=== PATIENT | male | born 1930 | race Caucasian/White ===

== ENCOUNTER 2017-07-29 13:49 | Inpatient (IN) | payer MEDICARE, BC ==
[~2017-07-29] VITALS: Ht 182.9 cm; Wt 87.1 kg
[~2017-07-29 13:49] MED LIST: ALEVE220 M1 PO; ASPIR-LOW81 MG PO; FLOMAX0.4 MG PO; HYDROCODON-ACE1 EA11 PO; NORCO 5-325 TA1 EACH PO; PROAIR HFA INH8.5 GM PO; PROTONIX IV40 MG PO; SYMBICORT 16010.2 GM INH; TYLENOL; ULTRAM 50MG50 MG PO; ULTRAM50 MG PO; ZOFRAN4 MG PO
--- OUTSIDE RECORDS SUMMARY | 2017-07-29 13:52 | XMS REPORT ---
Author Author [facility] Address Unknown Phone Unavailable Care Team Providers Care Low Vision Therapist Name Role Phone JULIO COE Unavailable Unavailable Problems This patient has no known problems. Allergies, Adverse Reactions, Alerts This patient has no known allergies or adverse reactions. Medications This patient has no known medications. Results Test Description Test Time Test Comments Text Results Atomic Results Result Comments FOOT RIGHT COMPLETE [place] [address] Patient Name: JARAD SHERMAN MR #: [id number] : 1930 Age/Sex: 86/M Req #: [id number] Adm Physician: Ordered by: JULIO COE MD Report #: [id number] Location: ER Room/Bed: Procedure: [id number] DX/FOOT RIGHT COMPLETE Exam Date: 05/22/17 Exam Time: 1445 REPORT STATUS: Signed Exam: Right foot 3 views History: Pain Comparison: None. Findings: No fracture or malalignment. Joint spaces preserved. Plantar calcaneal spurs. Impression: No acute osseous abnormality Plantar calcaneal spurs. Signed by: Dr. Jonathan Remy M.D. on 05/22/2017 3:04 PM Dictated By: JONATHAN REMY MD [id number] COPY TO: JULIO COE MD
[2017-07-29] MEDS ORDERED: DIATRIZOATE MEGL/DIATRIZOA SOD 30 ML BTL PO ONE (14:30)
[2017-07-29] MEDS ORDERED: ONDANSETRON HCL INJ 2 MG/ML VIAL IV STA (14:42)
[2017-07-29 14:53] LABS: BASOPHILS % 0.3 % (0.0-1.0); EOSINOPHILS % 0.2 % (0.0-6.0); HEMATOCRIT 41.2 % (38.2-49.6); HEMOGLOBIN 13.8 g/dL (14.0-18.0); LYMPHOCYTES % 13.1 % (18.0-39.1); MEAN CORPUSCULAR HEMOGLOBIN 31.3 pg (28-32); MEAN CORPUSCULAR HGB CONC 33.5 g/dL (31-35); MEAN CORPUSCULAR VOLUME 93.4 fL (81-99); MONOCYTES # (AUTO) 1.4 (0.2-0.8); MONOCYTES % 9.3 % (4.4-11.3); NEUTROPHILS # (AUTO) 11.6 (2.1-6.9); NEUTROPHILS % 76.4 % (38.7-80.0); PLATELET COUNT 266 x10e3/uL (140-360); RED BLOOD COUNT 4.41 x10e6/uL (4.3-5.7); RED CELL DISTRIBUTION WIDTH 14.5 % (11.7-14.4)
[2017-07-29 15:14] LABS: BILIRUBIN,URINE NEGATIVE (NEGATIVE); CLARITY,URINE SL CLOUDY (CLEAR); COLOR,URINE YELLOW (YELLOW); KETONES,URINE NEGATIVE (NEGATIVE); LEUKOCYTE ESTERASE ,URINE NEGATIVE (NEGATIVE); NITRITE,URINE NEGATIVE (NEGATIVE); PROTEIN,URINE DIPSTICK NEGATIVE (NEGATIVE); URINE UROBILINOGEN 0.2 mg/dL (0.2 - 1)
[2017-07-29 15:16] LABS: ALANINE AMINOTRANSFERASE 16 IU/L (0-55); ALBUMIN 3.6 g/dL (3.5-5.0); ALKALINE PHOSPHATASE 70 IU/L (40-150); AMYLASE 25 U/L (25-125); ANION GAP 12.8 mmol/L (8-16); BLOOD UREA NITROGEN 14 mg/dL (7-26); BUN/CREATININE RATIO 17 (6-25); CALCIUM 8.9 mg/dL (8.4-10.2); CARBON DIOXIDE 26 mmol/L (22-29); CHLORIDE 101 mmol/L (98-107); CREATININE, SERUM 0.81 mg/dL (0.72-1.25); EST GLOMERULAR FILTRATION RATE > 60 ML/MIN (60-); GLUCOSE 102 mg/dL (74-118); LIPASE < 4 U/L (8-78); MAGNESIUM 2.1 MG/DL (1.3-2.1); POTASSIUM 3.8 mmol/L (3.5-5.1); SODIUM 136 mmol/L (136-145)
--- NOTE | 2017-07-29 16:06 | Diagnostic Imaging Report ---
PROCEDURE: CT ABDOMEN AND PELVIS WITH CONTRAST TECHNIQUE: The abdomen and pelvis were scanned utilizing a multidetector helical scanner from the diaphragm to the lesser trochanter after the IV administration of 100 cc of Isovue 370 and the oral administration of dilute Gastrografin. Coronal and sagittal multiplanar reformations were obtained. COMPARISON: [facility], CT, CT ABDOMEN/PELVIS W, 03/22/2014, 18:53. INDICATIONS: llq pain, diverticulitis FINDINGS: LOWER THORAX: Stable bilateral lower lobe and right middle lobe fibrotic changes. No consolidation. HEPATOBILIARY: Decreased attenuation of the liver compared to the spleen, consistent with steatosis. No focal lesions. No biliary ductal dilation. Gallbladder is unremarkable. SPLEEN: No splenomegaly. PANCREAS: No focal masses or ductal dilatation. Marked fatty replacement, unchanged from previous ADRENALS: No adrenal nodules. KIDNEYS/URETERS: No hydronephrosis, stones, or solid mass lesions. PELVIC ORGANS/BLADDER: Mild circumferential bladder wall thickening. Marked enlargement of the prostate, which measures approximately 5.5 x 5.9 x 5.0 cm (estimated volume 84 mL). PERITONEUM / RETROPERITONEUM: No free air or fluid. LYMPH NODES: No lymphadenopathy. VESSELS: Atherosclerotic calcification of the abdominal aorta and iliac vessels. GI TRACT: Descending and sigmoid colon diverticulosis. There is an approximately 7 cm portion of the mid descending colon (coronal image 61 and series 2, image 36-43), which shows moderate wall thickening and surrounding fat stranding/inflammatory changes, with associated thickening of the lateroconal fascia. No foci of extraluminal air or well defined adjacent enhancing fluid collections.. Rest of the bowel shows no wall thickening, dilation, or obstruction. BONES AND SOFT TISSUES: No aggressive lytic lesions. Multilevel degenerative disc changes in the lumbosacral spine, worse at L4-L5, and L5-S1. IMPRESSION: 1. Findings consistent with descending colon diverticulitis, in the appropriate clinical setting. No perforation or adjacent abscess formation. 2. Hepatic steatosis. No focal lesions. 3. Mild circumferential bladder wall thickening, likely reflecting bladder outlet obstruction from a markedly enlarged prostate. Jesus Ryan M.D. Dictated by: Jesus Ryan M.D. on 07/29/2017 at 16:15 Electronically approved by: Jesus Ryan M.D. on 07/29/2017 at 16:15
[2017-07-29] MEDS ORDERED: HYDROMORPHONE 1MG/1ML INJ IV PRN (17:00)
[2017-07-29] MEDS ORDERED: METRONIDAZOLE 500MG/NS 100ML IV SCH (18:00)
[2017-07-29] MEDS: SODIUM CHLORIDE 0.9% 1000ML 1,000 ML IV SCH (18:10)
[2017-07-29] MEDS: ONDANSETRON HCL INJ 2 MG/ML VIAL IV PRN (18:10)
[2017-07-29] MEDS: HYDROMORPHONE 2MG/ML INJ IV PRN ×2 (18:12→22:00)
[2017-07-29] MEDS: PIPER-TAZ 3.375 GM 50 ML IV SCH (18:18)
[2017-07-29] MEDS: METRONIDAZOLE 500MG/NS 100ML 100 ML IV SCH (18:50)
--- NOTE | 2017-07-29 20:18 | History and Physical ---
This 87-year-old male comes in with abdominal pain. HISTORY OF PRESENT ILLNESS: Mr. Ortega has a history of hypertension. He was in his usual state of health until 2 days prior to admission the patient started to have left-sided abdominal pain. He did not make much of it. He continued to take some home medications. He did not get any better. The pain was described as sharp and localized to the left lower quadrant and also with no radiation. The pain was unbearable and he came into the emergency room and was found to have diverticulitis. PAST MEDICAL HISTORY: History of peptic ulcer in the past. HOME MEDICATIONS: Symbicort, Flomax for his BPH and tramadol for pain control for osteoarthritis. PAST SURGICAL HISTORY: History of apparent back surgery and neck surgery with Dr. Angel and also inguinal hernia repair. The patient also had history of peptic ulcer in the past which has been treated medically. ALLERGIES: SEE NURSE'S NOTE. REVIEW OF SYSTEMS: Negative for chest pain. No shortness of breath. Positive for some nausea, no vomiting, no diarrhea, no constipation, no rectal bleeding. Positive for abdominal pain. No hematochezia and no hematemesis. No blurring of the eyes, no diplopia and no headaches. PHYSICAL EXAMINATION GENERAL: The patient is alert and oriented x3. Pain is controlled right now with pain medication. VITAL SIGNS: Temperature 97.8, pulse rate of 18, blood pressure 145/71 and pulse oximetry 98%. HEENT: Normocephalic, atraumatic. There is no icterus present. CVS: S1 and S2 normal. Regular rate and rhythm. LUNGS: Clear to auscultation. ABDOMEN: Tender in the left lower quadrant. EXTREMITIES: No clubbing, no cyanosis and no edema. LABORATORY DATA: Initial white count 15,000, hemoglobin 13.8, hematocrit 41.2, chemistry show sodium 136, potassium 3.8, BUN 14 and creatinine of 0.89. Urine was negative. IMAGING: Abdominal CT shows descending colon diverticulitis, no perforations, hepatic steatosis and mild circumferential bladder wall thickening involving enlarged prostate. ASSESSMENT: Acute diverticulitis. PLAN: The patient has been put on Zosyn and hydromorphone for pain control and also Flagyl. Will continue to monitor the patient. Place on clear liquid diet. The patient will continue pain management and some IV fluids. Further recommendations depending on clinical course and also the patient will be here for probably 1-2 days and can be discharged home once he is tolerating regular diet. Will continue to monitor the patient. Job#: [id number]
[2017-07-29 21:15] VITALS: BP 156/71
[2017-07-29] MEDS ORDERED: PIPER-TAZ 3.375 GM/50 ML BAG IV SCH (22:00)
[2017-07-29] MEDS ORDERED: SODIUM CHLORIDE 0.9% 50ML 50 ML ONE (22:27)
[2017-07-29] MEDS ORDERED: IOPAMIDOL 370 MG/ML 200 ML INFUS..BTL INJ ONE (22:27)
[2017-07-30] VITALS (8 sets, daily range): BP systolic 117–180; BP diastolic 60–93
[2017-07-30] MEDS: PIPER-TAZ 3.375 GM 50 ML IV SCH ×3 (02:00→17:15)
[2017-07-30] MEDS: SODIUM CHLORIDE 0.9% 1000ML 1,000 ML IV SCH ×4 (05:56→23:05)
[2017-07-30] MEDS: METRONIDAZOLE 500MG/NS 100ML 100 ML IV SCH ×4 (05:57→17:15)
[2017-07-30 07:36] LABS: BASOPHILS % 0.2 % (0.0-1.0); EOSINOPHILS % 0.3 % (0.0-6.0); HEMATOCRIT 41.8 % (38.2-49.6); HEMOGLOBIN 13.5 g/dL (14.0-18.0); LYMPHOCYTES # (AUTO) 2.3 (1.0-3.2); LYMPHOCYTES % 16.4 % (18.0-39.1); MEAN CORPUSCULAR HEMOGLOBIN 30.5 pg (28-32); MEAN CORPUSCULAR HGB CONC 32.3 g/dL (31-35); MEAN CORPUSCULAR VOLUME 94.6 fL (81-99); MONOCYTES # (AUTO) 1.4 (0.2-0.8); MONOCYTES % 9.9 % (4.4-11.3); NEUTROPHILS # (AUTO) 10.1 (2.1-6.9); NEUTROPHILS % 72.6 % (38.7-80.0); PLATELET COUNT 273 x10e3/uL (140-360); RED BLOOD COUNT 4.42 x10e6/uL (4.3-5.7); RED CELL DISTRIBUTION WIDTH 14.5 % (11.7-14.4)
[2017-07-30 07:55] LABS: ANION GAP 11.3 mmol/L (8-16); BLOOD UREA NITROGEN 11 mg/dL (7-26); BUN/CREATININE RATIO 13 (6-25); CALCIUM 8.8 mg/dL (8.4-10.2); CARBON DIOXIDE 27 mmol/L (22-29); CHLORIDE 104 mmol/L (98-107); CREATININE, SERUM 0.84 mg/dL (0.72-1.25); EST GLOMERULAR FILTRATION RATE > 60 ML/MIN (60-); GLUCOSE 100 mg/dL (74-118); POTASSIUM 4.3 mmol/L (3.5-5.1); SODIUM 138 mmol/L (136-145)
[2017-07-30] MEDS: ONDANSETRON HCL INJ 2 MG/ML VIAL IV PRN ×2 (08:39→22:29)
[2017-07-30] MEDS: HYDROMORPHONE 2MG/ML INJ IV PRN ×2 (08:39→22:29)
[2017-07-30] MEDS: TAMSULOSIN HCL 0.4 MG CAP PO SCH (08:47)
[2017-07-31] VITALS: BP 116/58
[2017-07-31] MEDS: PIPER-TAZ 3.375 GM 50 ML IV SCH ×3 (02:00→19:08)
[2017-07-31 04:00] VITALS: BP 129/65
[2017-07-31] MEDS: METRONIDAZOLE 500MG/NS 100ML 100 ML IV SCH ×4 (06:00→18:00)
[2017-07-31 06:28] VITALS: BP 129/65
[2017-07-31] MEDS: TAMSULOSIN HCL 0.4 MG CAP PO SCH (07:53)
[2017-07-31 08:00] VITALS: BP 175/85
[2017-07-31 12:00] VITALS: BP 150/77
[2017-07-31 16:00] VITALS: BP 173/99
[2017-07-31] MEDS: HYDROMORPHONE 2MG/ML INJ IV PRN (16:30)
[2017-08-01] MEDS: METRONIDAZOLE 500MG/NS 100ML 100 ML IV SCH ×4 (00:17→17:39)
[2017-08-01] MEDS: PIPER-TAZ 3.375 GM 50 ML IV SCH ×3 (01:20→17:39)
[2017-08-01] MEDS: SODIUM CHLORIDE 0.9% 1000ML 1,000 ML IV SCH (03:05)
[2017-08-01 07:00] LABS: BASOPHILS # (AUTO) 0.1 (0.0-0.1); BASOPHILS % 0.5 % (0.0-1.0); EOSINOPHILS # (AUTO) 0.1 (0.0-0.4); HEMATOCRIT 39.1 % (38.2-49.6); HEMOGLOBIN 12.5 g/dL (14.0-18.0); LYMPHOCYTES # (AUTO) 1.9 (1.0-3.2); LYMPHOCYTES % 18.2 % (18.0-39.1); MONOCYTES # (AUTO) 1.2 (0.2-0.8); NEUTROPHILS # (AUTO) 7.3 (2.1-6.9); NEUTROPHILS % 68.7 % (38.7-80.0); PLATELET COUNT 243 x10e3/uL (140-360); RED BLOOD COUNT 4.16 x10e6/uL (4.3-5.7); RED CELL DISTRIBUTION WIDTH 14.6 % (11.7-14.4)
[2017-08-01 07:32] LABS: ANION GAP 11.9 mmol/L (8-16); BLOOD UREA NITROGEN 10 mg/dL (7-26); BUN/CREATININE RATIO 13 (6-25); CALCIUM 8.6 mg/dL (8.4-10.2); CARBON DIOXIDE 25 mmol/L (22-29); CHLORIDE 103 mmol/L (98-107); EST GLOMERULAR FILTRATION RATE > 60 ML/MIN (60-); GLUCOSE 96 mg/dL (74-118); POTASSIUM 3.9 mmol/L (3.5-5.1); SODIUM 136 mmol/L (136-145)
[2017-08-01 07:55] VITALS: BP 156/78
[2017-08-01 08:13] VITALS: BP 156/78
[2017-08-01] MEDS: TAMSULOSIN HCL 0.4 MG CAP PO SCH (09:28)
[2017-08-01 13:19] VITALS: BP 156/86
[2017-08-01 17:25] VITALS: BP 155/91
[2017-08-01] MEDS ORDERED: CIPRO500 MG PO (18:00)
[2017-08-01] MEDS ORDERED: FLAGYL250 MG PO (18:00)
== END 2017-08-01 18:44 | disposition home or self-care (01) | DRG 392 ==
LOC: ER 13:49 → MED/SURG2 20:15
PROVIDERS: ADMIT Family Medicine; ATTEND Family Medicine
DX: K57.32 Diverticulitis of large intestine without perforation or abscess without bleeding (principal); I10 Essential (primary) hypertension; N40.0 Benign prostatic hyperplasia without lower urinary tract symptoms; M19.90 Unspecified osteoarthritis, unspecified site; Z87.11 Personal history of peptic ulcer disease
CPT/HCPCS: 36415; 74177; 80048; 80053; 81001; 82150; 83690; 83735; 85025; 87040; 87086; 96360; 96365; 96374; 99284; J2405; J2543; J7030; Q9967

== ENCOUNTER 2018-07-09 10:15 | Emergency (ER) | payer MEDICARE, BC ==
[~2018-07-09] VITALS: Ht 182.9 cm; Wt 87.1 kg
[~2018-07-09 10:15] MED LIST changes: +CIPRO500 MG PO; +FLAGYL250 MG PO
--- NOTE | 2018-07-09 11:11 | Diagnostic Imaging Report ---
EXAMINATION: Left Hip Films with AP pelvis CLINICAL HISTORY:Status post fall with left lower back pain COMPARISON: None. DISCUSSION: The bones are well-mineralized. No acute, displaced fractures or dislocations. Hip and sacroiliac joints are relatively well-preserved. Degenerative changes at L4-L5 and L5-S1. No gross soft tissue abnormalities. No osteolytic or osteoblastic lesions. IMPRESSION: 1. No acute abnormalities. Signed by: Dr. Jesus Ryan M.D. on 07/09/2018 11:08 AM
--- NOTE | 2018-07-09 11:14 | Diagnostic Imaging Report ---
EXAMINATION: Lumbar spine series. CLINICAL HISTORY: Status post fall, left lower back pain COMPARISON: None. DISCUSSION: 5 views of the lumbar spine are submitted for interpretation. Five nonrib-bearing lumbar type vertebral bodies are identified. No acute, displaced fractures or subluxation. Minimal grade 1 anterolisthesis of L5 on L4 and L3 on L4. Bilateral oblique views show no spondylolysis. Degenerative disc changes with intervertebral disc space narrowing and osteophytosis predominantly at L3-L4, L4-L5 and L5-S1, with associated minimal leftward curvature. Vertebral body heights are preserved. Facet hypertrophy L3-S1. Vascular calcifications in the distal abdominal aorta. IMPRESSION: 1. No acute abnormalities. 2. 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 The staff physician below has personally reviewed this exam on the date of dictation. Signed by: Dr. Jesus Ryan M.D. on 07/09/2018 11:11 AM
== END 2018-07-09 12:42 | disposition home or self-care (01) ==
LOC: ER 10:15
DX: M25.552 Pain in left hip (principal); S70.02XA Contusion of left hip, initial encounter; S30.0XXA Contusion of lower back and pelvis, initial encounter; W01.0XXA Fall on same level from slipping, tripping and stumbling without subsequent striking against object, initial encounter; Y92.008 Other place in unspecified non-institutional (private) residence as the place of occurrence of the external cause; Z87.11 Personal history of peptic ulcer disease
CPT/HCPCS: 72110; 99283

== ENCOUNTER 2018-08-28 10:22 | Inpatient (IN) | payer MEDICARE, BC ==
[~2018-08-28] VITALS: Ht 182.9 cm; Wt 91.8 kg
[2018-08-28] MEDS ORDERED: ONDANSETRON HCL INJ 2MG/ML 2ML 2 MG/ML VIAL IV STA (11:04)
[2018-08-28] MEDS ORDERED: SODIUM CHLORIDE 0.9% 1000ML 1,000 ML IV STA (11:04)
[2018-08-28 12:06] LABS: BASOPHILS % 0.2 % (0.0-1.0); EOSINOPHILS % 0.2 % (0.0-6.0); HEMATOCRIT 46.1 % (38.2-49.6); HEMOGLOBIN 15.3 g/dL (14.0-18.0); LYMPHOCYTES # (AUTO) 1.6 (1.0-3.2); LYMPHOCYTES % 9.3 % (18.0-39.1); MEAN CORPUSCULAR HEMOGLOBIN 30.8 pg (28-32); MEAN CORPUSCULAR HGB CONC 33.2 g/dL (31-35); MEAN CORPUSCULAR VOLUME 92.9 fL (81-99); MONOCYTES # (AUTO) 1.6 (0.2-0.8); MONOCYTES % 9.2 % (4.4-11.3); NEUTROPHILS % 80.4 % (38.7-80.0); PLATELET COUNT 248 x10e3/uL (140-360); RED BLOOD COUNT 4.96 x10e6/uL (4.3-5.7); RED CELL DISTRIBUTION WIDTH 13.9 % (11.7-14.4)
[2018-08-28 12:30] LABS: ALANINE AMINOTRANSFERASE 17 IU/L (0-55); ALBUMIN 3.6 g/dL (3.5-5.0); ALKALINE PHOSPHATASE 79 IU/L (40-150); AMYLASE 24 U/L (25-125); ANION GAP 12.8 mmol/L (8-16); BLOOD UREA NITROGEN 14 mg/dL (7-26); BUN/CREATININE RATIO 15 (6-25); CALCIUM 9.5 mg/dL (8.4-10.2); CARBON DIOXIDE 27 mmol/L (22-29); CHLORIDE 96 mmol/L (98-107); CREATININE, SERUM 0.94 mg/dL (0.72-1.25); EST GLOMERULAR FILTRATION RATE > 60 ML/MIN (60-); GLUCOSE 107 mg/dL (74-118); POTASSIUM 3.8 mmol/L (3.5-5.1); SODIUM 132 mmol/L (136-145)
[2018-08-28 12:33] LABS: LIPASE < 4 U/L (8-78)
[2018-08-28 12:49] LABS: BACTERIA,URINE FEW /HPF; BILIRUBIN,URINE NEGATIVE (NEGATIVE); CLARITY,URINE HAZY (CLEAR); COLOR,URINE YELLOW (YELLOW); EPITHELIAL CELLS,URINE FEW /LPF; KETONES,URINE 1+ (NEGATIVE); LEUKOCYTE ESTERASE ,URINE NEGATIVE (NEGATIVE); NITRITE,URINE NEGATIVE (NEGATIVE); PROTEIN,URINE DIPSTICK NEGATIVE (NEGATIVE); RBC,URINE 0-5 /HPF (0-5); URINE UROBILINOGEN 0.2 mg/dL (0.2 - 1); WBC,URINE (MAN) 0-5 /HPF (0-5)
[2018-08-28 12:50] LABS: MUCUS,URINE FEW (RARE)
[2018-08-28 13:07] LABS: LYMPHOCYTES % (MANUAL) 3 % (19-48); MONOCYTES % (MANUAL) 11 % (3.4-9.0); NEUTROPHILS % (MANUAL) 86 % (40-74)
[2018-08-28 13:08] LABS: PLATELET ESTIMATE ADEQUATE; PLATELET MORPHOLOGY COMMENT NORMAL; RBC MORPHOLOGY COMMENT NORMAL
--- NOTE | 2018-08-28 14:40 | Diagnostic Imaging Report ---
EXAMINATION: CT of the abdomen and pelvis with contrast. TECHNIQUE: Spiral CT images of the abdomen and pelvis were performed from the lung bases to the lesser trochanters after the intravenous administration of 100 cc of Isovue-370 and the oral administration of water. Coronal and sagittal reformatted images were obtained. COMPARISON: 07/29/2017 CLINICAL HISTORY:Left lower quadrant pain DISCUSSION: ABDOMEN/PELVIS: LOWER THORAX:Calcified granuloma right lower lobe. Probable age-related fibrotic changes in the lung bases. HEPATOBILIARY: No focal hepatic lesions. No intra-or extrahepatic biliary ductal dilation. The gallbladder is normal. SPLEEN: Calcified granulomata. No splenomegaly. PANCREAS: Largely fatty replaced. No mass or ductal dilatation. ADRENALS: No adrenal nodules. KIDNEYS/URETERS: No hydronephrosis, stones, or solid mass lesions. PELVIC ORGANS/BLADDER: Urinary bladder is unremarkable. Prostate is enlarged, measuring 5 cm transversely, with mass effect upon the bladder base. Coarse prostatic calcifications. PERITONEUM/RETROPERITONEUM: No free air or fluid. LYMPH NODES: No pelvic sidewall, retroperitoneal, or mesenteric lymphadenopathy. VESSELS: Atherosclerotic calcification of the abdominal aorta and major branch vessels without aneurysmal dilatation. 2 renal arteries supply each kidney. Portal vein, splenic vein, and central superior mesenteric vein are patent. GI TRACT: Innumerable sigmoid diverticula. Approximately 5 cm segment of wall thickening, enhancement, and mesocolic inflammation along the distal descending and proximal sigmoid colon best seen on series 2 image 64. No extraluminal gas or drainable fluid collection. Scattered diverticula elsewhere along the proximal large bowel, without additional foci of inflammatory change. The appendix is not definitively identified. No right lower quadrant inflammation. No small bowel dilatation to suggest obstruction. BONES AND SOFT TISSUE: No osseous destructive lesions. Multilevel degenerative disc changes and facet arthropathy. No focal soft tissue abnormalities. IMPRESSION: Acute sigmoid diverticulitis without gerardo perforation or drainable fluid collection. Atherosclerotic vascular disease. Prostatomegaly. Signed by: Dr. Roger Blevins M.D. on 08/28/2018 2:36 PM
[2018-08-28] MEDS ORDERED: METRONIDAZOLE 500MG/NS 100ML 100 ML IV SCH (17:30)
[2018-08-28] MEDS ORDERED: PIPER-TAZ 3.375 GM 50 ML IV SCH (17:30)
[2018-08-28] MEDS ORDERED: HYDROMORPHONE 1MG/1ML INJ IV PRN (17:45)
--- NOTE | 2018-08-28 18:45 | NUR ---
received pt via WC, AAOx4. Resp even and unlabored. denies pain. hearing aids to bilateral ears however states hears better from left ear. Right AC 20gauge PIV saline locked. oriented to room and use of call light, call light placed within reach and instructed to call for assistance.
[2018-08-28 19:00] VITALS: BP 153/72
[2018-08-28] MEDS ORDERED: SODIUM CHLORIDE 0.9% 50ML 50 ML ONE (19:30)
[2018-08-28] MEDS ORDERED: IOPAMIDOL 370 MG/ML 200 ML INFUS..BTL INJ ONE (19:30)
[2018-08-28] MEDS ORDERED: TRAMADOL HCL 50 MG TAB PO PRN (20:00)
[2018-08-28] MEDS: SODIUM CHLORIDE 0.9% 1000ML 1,000 ML IV SCH (20:23)
[2018-08-28 21:00] VITALS: BP 153/72
[2018-08-28] MEDS: TAMSULOSIN HCL 0.4 MG CAP PO SCH (21:47)
[2018-08-29] VITALS (7 sets, daily range): BP systolic 121–153; BP diastolic 61–77
[2018-08-29] MEDS: PIPER-TAZ 3.375 GM 50 ML IV SCH ×4 (02:14→20:00)
[2018-08-29] MEDS: METRONIDAZOLE 500MG/NS 100ML 100 ML IV SCH ×4 (04:26→22:00)
[2018-08-29 05:51] LABS: BASOPHILS % 0.3 % (0.0-1.0); EOSINOPHILS # (AUTO) 0.1 (0.0-0.4); HEMATOCRIT 39.1 % (38.2-49.6); HEMOGLOBIN 12.9 g/dL (14.0-18.0); LYMPHOCYTES # (AUTO) 1.5 (1.0-3.2); LYMPHOCYTES % 13.3 % (18.0-39.1); MEAN CORPUSCULAR HEMOGLOBIN 30.5 pg (28-32); MEAN CORPUSCULAR VOLUME 92.4 fL (81-99); MONOCYTES # (AUTO) 0.9 (0.2-0.8); MONOCYTES % 8.3 % (4.4-11.3); NEUTROPHILS # (AUTO) 8.3 (2.1-6.9); NEUTROPHILS % 76.6 % (38.7-80.0); PLATELET COUNT 206 x10e3/uL (140-360); RED BLOOD COUNT 4.23 x10e6/uL (4.3-5.7); RED CELL DISTRIBUTION WIDTH 14.1 % (11.7-14.4)
[2018-08-29] MEDS: BUDESONIDE/FORMOTEROL 160/4.5MCG INHALER INH SCH (06:00)
[2018-08-29 06:11] LABS: ALANINE AMINOTRANSFERASE 14 IU/L (0-55); ALBUMIN 2.8 g/dL (3.5-5.0); ALKALINE PHOSPHATASE 55 IU/L (40-150); ANION GAP 11.7 mmol/L (8-16); BLOOD UREA NITROGEN 10 mg/dL (7-26); BUN/CREATININE RATIO 13 (6-25); CALCIUM 8.3 mg/dL (8.4-10.2); CARBON DIOXIDE 24 mmol/L (22-29); CHLORIDE 104 mmol/L (98-107); CREATININE, SERUM 0.79 mg/dL (0.72-1.25); EST GLOMERULAR FILTRATION RATE > 60 ML/MIN (60-); GLUCOSE 104 mg/dL (74-118); POTASSIUM 3.7 mmol/L (3.5-5.1); SODIUM 136 mmol/L (136-145)
--- NOTE | 2018-08-29 07:14 | NUR ---
pt alert resp even and unlabored at this time , no distress noted, pt able to make needs known, call light in reach.
[2018-08-29] MEDS: HYDROMORPHONE 2MG/ML 2 MG/ML ML IV PRN ×2 (10:42→18:04)
[2018-08-29] MEDS: ONDANSETRON HCL INJ 2MG/ML 2ML 2 MG/ML VIAL IV PRN ×2 (10:42→18:04)
[2018-08-29] MEDS: SODIUM CHLORIDE 0.9% 1000ML 1,000 ML IV SCH ×2 (13:32→14:16)
--- NOTE | 2018-08-29 19:49 | NUR ---
REPORT GIVEN TO ON COMING NURSE. FOR CONTINUED CARE.
[2018-08-29] MEDS: TAMSULOSIN HCL 0.4 MG CAP PO SCH (21:00)
[2018-08-30] VITALS (7 sets, daily range): BP systolic 146–178; BP diastolic 71–84
[2018-08-30] MEDS: PIPER-TAZ 3.375 GM 50 ML IV SCH ×3 (02:17→14:10)
[2018-08-30] MEDS: SODIUM CHLORIDE 0.9% 1000ML 1,000 ML IV SCH (04:40)
[2018-08-30] MEDS: METRONIDAZOLE 500MG/NS 100ML 100 ML IV SCH ×3 (04:40→15:00)
[2018-08-30] MEDS: BUDESONIDE/FORMOTEROL 160/4.5MCG INHALER INH SCH ×2 (05:37→10:21)
--- NOTE | 2018-08-30 12:30 | NUR ---
CM SPOKE TO PATIENT AT BEDSIDE REGARDING IMM LETTER. IMM LETTER GIVEN WITH EXPLANATION. ORIGINAL SIGNED AND PLACED IN CHART; COPY OF ORIGINAL DOCUMENT GIVEN TO PATIENT AT BEDSIDE AND PLACED IN CARE TRANSITION FOLDER. CM CONTACT INFORMATION GIVEN TO PATIENT FOR ANY NEEDS OR CONCERNS. PATIENT WITH NO FURTHER QUESTIONS.
--- NOTE | 2018-08-30 17:50 | NUR ---
Discharge orders received from . Per , rx to be faxed to [facility] located on [address], [place] as requested by patient
--- NOTE | 2018-08-30 18:23 | NUR ---
Left FA IV discontinued. No signs of infiltration noted. 2x2 gauze and paper tape placed. Taken via wheelchair by PCT to personal car. AAOX4 to time, person, place, situation. Respirations even and unlabored. Denies pain. All personal belongings , discharge instructions taken with patient. Patient aware rx to be faxed to requested pharmacy ([facility]). Patient picked up by family member.
--- NOTE | 2018-09-01 07:14 | Discharge Summary ---
DISCHARGE DIAGNOSIS: Acute diverticulitis. DISCHARGE FOLLOWUP: In 1-2 weeks with me. DISCHARGE MEDICATIONS: Flagyl 500 mg one p.o. q.8 hours for 10 more days as well as continuation of his home medications. HISTORY OF PRESENT ILLNESS AND HOSPITAL COURSE: See hospital note for full details. The patient is a gentleman, who presented with acute onset of abdominal pain and was found to have sigmoid diverticulitis. He was brought in and placed on IV antibiotics with Flagyl, made a significant recovery in a very short period of time to where for the past 24 hours prior to discharge, he was pain free. He was ambulating well and eating a solid meal without any issues, so then he was discharged home. MD HALEY Jimenez/ANTOINE /[id number]
== END 2018-08-30 18:32 | disposition home or self-care (01) | DRG 872 ==
LOC: ER 10:22 → ERHOLD 17:39 → MED/SURG2 18:47
PROVIDERS: ADMIT Internal Medicine; ATTEND Internal Medicine
DX: A41.9 Sepsis, unspecified organism (principal); K57.92 Diverticulitis of intestine, part unspecified, without perforation or abscess without bleeding; I10 Essential (primary) hypertension; N40.0 Benign prostatic hyperplasia without lower urinary tract symptoms; D64.9 Anemia, unspecified
CPT/HCPCS: 36415; 74177; 80053; 81001; 82150; 83690; 83735; 85025; 99284; J2405; J2543; J7030; Q9967

== ENCOUNTER 2019-01-27 12:33 | Emergency (ER) | payer MEDICARE, BC ==
[~2019-01-27] VITALS: Ht 182.9 cm; Wt 91.6 kg
--- OUTSIDE RECORDS SUMMARY | 2019-01-27 12:37 | XMS REPORT | Clinical Summary ---
Author Author [facility] Address Unknown Phone Unavailable Care Team Providers Care Lance Crewmember/Mlrs Sergeant Name Role Phone Julian Rios MD PCP Allergies Comments Active Allergy Reactions Severity Noted Date nausea Codeine GI 10/24/2018 Intolerance Medications End Date Status Medication Sig Dispensed Refills Start Date Active SYMBICORT 80-4.5 INL 2 PFS PO 6 mcg/actuation inhaler BID 9 Active tamsulosin (FLOMAX) 0.4 TK 1 C PO QD 3 201 mg capsule AFTER 30 9 MINUTES AFTER SUPPER Active Problems Problem Noted Date Primary osteoarthritis of knees, bilateral 10/24/2018 DDD (degenerative disc disease), lumbar 10/24/2018 Encounters Care Team Description Date Type Specialty Angelo Stewart MD Primary osteoarthritis of knees, bilateral (Primary Dx); DDD (degenerative disc disease), lumbar; Chronic lumbar radiculopathy 10/24/2018 Office Visit Orthopedic Surgery after 01/26/2018 Social History Date Tobacco Use Types Packs/Day Years Used Never Smoker Smokeless Tobacco: Never Used Alcohol Use Drinks/Week oz/Week Comments No Alcohol Habits Answer Date Recorded How often do you have a drink containing alcohol? Never 10/24/2018 How many drinks containing alcohol do you have on Not asked a typical day when you are drinking? How often do you have six or more drinks on one Not asked occasion? Sex Assigned at Date Recorded Not on file Industry Job Start Date Occupation Not on file Not on file Not on file Travel End Travel History Travel Start No recent travel history available. Last Filed Vital Signs Time Taken Vital Sign Reading - Blood Pressure - - Pulse - - Temperature - - Respiratory Rate - - Oxygen Saturation - - Inhaled Oxygen - Concentration 10/24/2018 10:54 AM CDT Weight 88.5 kg (195 lb) 10/24/2018 10:54 AM CDT Height 182.9 cm (6') 10/24/2018 10:54 AM CDT Body Mass Index 26.45 Plan of Treatment Health Maintenance Due Date Last Done Comments SHINGLES VACCINES (#1) 1981 65+ PNEUMOCOCCAL VACCINE 1996 (1 of 2 - PCV13) INFLUENZA VACCINE 01/25/2019 Results Not on fileafter 01/26/2018 Insurance Type Payer Benefit Subscriber ID Effective Phone Address Plan / Dates Group Medicare MEDICARE MEDICARE xxxxxxxxxxx 1996-P [place], PART A AND resent [place] B PPO BCBS BCBS xxxxxxxxxxxx 2011-P CHOICE resent PPO/AN WEAVER PPO Advance Directives Patient has advance care planning documents on file. For more information, steve alva contact: Mauricio Ponce [address] [place] [address]
[2019-01-27] MEDS ORDERED: ASPIRIN 81 MG CHEW TAB PO ONE (13:30)
[2019-01-27 13:40] LABS: BASOPHILS % 0.3 % (0.0-1.0); EOSINOPHILS # (AUTO) 0.1 (0.0-0.4); EOSINOPHILS % 0.4 % (0.0-6.0); HEMATOCRIT 45.1 % (38.2-49.6); HEMOGLOBIN 15.1 g/dL (14.0-18.0); LYMPHOCYTES # (AUTO) 2.5 (1.0-3.2); LYMPHOCYTES % 18.5 % (18.0-39.1); MEAN CORPUSCULAR HEMOGLOBIN 31.2 pg (28-32); MEAN CORPUSCULAR HGB CONC 33.5 g/dL (31-35); MEAN CORPUSCULAR VOLUME 93.2 fL (81-99); MONOCYTES # (AUTO) 1.1 (0.2-0.8); MONOCYTES % 8.3 % (4.4-11.3); NEUTROPHILS # (AUTO) 9.6 (2.1-6.9); NEUTROPHILS % 71.8 % (38.7-80.0); PLATELET COUNT 244 x10e3/uL (140-360); RED BLOOD COUNT 4.84 x10e6/uL (4.3-5.7); RED CELL DISTRIBUTION WIDTH 14.5 % (11.7-14.4)
[2019-01-27 14:04] LABS: ALANINE AMINOTRANSFERASE 21 IU/L (0-55); ALBUMIN 3.6 g/dL (3.5-5.0); ALBUMIN/GLOBULIN RATIO 1.1 (0.8-2.0); ALKALINE PHOSPHATASE 71 IU/L (40-150); ANION GAP 15.8 mmol/L (8-16); BLOOD UREA NITROGEN 11 mg/dL (7-26); BUN/CREATININE RATIO 13 (6-25); CALCIUM 9.3 mg/dL (8.4-10.2); CARBON DIOXIDE 24 mmol/L (22-29); CHLORIDE 101 mmol/L (98-107); CREATINE KINASE 96 IU/L (30-200); CREATININE, SERUM 0.82 mg/dL (0.72-1.25); EST GLOMERULAR FILTRATION RATE > 60 ML/MIN (60-); GLUCOSE 94 mg/dL (74-118); POTASSIUM 3.8 mmol/L (3.5-5.1); SODIUM 137 mmol/L (136-145)
--- NOTE | 2019-01-27 14:45 | Diagnostic Imaging Report ---
EXAMINATION: PA and lateral views of the chest. COMPARISON: None CLINICAL HISTORY: Chest pressure DISCUSSION: Lines/tubes: None. Lungs: Increased interstitial markings predominantly at the periphery and lower lung. Pleura: No pleural effusion or pneumothorax. Heart and mediastinum: The cardiomediastinal silhouette is normal. Bones and soft tissues: No acute bony abnormalities. Degenerative changes in the thoracic spine IMPRESSION: No acute cardiopulmonary abnormalities. Fibrotic change of the lung base. Signed by: Dr. Alexandre Choudhary M.D. on 01/27/2019 2:42 PM
[2019-01-27] MEDS ORDERED: HYDRALAZINE HCL 20 MG/ML VIAL ONE (16:52)
[2019-01-27] MEDS ORDERED: HYDRALAZINE HCL 20 MG/ML VIAL IV ONE (17:15)
[2019-01-27] MEDS ORDERED: METOPROLOL TARTRATE INJ 1 MG/ML VIAL IV ONE (18:30)
[2019-01-27] MEDS ORDERED: HYDROCHLOROTHIA25 MG PO (19:30)
[2019-01-27 20:01] VITALS: BP 163/81
== END 2019-01-27 20:29 | disposition home or self-care (01) ==
LOC: ER 12:33
DX: R07.89 Other chest pain (principal); J98.4 Other disorders of lung
CPT/HCPCS: 36415; 71046; 80053; 82550; 82553; 84484; 85025; 93005; 99283; J0360

== ENCOUNTER → 2019-02-09 | Outpatient (CLI) | payer MEDICARE, BC ==
[~2019-02-09] MED LIST changes: +HYDROCHLOROTHIA25 MG PO
== END ==
LOC: CARD 14:57
PROVIDERS: ATTEND Internal Medicine
DX: M79.662 Pain in left lower leg (principal); M79.661 Pain in right lower leg
CPT/HCPCS: 93925

== ENCOUNTER 2019-10-19 23:15 | Emergency (ER) | payer MEDICARE, BC ==
[~2019-10-19] VITALS: Ht 182.9 cm; Wt 91.6 kg
[~2019-10-19 23:15] MED LIST changes: +SYMBICORT 80-10.2 GM; +TAMSULOSIN
[2019-10-20] MEDS ORDERED: LIDOCAINE JELLY 2% 10ML URO-JET ONE (00:02)
[2019-10-20] MEDS ORDERED: LIDOCAINE JELLY 2% 10ML URO-JET TOP ONE (00:15)
--- NOTE | 2019-10-20 01:02 | NUR ---
19F COUDE PLACED AT THIS TIME, PT TOLERATED WELL. ABOUT 200CC CLOUDY YELLOW URINE OUTPUT.
[2019-10-20 01:39] LABS: CLARITY,URINE TURBID (CLEAR); COLOR,URINE AMBER (YELLOW); KETONES,URINE NEGATIVE (NEGATIVE); LEUKOCYTE ESTERASE ,URINE SMALL (NEGATIVE); NITRITE,URINE POSITIVE (NEGATIVE); PROTEIN,URINE DIPSTICK 1+ (NEGATIVE); URINE UROBILINOGEN 0.2 mg/dL (0.2 - 1)
[2019-10-20 01:40] LABS: BACTERIA,URINE MANY /HPF; BILIRUBIN,URINE NEGATIVE (NEGATIVE); EPITHELIAL CELLS,URINE FEW /LPF; WBC,URINE (MAN) 21-50 /HPF (0-5)
[2019-10-20 01:41] LABS: TRIPLE PHOSPHATE CRYSTAL,UR MODERATE (FEW)
[2019-10-20] MEDS ORDERED: CEFTRIAXONE SOD 1 GM/NS 50 ML 50 ML IV ONE (01:45)
[2019-10-20] MEDS ORDERED: CEFTRIAXONE SOD 1 GM VIAL IM ONE (02:00)
[2019-10-20 02:05] VITALS: BP 164/84
[2019-11-07] MEDS ORDERED: [UNRECOGNIZED DRUG - OTHER] PO (16:40)
[2019-11-07] MEDS ORDERED: MUCINEX600 MG PO (16:41)
[2019-11-07] MEDS ORDERED: ALLERGY PILL PO (16:42)
== END 2019-10-20 03:20 | disposition home or self-care (01) ==
LOC: ER 23:15
DX: Z46.6 Encounter for fitting and adjustment of urinary device (principal); N30.91 Cystitis, unspecified with hematuria; I10 Essential (primary) hypertension; M54.9 Dorsalgia, unspecified; G89.29 Other chronic pain
CPT/HCPCS: 51702; 81001; 87086; 87186; 99283; J0696; 51700

== ENCOUNTER 2019-11-14 05:09 | Inpatient (IN) | payer MEDICARE, BC, OTHER ==
[2019-11-09 15:53] LABS: BASOPHILS # (AUTO) 0.1 (0.0-0.1); BASOPHILS % 0.4 % (0.0-1.0); EOSINOPHILS % 0.3 % (0.0-6.0); HEMATOCRIT 45.9 % (38.2-49.6); LYMPHOCYTES # (AUTO) 2.7 (1.0-3.2); LYMPHOCYTES % 22.6 % (18.0-39.1); MEAN CORPUSCULAR HEMOGLOBIN 31.1 pg (28-32); MEAN CORPUSCULAR HGB CONC 32.7 g/dL (31-35); MONOCYTES # (AUTO) 1.1 (0.2-0.8); MONOCYTES % 8.8 % (4.4-11.3); NEUTROPHILS % 67.3 % (38.7-80.0); PLATELET COUNT 234 x10e3/uL (140-360); RED BLOOD COUNT 4.83 x10e6/uL (4.3-5.7); RED CELL DISTRIBUTION WIDTH 14.6 % (11.7-14.4)
--- NOTE | 2019-11-09 16:25 | Diagnostic Imaging Report ---
EXAMINATION: CHEST 2 VIEWS INDICATION: Pre-operative COMPARISON: Chest radiograph 07/24/2019 FINDINGS: LINES/TUBES:None LUNGS:The lungs are mildly hyperinflated. Biapical pleural parenchymal thickening/scarring. Increased prominently peripheral interstitial opacities. No focal consolidation. PLEURA:No pleural effusion or pneumothorax. MEDIASTINUM:The cardiomediastinal silhouette appears normal in size and shape. BONES/SOFT TISSUES:No acute osseous injury. Cervical spine fusion hardware. ABDOMEN:No free air under the diaphragm. IMPRESSION: No focal pneumonia or pulmonary edema. Prominently peripheral interstitial opacities likely representing component of chronic interstitial lung disease. Signed by: Eben Lamar MD on 11/09/2019 4:22 PM
[2019-11-14] VITALS (7 sets, daily range): BP systolic 110–152; BP diastolic 55–83
[~2019-11-14] VITALS: Ht 182.9 cm; Wt 83.6 kg
[~2019-11-14 05:09] MED LIST changes: +ALLERGY PILL PO; +MUCINEX600 MG PO; +[UNRECOGNIZED DRUG - OTHER] PO
--- OUTSIDE RECORDS SUMMARY | 2019-11-14 05:17 | XMS REPORT | Clinical Summary ---
Author Author [facility] Address Unknown Phone Unavailable Care Team Providers Care Fisher Lobster Name Role Phone Julian iRos MD PCP Allergies Comments Active Allergy Reactions Severity Noted Date nausea Codeine GI 10/24/2018 Intolerance Medications End Date Status Medication Sig Dispensed Refills Start Date Active SYMBICORT 80-4.5 INL 2 PFS PO 6 mcg/actuation inhaler BID 9 Active tamsulosin (FLOMAX) 0.4 TK 1 C PO QD 3 mg capsule AFTER 30 9 MINUTES AFTER SUPPER Active Problems Problem Noted Date Primary osteoarthritis of knees, bilateral 9 DDD (degenerative disc disease), lumbar 10/24/2018 Social History Date Tobacco Use Types Packs/Day Years Used Never Smoker Smokeless Tobacco: Never Used Drinks/Week oz/Week Comments Alcohol Use No Alcohol Habits Answer Date Recorded How often do you have a drink containing alcohol? Never 10/24/2018 How many drinks containing alcohol do you have on No t asked a typical day when you are drinking? How often do you have six or more drinks on one Not asked occasion? Sex Assigned at Date Recorded Not on file Industry Job Start Date Occupation Not on file Not on file Not on file Travel End Travel History Travel Start No recent travel history available. Last Filed Vital Signs Not on file Plan of Treatment Health Maintenance Due Date Last Done Comments SHINGLES VACCINES (#1) 1981 65+ PNEUMOCOCCAL VACCINE 1996 (1 of 2 - PCV13) INFLUENZA VACCINE 01/26/2020 Results Not on fileafter 11/13/2018 Insurance Type Payer Benefit Subscriber ID Effective Phone Address Plan / Dates Group Medicare MEDICARE MEDICARE xxxxxxxxxxx 1996-P [place], PART A AND resent [place] B PPO BCBS BCBS xxxxxxxxxxxx 2011-P CHOICE resent PPO/AN WEAVER PPO Advance Directives For more information, please contact: [phone] Patient Paper Winder Explanation Type Date Recorded Advance Directives, Living Will and Medical Power of Medical Records Field Technician
--- OUTSIDE RECORDS SUMMARY | 2019-11-14 05:17 | XMS REPORT ---
Author Author [facility] t Organization [facility] Address [address] [place] [address] Phone Unavailable Care Team Providers Care Heat And Frost Insulator Name Role Phone KULWINDER AMBROSE MD PCP HAMPEL, ASHOK Attphys Unavailable KULWINDER AMBROSE Attphys Unavailable Barbra MITCHELL Attphys Unavailable Keshia BRENNER Attphys Unavailable Tina VARGAS Attphys Unavailable Marcelo COE Attphys Unavailable KULWINDER AMBROSE Admphys Unavailable Payers Payer Name Policy Type Policy Number Effective Date Expiration Date Barbra montano [facility] [id number] 2018 00:00:00 [facility] Medicare A & B [id number] 1996 00:00:00 [facility] [id number] 2011 00:00:00 [facility] Medicare A & B [id number] 1996 00:00:00 [facility] [id number] 2011 00:00:00 [facility] Medicare A & B [id number] 1996 00:00:00 [facility] [id number] 2011 00:00:00 [facility] Medicare A & B [id number] 1996 00:00:00 [facility] [id number] 2011 00:00:00 [facility] Medicare A & B [id number] 1996 00:00:00 [facility] Problems Condition Name Condition Details Condition Category Status Onset Date Resolution Date Last Treatment Date Treating Clinician Comments Source Primary osteoarthritis of knees, bilateral Primary ost eoarthritis of knees, bilateral Disease Active 2018-10-24 00:00:00 Kyle Ponce DDD (degenerative disc disease), lumbar DDD (degenerative di sc disease), lumbar Disease Active 2018-10-24 00:00:00 Mauricio Ponce Diverticulitis of intestine Diverticulitis Problem Active [facility] Allergies, Adverse Reactions, Alerts Allergy Name Allergy Type Status Severity Reaction(s) Onset Date Inacti ve Date Treating Clinician Comments Source Codeine Propensity to adverse reactions to drug Active GI Intolerance 2018-10-24 00:00:00 nausea Mauricio Meth odist Codeine Allergy to Substance Active Mild Nausea 2018-08-28 00:00:00 [facility] codeine DA Active U 2014-03-01 00:00:00 [facility] azithromycin DA Active U 2014-03-01 00:00:00 [facility] Social History Social Habit Start Date Stop Date Quantity Comments Source History SDOH Alcohol Std Drinks Mauricio Ponce History SDOH Alcohol Binge Mauricio Ponce Sex Assigned At Valentin Ponce Alcohol intake 2018-10-24 00:00:00 2018-10-24 00:00:00 Current non-drinker of alcohol (finding) Mauricio Ponce History SDOH Alcohol Frequency 2018-10-24 00:00:00 2018-10-24 00:00:0 0 1 Mauricio Ponce Smoking Status Start Date Stop Date Source Never smoker Mauricio yoder Medications Ordered Medication Name Filled Medication Name Start Date Stop Da te Current Medication? Ordering Clinician Indication Dosage Frequency Signature (SIG) Comments Components Source Hydrochlorothiazide 25 Mg Tablet Hydrochlorothiazide 25 Mg T ablet 2019-01-27 00:00:00 Yes Allyson Whitehead Do 12.5 Daily [facility] tamsulosin (FLOMAX) 0.4 mg capsule 2018-10-21 00:00:00 Yes TK 1 C PO QD AFTER 30 MINUTES AFTER SUPPER Mauricio Ponce SYMBICORT 80-4.5 mcg/actuation inhaler 2018-10-10 00:00:00 Yes INL 2 PFS PO BID Mauricio Ponce Budesonide/Formoterol Fumarate (Symbicor t 80-4.5 Mcg Inhaler) 10.2 Gm Hfa.aer.ad Budesonide/Formoterol Fumarate (Symbicor t 80-4.5 Mcg Inhaler) 10.2 Gm Hfa.aer.ad Yes [facility] Tamsulosin Hcl (Flomax*) 0.4 Mg Cap Tamsulosin Hcl (Flomax*) 0.4 Mg C ap Yes .4 Daily [facility] Budesonide/Formoterol Fumarate (Symbicor t 160-4.5 Mcg Inhaler) 10.2 Gm Hfa.aer.ad, Inhalation Budesonide/Formoterol Fumarate (Symbicor t 160-4.5 Mcg Inhaler) 10.2 Gm Hfa.aer.ad, Inhalation 2019-07-23 00:00:00 No Daily [facility] Metronidazole (Flagyl) 250 Mg Tablet, 500 Mg Oral Metr onidazole (Flagyl) 250 Mg Tablet, 500 Mg Oral 2019-07-23 00:00:00 No 500 Thre e Times A Day [facility] Ciprofloxacin Hcl (Cipro) 500 Mg Tablet, 500 Mg Oral C iprofloxacin Hcl (Cipro) 500 Mg Tablet, 500 Mg Oral 2018-08-30 00:00:00 No 500 Twice A Day [facility] Tylenol , 1000 Mg Tylenol , 1000 Mg 2017-05-22 00:00:00 No 1000 [facility] Albuterol Sulfate (Proair Hfa Inhaler*) 8.5 Gm Inh, 2 Inh Oral Albuterol Sulfate (Proair Hfa Inhaler*) 8.5 Gm Inh, 2 Inh Oral 2015-04-08 00:00:00 No 2 Every 4 Hours as needed for Wheezing [facility] Hydrocodone Bit/Acetaminophen (Courtenay 5-325 Tablet) 1 E ach Tablet, 1 Each Oral Hydrocodone Bit/Acetaminophen (Courtenay 5-325 Tablet) 1 Each Tablet, 1 Each Oral 2015-04-08 00:00:00 No 1 Every 6 Hours [facility] Naproxen Sodium (Aleve) 220 Mg Capsule, 2 Cap Oral Nap roxen Sodium (Aleve) 220 Mg Capsule, 2 Cap Oral 2015-04-08 00:00:00 No 2 Every 6 Hours for Pain [facility] Ondansetron Hcl (Zofran*) 4 Mg Tablet, 4 Mg Oral Ondan setron Hcl (Zofran*) 4 Mg Tablet, 4 Mg Oral 2015-04-08 00:00:00 No 4 Every 6 Hours as needed for Nausea [facility] Pantoprazole Sodium (Protonix Iv) 40 Mg Vial, 40 Mg Or al Pantoprazole Sodium (Protonix Iv) 40 Mg Vial, 40 Mg Oral 2015-04-08 00:00:00 No 40 Twice A Day [facility] Tramadol Hcl (Ultram) 50 Mg Tablet, 50 Mg Oral Tramado l Hcl (Ultram) 50 Mg Tablet, 50 Mg Oral 2015-04-08 00:00:00 No 50 Every 6 Hours as needed for Pain [facility] Hydrocodone Bit/Acetaminophen (Hydrocodo n-Acetaminophen 5-325) 1 Each Tablet, 1 Tab Oral Hydrocodone Bit/Acetaminophen (Hydrocodo n-Acetaminophen 5-325) 1 Each Tablet, 1 Tab Oral 2014-01-21 00:00:00 No 1 Four Times Daily [facility] Aspirin (Aspir-Low) 81 Mg Tablet., 81 Mg Oral Aspiri n (Aspir-Low) 81 Mg Tablet., 81 Mg Oral 2013-01-31 00:00:00 No 81 Da giorgio [facility] Procedures Procedure Date / Time Performed Performing Clinician [facility] e X-ray of chest, two views 2019-01-27 00:00:00 ALLYSON WHITEHEAD CH I [facility] Plan of Care Planned Activity Planned Date Details Comments Source Future Scheduled Test 2020-01-26 00:00:00 INFLUENZA VACCINE [code = INFLUENZA VACCINE] [facility] Future Scheduled Test 1996 00:00:00 65+ PNEUMOCOCCAL V ACCINE (1 of 2 - PCV13) [code = 65+ PNEUMOCOCCAL VACCINE (1 of 2 - PCV13)] [facility] Future Scheduled Test 1981 00:00:00 SHINGLES VACCINES (#1) [code = SHINGLES VACCINES (#1)] [facility] Encounters Start Date/Time End Date/Time Encounter Type Admission Type Attendi [facility] Care Department Encounter ID Source 2019-07-23 12:24:00 2019-07-25 18:28:00 Discharged Inpatient (obs) 1 ARNOL KULWINDER [facility] [id number] [facility] 2019-02-09 14:57:00 2019-02-09 14:57:00 Registered Clinic [facility] [id number] [facility] 2019-01-27 12:33:00 2019-01-27 20:29:00 Departed Emergency Room 1 ALLYSON MITCHELL [facility] [id number] [facility] 2018-08-28 17:39:00 2018-08-30 18:32:00 Discharged Inpatient 1 MONICA BRENNER [facility] [id number] [facility] 2018-07-09 10:15:00 2018-07-09 12:42:00 Departed Emergency Room 1 MONICA BRENNER [facility] [id number] [facility] 2017-07-29 20:15:00 2017-08-01 18:44:[address] ER [address] VARGAS [facility] [id number] [facility] 2017-05-22 13:39:00 2017-05-22 17:15:00 Departed Emergency Room ER JULIO COE [facility] [id number] [facility] 2017-03-29 10:52:00 2017-04-26 23:59:00 Discharged Recurring [facility] [id number] [facility] 2017-03-01 13:05:00 2017-03-26 23:59:00 Discharged Recurring [facility] [id number] [facility] 2017-02-17 10:46:00 2017-02-24 23:59:00 Discharged Recurring [facility] [id number] [facility] 2017-02-03 16:58:00 2017-02-04 10:36:00 Discharged Inpatient (obs) [facility] [id number] [facility] 2017-01-19 05:59:00 2017-01-19 05:59:00 Registered Surgical Day Care [facility] [id number] [facility] Results Test Description Test Time Test Comments Results Result Comments Source CHEST 2 VIEWS 2019-11-09 16:21:00 [place] [address] Patient Name: JARAD SHERMAN MR #: [id number] : 1930 Age/Sex: 89/M Req #: [id number] Adm Physician: Ordered by: ASHOK PURI MD Report #: [id number] Location: OR Room/Bed: Procedure: [id number] DX/CHEST 2 VIEWS Exam Date: 11/09/19 Exam Time: 1540 REPORT STATUS: Signed EXAMINATION: CHEST 2 VIEWS INDICATION: Pre-operative COMPARISON: Chest radiograph 07/24/2019 FINDINGS: LINES/TUBES:None LUNGS:The lungs are mildly hyperinflated. Biapical pleural parenchymal thickening/scarring. Increased prominently perip heral interstitial opacities. No focal consolidation. PLEURA:No pleural effusion or pneumothorax. MEDIASTINUM:The cardiomediastinal silhouette appears normal in size and shape. BONES/SOFT TISSUES:No acute osseous injury. Cervical spine fusion hardware. ABDOMEN:No free air under the diaphragm. IMPRESSION: No focal pneumonia or pulmonary edema. Prominently peripheral interstitial opacities likely representing component of chronic interstitial lung disease. Signed by: Brendan Marcano MD on 11/09/2019 4:22 PM Dictated By: BRENDAN MARCANO MD 21 Transcribed By: SIXTO on 11/09/191621 COPY TO: ASHOK PURI MD Creatine Kinase MB 2019-07-24 06:12:00 Test Item Creatine Kinase MB (test code = 55201-6) 1.20 0-5.0 [facility]roponin [id number] 06:12:00* Test Item Value Reference Range Interpretation Comments Troponin I (test code = DRN1661) 0.019 0-0.300 [facility]Creatine Bwboih2831-61-10 06:09:00* Test Item Value Reference Range Interpretation Comments Creatine Kinase (test code = 2157-6) 219 30-200 [facility] Wpjwf5409-64-97 05:44:00* Test Item Value Reference Range Interpretation Comments Sodium Level (test code = 2951-2) 130 136-145 [facility]Potassium Gyxlg2275-27-11 05:44:00* Test Item Value Reference Range Interpretation Comments Potassium Level (test code = 2823-3) 3.8 3.5-5.1 [facility]wayChloride Tnilf5860-09-27 05:44:00* Test Item Value Reference Range Interpretation Comments Chloride Level (test code = 2075-0) 98 98-107 [facility]wayCarbon Dioxide Igolt5900-13-11 05:44:00* Test Item Value Reference Range Interpretation Comments Carbon Dioxide Level (test code = 2028-9) 21 22-29 [facility] ParkwayAnion Icd0677-26-92 05:44:00* Test Item Value Reference Range Interpretation Comments Anion Gap (test code = 54632-9) 14.8 8-16 [facility]wayBlood Urea Jjvjfgzt9875-95-92 05:44:00* Test Item Value Reference Range Interpretation Comments Blood Urea Nitrogen (test code = 3094-0) 10 7-26 [facility]wayCreatinine2020-01-28 05:44:00* Test Item Value Reference Range Interpretation Comments Creatinine (test code = 2160-0) 0.69 0.72-1.25 [facility]wayBUN/Creatinine Obbgz0645-34-31 05:44:00* Test Item Value Reference Range Interpretation Comments BUN/Creatinine Ratio (test code = 3097-3) 14 6-25 [facility]wayEstimat Glomerular Filtration Rate 2019-07-24 05:44:00* Test Item Value Reference Range Interpretation Comments Estimat Glomerular Filtration Rate (test code = 115404077) > 60 >60 Ranges were taken from the National Kidney Disease Education Program and the [facility] Foundation literature.Reference ranges:60 or greater: Esneck66-29 ( for 3 consecutive months): Chronic kidney disease 15 or less: Kidney failureWise Health Surgical Hospital at ParkwayGlucose Mtplv5172-48-49 05:44:00* Test Item Value Reference Range Interpretation Comments Glucose Level (test code = UBF1637) 76 74-118 [facility]wayCalcium Nhkeq7906-22-08 05:44:00* Test Item Value Reference Range Interpretation Comments Calcium Level (test code = 11160-4) 8.1 8.4-10.2 [facility]wayCHEST SINGLE (PORTABLE)2019-07-24 05:38:00 [place] [address] Patient Name: JARAD SHERMAN MR #: [id number] : 1930 Age/Sex: 89/M Req #: [id number] Adm Physician: KULWINDER AMBROSE MD Ordered by: NATHANIEL PINZON NP Report #: [id number] Location: MED/SURG2 Room/Bed: [facility] Procedure: [id number] DX/CHEST SINGLE (PORTABLE) Exam Date: 07/24/19 Exam Time: 0505 REPORT STATUS: Signed EXAMINATION: CHEST SINGLE (PORTABLE) COMPARISON: Chest x-ray 07/23/2019 INDICATION: WEAKNESS [id number] DISCUSSION: Frontal view of the chest obtained at 0520 hours. HEART AND MEDIASTINUM: The car diomediastinal silhouette is stable. LINES: None. LUNGS: Stable bi basilar patchy airspace opacities superimposed on hyperinflation. No new pulmo nary findings. PLEURA: No pleural effusion or pneumothorax. BONES AND SOFT TISSUES: No focal osseous lesion. The soft tissues are normal. IM PRESSION: Stable bibasilar patchy airspace opacities. No new cardiopulmonary process. Signed by: Dr. Tahmina Nicole MD on 07/24/2019 5:45 AM D ictated By: TAHMINA NICOLE MD 4 Transcribed By: SIXTO on 07/24/19544 COPY TO: NATHANIEL BARGER ACE, NP White Blood Eudqd7871-09-51 05:28:00* Test Item Value Reference Range Interpretation Comments White Blood Count (test code = 6690-2) 8.54 4.8-10.8 [facility] ParkwayRed Blood Orair7608-25-31 05:28:00* Test Item Value Reference Range Interpretation Comments Red Blood Count (test code = 789-8) 4.28 4.3-5.7 [facility]wayHemoglobin2020-01-28 05:28:00* Test Item Value Reference Range Interpretation Comments Hemoglobin (test code = 71615-0) 13.3 14.0-18.0 [facility]wayHematocrit2020-01-28 05:28:00* Test Item Value Reference Range Interpretation Comments Hematocrit (test code = 4544-3) 40.1 38.2-49.6 [facility] ParkwayMean Corpuscular Lgkvxa2087-42-72 05:28:00* Test Item Value Reference Range Interpretation Comments Mean Corpuscular Volume (test code = 787-2) 93.7 81-99 [facility] ParkwayMean Corpuscular Wmfdogmqfc4283-69-29 05:28:00* Test Item Value Reference Range Interpretation Comments Mean Corpuscular Hemoglobin (test code = 785-6) 31.1 28-32 [facility] ParkwayMean Corpuscular Hemoglobin Concent 2019-07-24 05:28:00* Test Item Value Reference Range Interpretation Comments Mean Corpuscular Hemoglobin Concent (test code = 786-4) 33.2 31-35 [facility] ParkwayRed Cell Distribution Bhays3453-72-59 05:28:00* Test Item Value Reference Range Interpretation Comments Red Cell Distribution Width (test code = 17229-8) 14.1 11.7 -14.4 [facility] ParkwayPlatelet Afhvp4377-66-64 05:28:00* Test Item Value Reference Range Interpretation Comments Platelet Count (test code = 777-3) 170 140-360 [facility]wayNeutrophils (%) (Auto)2019-07-24 05:28:00 * Test Item Value Reference Range Interpretation Comments Neutrophils (%) (Auto) (test code = 97271-2) 67.7 38.7-80.0 [facility]wayLymphocytes (%) (Auto)2019-07-24 05:28:00 * Test Item Value Reference Range Interpretation Comments Lymphocytes (%) (Auto) (test code = 736-9) 18.5 18.0-39.1 [facility]wayMonocytes (%) (Auto)2019-07-24 05:28:00* Test Item Value Reference Range Interpretation Comments Monocytes (%) (Auto) (test code = 5905-5) 12.5 4.4-11.3 [facility]wayEosinophils (%) (Auto)2019-07-24 05:28:00 * Test Item Value Reference Range Interpretation Comments Eosinophils (%) (Auto) (test code = 713-8) 0.2 0.0-6.0 [facility]wayBasophils (%) (Auto)2019-07-24 05:28:00* Test Item Value Reference Range Interpretation Comments Basophils (%) (Auto) (test code = 706-2) 0.4 0.0-1.0 [facility] ParkwayIM GRANULOCYTES %2019-07-24 05:28:00* Test Item Value Reference Range Interpretation Comments IM GRANULOCYTES % (test code = IM GRANULOCYTES %) 0.7 0.0- 1.0 [facility]wayNeutrophils # (Auto)2019-07-24 05:28:00* Test Item Value Reference Range Interpretation Comments Neutrophils # (Auto) (test code = 751-8) 5.8 2.1-6.9 [facility] ParkwayLymphocytes # (Auto)2019-07-24 05:28:00* Test Item Value Reference Range Interpretation Comments Lymphocytes # (Auto) (test code = 75542-1) 1.6 1.0-3.2 [facility]wayMonocytes # (Auto)2019-07-24 05:28:00* Test Item Value Reference Range Interpretation Comments Monocytes # (Auto) (test code = 742-7) 1.1 0.2-0.8 [facility]wayEosinophils # (Auto)2019-07-24 05:28:00* Test Item Value Reference Range Interpretation Comments Eosinophils # (Auto) (test code = 711-2) 0.0 0.0-0.4 [facility]wayBasophils # (Auto)2019-07-24 05:28:00* Test Item Value Reference Range Interpretation Comments Basophils # (Auto) (test code = 704-7) 0.0 0.0-0.1 [facility] ParkwayAbsolute Immature Granulocyte (auto 2019-07-24 05:28:00* Test Item Value Reference Range Interpretation Comments Absolute Immature Granulocyte (auto (jose antonio t code = Absolute Immature Granulocyte (auto) 0.06 0-0.1 [facility] ParkwayUrine IUQ5068-56-32 11:53:00* Test Item Value Reference Range Interpretation Comments Urine WBC (test code = 5821-4) 6-10 0-5 [facility] ParkwayUrine TPQ4362-97-29 11:53:00* Test Item Value Reference Range Interpretation Comments Urine RBC (test code = 94460-1) 21-50 0-5 [facility] ParkwayUrine Srhkarvx2396-96-64 11:53:00* Test Item Value Reference Range Interpretation Comments Urine Bacteria (test code = 37426-2) MODERATE NONE [facility] ParkwayUrine Epithelial Uxwnm7083-45-46 11:53:00 * Test Item Value Reference Range Interpretation Comments Urine Epithelial Cells (test code = 58857-1) MODERATE NONE [facility] ParkwayUrine Wraes5867-33-74 11:44:00* Test Item Value Reference Range Interpretation Comments Urine Color (test code = 5778-6) YELLOW YELLOW [facility] ParkwayUrine Ikxfetz3049-01-04 11:44:00* Test Item Value Reference Range Interpretation Comments Urine Clarity (test code = 77296-2) CLEAR CLEAR [facility] ParkwayUrine Specific Zsxyfpe7921-95-04 11:44:00 * Test Item Value Reference Range Interpretation Comments Urine Specific [place] (test code = 5811-5) 1.025 1.010-1.02 5 [facility] ParkwayUrine aR6978-27-26 11:44:00* Test Item Value Reference Range Interpretation Comments Urine pH (test code = 48966-1) 7.5 5-7 [facility] ParkwayUrine Leukocyte Ytahonsj7563-46-95 11:44:00* Test Item Value Reference Range Interpretation Comments Urine Leukocyte Esterase (test code = 5799-2) TRACE NEGATIVE [facility] ParkwayUrine Ivoatgu0066-94-88 11:44:00* Test Item Value Reference Range Interpretation Comments Urine Nitrite (test code = 73800-5) NEGATIVE NEGATIVE [facility] ParkwayUrine Hidqavl3801-63-71 11:44:00* Test Item Value Reference Range Interpretation Comments Urine Protein (test code = 5804-0) NEGATIVE NEGATIVE [facility] ParkwayUrine Glucose (UA)2019-07-23 11:44:00* Test Item Value Reference Range Interpretation Comments Urine Glucose (UA) (test code = 2349-9) NEGATIVE NEGATIVE [facility] ParkwayUrine Tanzzgd5985-95-25 11:44:00* Test Item Value Reference Range Interpretation Comments Urine Ketones (test code = 15849-5) 1+ NEGATIVE [facility] ParkwayUrine Zaadazscmhpt3434-01-12 11:44:00* Test Item Value Reference Range Interpretation Comments Urine Urobilinogen (test code = 72620-0) 0.2 0.2-1 [facility] ParkwayUrine Hwcftrvkj6526-28-13 11:44:00* Test Item Value Reference Range Interpretation Comments Urine Bilirubin (test code = 1978-6) NEGATIVE NEGATIVE [facility] ParkwayUrine Phkwy0899-19-39 11:44:00* Test Item Value Reference Range Interpretation Comments Urine Blood (test code = 30409-9) 1+ NEGATIVE [facility]wayCHEST SINGLE (PORTABLE)2019-07-23 11:21:00 [place] [address] Patient Name: JARAD SHERMAN MR #: [id number] : 1930 Age/Sex: 89/M Req #: [id number] Adm Physician: Ordered by: NATHANIEL PINZON NP Report #: [id number] Location: ER Room/Bed: Procedure: [id number] DX/CHEST SINGLE (PORTABLE) Exam Date: 07/23/19 Exam Time: 1107 REPORT STATUS: Signed EXAMINATION: CHEST SINGLE (PORTABLE) INDICATION: Weakness, cough COMPARISON: Chest are graft 01/27/2019, abdomen and pelvis CT of 08/28/2018 FINDINGS: LINES/TUBES:None LUNGS:The lungs are well-inflated. Bibas ilar patchy opacities, likely subsegmental atelectasis. Increased interstitial markings likely correspond with background of chronic interstitial lung disea se. PLEURA:No pleural effusion or pneumothorax. MEDIASTINUM:The cardio mediastinal silhouette appears unchanged in size and shape. BONES/SOFT TI SSUES:No acute osseous injury. ABDOMEN:No free air under the diaphragm. IMPRESSION: No focal pneumonia or pulmonary edema. Bibasilar subseg mental atelectasis. Increased background of interstitial markings, likely r eflecting chronic interstitial lung disease. Signed by: Brendan Marcano MD on 07/23/2019 11:24 AM Dictated By: BRENDAN MARCANO MD 1124 Transcribed By: SIXTO on 07/23/19 1124 COPY TO: NATHANIEL PINZON LAST SORTER Influenza Virus Types A,B Rdluhmi1042-12-18 11:20:00* Test Item Value Reference Range Interpretation Comments Influenza Virus Types A,B Antigen (test code = 15316-5) POSITIVE FLU A NEGATIVE Results called to MARCELINO CHAVEZ at 1118 on 07/23/19 by Angela Ayoub. RB [place].Resu lts called to JAVI MILLER in infection control at 1118 on 07/23/19 by Angela case.[facility] ParkwayProthrombin Iqct1526-38-24 11:08:00 * Test Item Value Reference Range Interpretation Comments Prothrombin Time (test code = 5902-2) 13.1 11.9-14.5 [facility] ParkwayProthromb Time International Ratio 2019-07-23 11:08:00* Test Item Value Reference Range Interpretation Comments Prothromb Time International Ratio (test code = 6301-6) 0.94 Oral Anticoagulant Therapy INR Values:1. Low Intensity Therapy 1.5 - 2.02 . Moderate Intensity Therapy 2.0 - 3.03. High Intensity Therapy(1) 2.5 - 3. 54. High Intensity Therapy(2) 3.0 - 4.05. Panic Value INR > 5.0 [facility] ParkwayActivated Partial Thromboplast Time 2019-07-23 11:08:00* Test Item Value Reference Range Interpretation Comments Activated Partial Thromboplast Time (test code = 75711-9) 32.4 23.8-35.5 [facility] ParkwayTokane county human resource ssd Luqhmbxbr1559-54-97 11:08:00* Test Item Value Reference Range Interpretation Comments Total Bilirubin (test code = 1975-2) 0.8 0.2-1.2 [facility] ParkwayAspartate Amino Transf (AST/SGOT) 2019-07-23 11:08:00* Test Item Value Reference Range Interpretation Comments Aspartate Amino Transf (AST/SGOT) (test code = Aspartate Amino Transf (AST/SGOT)) 24 5-34 [facility] (ALT/SGPT) 2019-07-23 11:08:00* Test Item Value Reference Range Interpretation Comments Alanine Aminotransferase (ALT/SGPT) (test code = 1742-6) 19 0-55 [facility]wayTotal [id number] 11:08:00* Test Item Value Reference Range Interpretation Comments Total Protein (test code = 2885-2) 6.7 6.5-8.1 [facility] ParkwayAlbumin2020-01-27 11:08:00* Test Item Value Reference Range Interpretation Comments Albumin (test code = 1751-7) 3.6 3.5-5.0 [facility]Globulin2020-01-27 11:08:00* Test Item Value Reference Range Interpretation Comments Globulin (test code = 64383-2) 3.1 2.3-3.5 [facility]in/Globulin [id number] 11:08:00 * Test Item Value Reference Range Interpretation Comments Albumin/Globulin Ratio (test code = 1759-0) 1.2 0.8-2.0 [facility] ParkwayAlkaline Uaihrzqaqiz4577-83-57 11:08:00* Test Item Value Reference Range Interpretation Comments Alkaline Phosphatase (test code = 6768-6) 66 40-150 [facility] ParkwayCHEST 2 [id number] 14:40:00 [facility] [address] [address] Patient Name: JARAD SHERMAN MR #: [id number] : 1930 Age/Sex: 88/M Req #: [id number] Adm Physician: Ordered by: ALLYSON MITCHELL MD Report #: [id number] Location: ER Room/Bed: Procedure: [id number] DX/CHEST 2 VIEWS Exam Date: 01/27/19 Exam Time: 1340 REPORT STATUS: Signed EXAMIN ATION: PA and lateral views of the chest. COMPARISON: None CLINICAL HI STORY: Chest pressure DISCUSSION: Lines/tubes: None. Lungs : Increased interstitial markings predominantly at the periphery and lower ale ng. Pleura: No pleural effusion or pneumothorax. Heart and mediastinu m: The cardiomediastinal silhouette is normal. Bones and soft tissues: No acute bony abnormalities. Degenerative changes in the thoracic spine IM PRESSION: No acute cardiopulmonary abnormalities. Fibrotic change of the lung base. Signed by: Dr. Jonathan Remy M.D. on 01/27/2019 2:42 PM Dictated By: JONATHAN REMY MD 41 Transcribed By: SIXTO on 01/27/191441 COPY TO: ALLYSON MITCHELL MD CT ABDOMEN/PELVIS [id number] 14:27:00 [place] [address] Patient Name: JARAD SHERMAN MR #: [id number] : 1930 Age/Sex: 88/M Req #: [id number] Adm Physician: Ordered by: KENNY SUMMERS LAST SORTER Report #: [id number] Location: ER Room/Bed: Procedure: [id number]/CT ABDOMEN/PELVIS W Exam Date: 08/28/18 Exam Ti me: 1400 REPORT STATUS: Signed E XAMINATION: CT of the abdomen and pelvis with contrast. TECHNIQUE: Spira l CT images of the abdomen and pelvis were performed from the lung bases to th e lesser trochanters after the intravenous administration of 100 cc of Isovue- 370 and the oral administration of water. Coronal and sagittal reformatted im ages were obtained. COMPARISON: 07/29/2017 CLINICAL HISTORY:Left lower q uadrant pain DISCUSSION: ABDOMEN/PELVIS: LOWER THORAX:Calcif ied granuloma right lower lobe. Probable age-related fibrotic changes in the l janell bases. HEPATOBILIARY: No focal hepatic lesions. No intra-or extrahepat ic biliary ductal dilation. The gallbladder is normal. SPLEEN: Calcif ied granulomata. No splenomegaly. PANCREAS: Largely fatty replaced. No mass or ductal dilatation. ADRENALS: No adrenal nodules. KIDNEYS/URETERS: No hydronephrosis, stones, or solid mass lesions. PELVIC ORGANS/BLADDER: U rinary bladder is unremarkable. Prostate is enlarged, measuring 5 cm transvers erick, with mass effect upon the bladder base. Coarse prostatic calcifications. PERITONEUM/RETROPERITONEUM: No free air or fluid. LYMPH NODES: No pelv ic sidewall, retroperitoneal, or mesenteric lymphadenopathy. VESSELS: Ath erosclerotic calcification of the abdominal aorta and major branch vessels wit hout aneurysmal dilatation. 2 renal arteries supply each kidney. Portal vein, splenic vein, and central superior mesenteric vein are patent. GI TRACT: In numerable sigmoid diverticula. Approximately 5 cm segment of wall thickening, enhancement, and mesocolic inflammation along the distal descending and proxim al sigmoid colon best seen on series 2 image 64. No extraluminal gas or draina ble fluid collection. Scattered diverticula elsewhere along the proximal large bowel, without additional foci of inflammatory change. The appendix is not de finitively identified. No right lower quadrant inflammation. No small bowel di latation to suggest obstruction. BONES AND SOFT TISSUE: No osseous destruct adrian lesions. Multilevel degenerative disc changes and facet arthropathy. No fo arnoldo soft tissue abnormalities. IMPRESSION: Acute sigmoid diverti culitis without gerardo perforation or drainable fluid collection. Atherosc lerotic vascular disease. Prostatomegaly. Signed by: Dr. Milagros Blevins M.D. on 08/28/2018 2:36 PM Dictated By: MILAGROS BLEVINS MD 1436 Transcribed By: SIXTO on 9 1436 COPY TO: KENNY SUMMERS NP SP LUMBAR, COMPLETE MIN 4VW 2018-07-09 11:08:00 [address] [address] Patient Name: JARAD SHERMAN MR #: [id number] : 1930 Age/Sex: 87/M Req #: [id number] Adm Physician: Ordered by: JOHN VALDEZ NP Report #: [id number] Location: ER Room/Bed: Procedure: [id number] DX/SP LUMBAR, COMPLETE MIN 4VW Exam Date: 07/09/18 Exam Time: 1040 REPORT STATUS: Sign ed EXAMINATION: Lumbar spine series. CLINICAL HISTORY: Status post fall, left lower back pain COMPARISON: None. DISCUSSION: 5 views of the lumbar spine are submitted for interpretation. Five nonrib-bearing lumbar ty pe vertebral bodies are identified. No acute, displaced fractures or subluxati on. Minimal grade 1 anterolisthesis of L5 on L4 and L3 on L4. Bilateral oblique views show no spondylolysis. Degenerative disc changes with interve rtebral disc space narrowing and osteophytosis predominantly at L3-L4, L4-L5 a nd L5-S1, with associated minimal leftward curvature. Vertebral body height s are preserved. Facet hypertrophy L3-S1. Vascular calcifications in the d istal abdominal aorta. IMPRESSION: 1. No acute abnormalities. 2. 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 The staff physician below has personally reviewed this exam on the date of dictation. Signed by: Dr. Jesus Brown M.D. on 07/09/2018 11:11 AM Dictated By: JESUS BROWN MD 1111 Transcribed By: SIXTO on 07/09/18 1111 COPY TO: JOHN VALDEZ LAST SORTER HIP LEFT 2-3 VW (+/- PELVIS)2018-07-09 11:02:00 [place] [address] Patient Name: JARAD SHERMAN MR #: [id number] : [birth year] Age/Sex: 87/M Req #: [id number] Adm Physician: Ordered by: JOHN VALDEZ NP Report #: [id number] Location: ER Room/Bed: Procedure: [id number] DX/HIP LEFT 2-3 VW (+/- PELVIS) Exam Date: Exam Ti me: REPORT STATUS: Signed EXAMI NATION: Left Hip Films with AP pelvis CLINICAL HISTORY:Status post fall wi th left lower back pain COMPARISON: None. DISCUSSION: The bones are well-mineralized. No acute, displaced fractures or dislocations. Hip and sa croiliac joints are relatively well-preserved. Degenerative changes at L4-L5 a nd L5-S1. No gross soft tissue abnormalities. No osteolytic or osteoblastic l esions. IMPRESSION: 1. No acute abnormalities. Sig sarah by: Dr. Jesus Brown M.D. on 07/09/2018 11:08 AM Dictated By: SOBIA BROWN MD 1108 T ranscribed By: SIXTO on 07/09/18 1108 COPY TO: JOHN VALDEZ LAST SORTER CT ABDOMEN/PELVIS W [place] [address] Patient Name: JARAD SHERMAN MR #: [id number] : 1930 Age/Sex: 87/M Req #: [id number] Adm Physician: Ordered by: SHERIDAN ARELLANO Report #: [id number] Location: ER Room/Bed: Procedure: [id number] CT/CT ABDOMEN/PELVIS W Exam Date: 07/29/17 Exam Time: 1525 REPORT STATUS: Signed PROCEDURE: CT ABDOMEN AND PELVIS WITH CONTRAST TECHNIQUE: The abdomen and pelvis were scanned utilizing a multidetector helical scanner fr om the diaphragm to the lesser trochanter after the IV administration of 100 cc of Isovue 370 and the oral administration of dilute Gastrografin. Coronal and sagittal multiplanar reformations were obtained. COMPARISON: [facility], CT, CT ABDOMEN/PELVIS W, 03/22/2014, 18:53. INDICATI ONS: llq pain, diverticulitis FINDINGS: LOWER THORAX: Stable bilateral lower lobe and right middle lobe fibrotic changes. No consolidation. HEPAT OBILIARY: Decreased attenuation of the liver compared to the spleen, consiste nt with steatosis. No focal lesions. No biliary ductal dilation. Gallbladder is unremarkable. SPLEEN: No splenomegaly. PANCREAS: No focal masses or ducta l dilatation. Marked fatty replacement, unchanged from previous ADRENALS: N o adrenal nodules. KIDNEYS/URETERS: No hydronephrosis, stones, or solid mass l esions. PELVIC ORGANS/BLADDER: Mild circumferential bladder wall thickening. Marked enlargement of the prostate, which measures approximately 5.5 x 5.9 x 5.0 cm (estimated volume 84 mL). PERITONEUM / RETROPERITONEUM: No free air or fluid. LYMPH NODES: No lymphadenopathy. VESSELS: Atherosclerotic calcifica tion of the abdominal aorta and iliac vessels. GI TRACT: Descending and sig moid colon diverticulosis. There is an approximately 7 cm portion of the mid descending colon (coronal image 61 and series 2, image 36-43), which shows mo derate wall thickening and surrounding fat stranding/inflammatory changes, wi th associated thickening of the lateroconal fascia. No foci of extraluminal a ir or well defined adjacent enhancing fluid collections.. Rest of the bowel shows no wall thickening, dilation, or obstruction. BONES AND SOFT TISSU ES: No aggressive lytic lesions. Multilevel degenerative disc changes in the lumbosacral spine, worse at L4-L5, and L5-S1. IMPRESSION: 1. Find ings consistent with descending colon diverticulitis, in the appropriate clin ical setting. No perforation or adjacent abscess formation. 2. Hepatic stea tosis. No focal lesions. 3. Mild circumferential bladder wall thickening, like ly reflecting bladder outlet obstruction from a markedly enlarged prostate. Jesus Brown M.D. Dictated by: Jesus Brown M.D. on 07/29/2017 at 16:15 Electronically approved by: Jesus Brown M.D. on 07/29/2017 at 16:15 Dictated By: JESUS BROWN MD Electro nically Signed By: JESUS BROWN MD on 07/29/17 161 Transcribed By: ROYA on 07/29/17 161 COPY TO: SHERIDAN ARELLANO FOOT RIGHT COMPLETE [place] [address] Patient Name: JARAD SHERMAN MR #: [id number] : 1930 Age/Sex: 86/M Req #: [id number] Adm Physician: Ordered by: JULIO COE MD Report #: [id number] Location: ER Room/ Bed: Procedure: [id number] DX/FOOT RIGHT COMPLETE Exa m Date: 05/22/17 Exam Time: 1445 REPORT STATUS: Signed Exam: Right foot 3 views History: Pain Comparison: Non e. Findings: No fracture or malalignment. Joint spaces preserved. Plantar calcaneal spurs. Impression: No acute osseous abnormality Plantar calcaneal spurs. Signed by: Dr. Jonathan Remy M.D. on 05/22/2017 3:04 PM Dictated By: JONATHAN REMY MD 1504 Transcribed By: SIXTO on 05/22/17 1508 COPY T O: JULIO COE MD
[2019-11-14] MEDS ORDERED: SODIUM CHLORIDE 0.9% 1000ML 1,000 ML ONE (05:38)
[2019-11-14] MEDS ORDERED: CEFEPIME 1GM/NS 0.9% 50 ML 50 ML IV ONE (05:46)
[2019-11-14] MEDS ORDERED: GENTAMICIN 80MG/NS 100 ML 200 ML IV ONE (05:49)
[2019-11-14] MEDS ORDERED: ANTIBIOTIC28.4 GM PO (06:05)
[2019-11-14] MEDS ORDERED: antiobiotic PO (06:09)
[2019-11-14] MEDS ORDERED: B&O 60MG R/S 60 MG SUPP PR ONE (06:38)
[2019-11-14] MEDS ORDERED: IOPAMIDOL 300MG/ML 50ML INFUS..BTL IV ONE (06:38)
[2019-11-14 06:53] LABS: ANION GAP 16.3 mmol/L (8-16); BLOOD UREA NITROGEN 14 mg/dL (7-26); BUN/CREATININE RATIO 16 (6-25); CALCIUM 9.3 mg/dL (8.4-10.2); CARBON DIOXIDE 22 mmol/L (22-29); CHLORIDE 104 mmol/L (98-107); CREATININE, SERUM 0.89 mg/dL (0.72-1.25); EST GLOMERULAR FILTRATION RATE > 60 ML/MIN (60-); GLUCOSE 98 mg/dL (74-118); POTASSIUM 4.3 mmol/L (3.5-5.1); SODIUM 138 mmol/L (136-145)
[2019-11-14] MEDS ORDERED: MEPERIDINE HCL INJ 25 MG/ML VIAL ONE (10:00)
[2019-11-14] MEDS ORDERED: B&O 60MG R/S 60 MG SUPP PR PRN (10:15)
[2019-11-14] MEDS ORDERED: DIPHENHYDRAMINE HCL INJ 50 MG/ML VIAL IM PRN (10:15)
[2019-11-14] MEDS ORDERED: ONDANSETRON HCL INJ 2MG/ML 2ML 2 MG/ML VIAL IV PRN (10:15)
[2019-11-14] MEDS ORDERED: ACETAMINOPHEN 1000 MG/100 ML IV PRN (10:15)
[2019-11-14] MEDS ORDERED: FENTANYL CITRATE/PF 100MCG/2 ML INJ ONE ×2 (10:36→18:40)
[2019-11-14 10:42] LABS: BASOPHILS % 0.3 % (0.0-1.0); HEMATOCRIT 45.9 % (38.2-49.6); HEMOGLOBIN 14.9 g/dL (14.0-18.0); LYMPHOCYTES # (AUTO) 1.7 (1.0-3.2); LYMPHOCYTES % 14.6 % (18.0-39.1); MEAN CORPUSCULAR HEMOGLOBIN 31.3 pg (28-32); MEAN CORPUSCULAR HGB CONC 32.5 g/dL (31-35); MEAN CORPUSCULAR VOLUME 96.4 fL (81-99); MONOCYTES # (AUTO) 0.4 (0.2-0.8); MONOCYTES % 3.5 % (4.4-11.3); NEUTROPHILS # (AUTO) 9.5 (2.1-6.9); NEUTROPHILS % 80.6 % (38.7-80.0); PLATELET COUNT 219 x10e3/uL (140-360); RED BLOOD COUNT 4.76 x10e6/uL (4.3-5.7); RED CELL DISTRIBUTION WIDTH 14.5 % (11.7-14.4)
[2019-11-14] MEDS ORDERED: FUROSEMIDE INJ 10 MG/ML 4 ML VIAL ONE (10:44)
[2019-11-14 11:06] LABS: ANION GAP 15.2 mmol/L (8-16); BLOOD UREA NITROGEN 13 mg/dL (7-26); BUN/CREATININE RATIO 15 (6-25); CALCIUM 8.8 mg/dL (8.4-10.2); CARBON DIOXIDE 20 mmol/L (22-29); CHLORIDE 105 mmol/L (98-107); CREATININE, SERUM 0.84 mg/dL (0.72-1.25); EST GLOMERULAR FILTRATION RATE > 60 ML/MIN (60-); GLUCOSE 129 mg/dL (74-118); POTASSIUM 4.2 mmol/L (3.5-5.1); SODIUM 136 mmol/L (136-145)
--- NOTE | 2019-11-14 12:45 | Diagnostic Imaging Report ---
OR Fluoroscopy: IMPRESSION: Fluoroscopy service provided in the OR. Interpretation not requested. Signed by: Derrick Sun MD on 11/14/2019 12:41 PM
[2019-11-14] MEDS ORDERED: MORPHINE SULFATE INJ 4 MG/ML INJ 1ML ONE (12:47)
[2019-11-14] MEDS ORDERED: ACETAMINOPHEN 1000 MG/100 ML 100 ML IV ONE (13:49)
[2019-11-14] MEDS: DOCUSATE SODIUM 100 MG CAP PO SCH (16:58)
[2019-11-14] MEDS: TRAMADOL HCL 50 MG TAB PO PRN ×2 (16:58→23:12)
[2019-11-14] MEDS: PHENAZOPYRIDINE HCL 100 MG TAB PO SCH ×2 (16:58→18:22)
[2019-11-14] MEDS: CEFEPIME 1GM/NS 0.9% 50 ML 50 ML IV SCH (16:59)
[2019-11-14] MEDS: D5.45%NS/KCL 20MEQ 1,000 ML IV SCH ×2 (17:02→20:15)
[2019-11-14] MEDS ORDERED: DEXAMETHASONE SOD PHOS INJ 4 MG/ML VIAL ONE (18:28)
[2019-11-14] MEDS ORDERED: ONDANSETRON HCL INJ 2MG/ML 2ML 2 MG/ML VIAL ONE (18:28)
[2019-11-14] MEDS ORDERED: PROPOFOL IV EMULSION 10 MG/ML 20 ML VIAL ONE (18:28)
[2019-11-14] MEDS ORDERED: SEVOFLURANE INHAL SOLN 250 ML PEN BTL ONE (18:28)
[2019-11-14] MEDS ORDERED: LIDOCAINE HCL 2% LOCAL INJ 5 ML SDV VIAL INJ ONE (18:28)
[2019-11-15] VITALS (9 sets, daily range): BP systolic 102–151; BP diastolic 66–94
--- NOTE | 2019-11-15 03:43 | Operative Report ---
DATE OF PROCEDURE: 11/14/2019 SURGEON: Ty Gould MD PREOPERATIVE DIAGNOSES: 1. Obstructive benign prostatic hyperplasia. 2. Urinary tract infections. POSTOPERATIVE DIAGNOSES: 1. Obstructive benign prostatic hyperplasia. 2. Urinary tract infections. 3. 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 4. Potential for renal colic due to resecting tumor proximity of the intramural ureter. 5. Cystolithiasis. 6. Diffuse bladder diverticula. OPERATIONS PERFORMED: 1. Cystourethroscopy with bilateral ureteral catheterization and retrograde ureteropyelography (separate procedure performed for the urinary tract infections). 2. Interpretation of retrograde ureteropyelography. 3. Supervision of fluoroscopy, no radiologist present. 4. Cystolitholapaxy (separate procedure performed for cystolithiasis). 5. Cystourethroscopy with transurethral resection and vaporization of bladder tumor. 6. Cystourethroscopy with insertion of left indwelling ureteral stent (separate procedure performed to prevent renal colic due to potential for obstruction of the intramural ureter due to proximity of the tumor resection). 7. Cystourethroscopy with first-stage transurethral resection of the prostate. ANESTHESIA: General. COMPLICATIONS: None. CLINICAL SUMMARY: Patel Ortega is an 89-year-old man with urinary tract infections and urinary retention. He has been wearing a Ely catheter. The patient was supposed to have this procedure a couple of months ago. However, he was afraid of the COVID-19 pandemic and he did postpone his procedure, this resulted of course complications in the Ely catheter as expected including emergency room visits for urinary tract infections as well as clogged catheter. The patient was brought for the above procedures. He is aware of the risks of bleeding, infection, injury to adjacent structures, incontinence, impotence, retrograde ejaculation, need for additional procedures and elected to proceed. The patient understands that we do have the COVID-19 emergency situation and he proceeds with this procedure in hopes of preventing additional complications to the one he has already experienced from the Ely catheter. OPERATIVE PROCEDURE IN DETAIL: Informed consent was verified. Patel Ortega was properly identified, taken to the operating room, placed on the cystoscopy table in supine position. Anesthesia was uneventfully begun. The patient was then carefully and gently repositioned in the dorsal lithotomy position with all pressure points well padded. His genitalia were prepared and draped in usual sterile fashion. The cystoscope sheath with the visual obturator in place was atraumatically inserted into the patient's urethra. It was guided unremarkable distal urethra through normal sphincteric region through the prostate bed, which was significant for severely obstructive BPH with long prostatic urethra with kissing lateral lobes. No elevated median bar. We entered the patient's bladder, where panendoscopy revealed multiple stones. These stones were fragmented with a grasper and extracted. There were diffuse small diverticula noted throughout the bladder. Normally positioned configured ureteral orifices were identified. A ureteral catheter was used to cannulate each ureter and ureteropyelography were performed. Interpretation of retrograde ureteropyelography contrast was instilled in retrograde fashion bilaterally. There were no tumors, no stones, no diverticula. Unobstructed drainage was observed bilaterally fluoroscopically. We utilized the plasma button electrode to begin transurethral resection of the prostate by vaporizing the prostate, first we worked in the bladder neck region. Once, we took down the bladder neck region and the proximal lateral lobe on the left hand side, this revealed a tumor that was present just inside the bladder neck that was not visible until we vaporized the prostatic tissue that was obstructing it. It was away from the ureteral orifice by several millimeters. We utilized cold cup biopsy forceps to obtain several specimens of this lesion. We then utilized the plasma button electrode to completely vaporize this bladder tumor down to the level of the bladder and then electrocautery was utilized to achieve hemostasis. This is the fact that this tumor was in proximity to the intramural ureter and may cause to obstruct cause renal colic. We negotiated the guidewire into this left ureter and with cystoscopic and fluoroscopic guidance, a 7-Yakut indwelling ureteral catheter was then placed. It was coiled in the patient's kidneys as well as the patient's bladder. The retaining suture was removed. We then utilized a plasma button electrode to complete transurethral resection of prostate. The patient's prostate was huge. The apical region was specifically difficult due to the fact the patient had nodular BPH that was very prominent more on the left-side than the right side. Once we cleared the bladder neck region of prostatic tissue down the surgical capsule, we worked on the left lateral lobe. We spent most of our resection time eliminating the apical region on the left hand side, we then proceeded with the limiting more on the left hand side. Some vaporization was carried out on the right-hand side, but our resection procedure was over an wtci-kcz-t-half in this elderly patient and we felt that it would pose risk for him to continue resecting and despite a very efficient surgery, the patient's prostate is massive and much residual tissue remained mostly on the right side. The resectoscope was withdrawn. Ely catheter was placed. It was irrigated to further ensure it worked properly. It was placed on continuous irrigation with completely clear efflux. The patient was then uneventfully reversed from anesthesia and taken to recovery in stable condition. There were no complications to the procedure. He tolerated the procedure well. Plans will be to proceed with routine postoperative care. Longer-term plans will include returning the patient to the operating room in a couple of months to remove his stent and evaluate for any residual or recurrent bladder cancer and potentially biopsying the tumor base. At that point in time, we can entertain a 2nd stage transurethral resection of the prostate procedure. Ty Gould MD [place]/MODL /[id number] cc: Julian Rios MD
[2019-11-15 05:41] LABS: BASOPHILS % 0.2 % (0.0-1.0); EOSINOPHILS % 0.1 % (0.0-6.0); HEMATOCRIT 46.3 % (38.2-49.6); HEMOGLOBIN 15.3 g/dL (14.0-18.0); LYMPHOCYTES % 12.6 % (18.0-39.1); MEAN CORPUSCULAR HEMOGLOBIN 31.5 pg (28-32); MEAN CORPUSCULAR VOLUME 95.5 fL (81-99); MONOCYTES # (AUTO) 1.4 (0.2-0.8); MONOCYTES % 8.7 % (4.4-11.3); NEUTROPHILS # (AUTO) 12.4 (2.1-6.9); NEUTROPHILS % 77.6 % (38.7-80.0); PLATELET COUNT 209 x10e3/uL (140-360); RED BLOOD COUNT 4.85 x10e6/uL (4.3-5.7); RED CELL DISTRIBUTION WIDTH 14.4 % (11.7-14.4)
[2019-11-15 06:03] LABS: ANION GAP 14.2 mmol/L (8-16); BLOOD UREA NITROGEN 10 mg/dL (7-26); BUN/CREATININE RATIO 14 (6-25); CALCIUM 8.4 mg/dL (8.4-10.2); CARBON DIOXIDE 21 mmol/L (22-29); CHLORIDE 104 mmol/L (98-107); CREATININE, SERUM 0.71 mg/dL (0.72-1.25); EST GLOMERULAR FILTRATION RATE > 60 ML/MIN (60-); GLUCOSE 115 mg/dL (74-118); POTASSIUM 4.2 mmol/L (3.5-5.1); SODIUM 135 mmol/L (136-145)
[2019-11-15] MEDS: CEFEPIME 1GM/NS 0.9% 50 ML 50 ML IV SCH ×2 (06:30→17:03)
[2019-11-15] MEDS: D5.45%NS/KCL 20MEQ 1,000 ML IV SCH ×2 (06:37→23:22)
[2019-11-15] MEDS: DOCUSATE SODIUM 100 MG CAP PO SCH ×2 (08:23→17:03)
[2019-11-15] MEDS: PHENAZOPYRIDINE HCL 100 MG TAB PO SCH ×3 (08:23→17:03)
--- OUTSIDE RECORDS SUMMARY | 2019-11-15 08:54 | XMS REPORT | Clinical Summary ---
Author Author [employer] Organization [employer] Address Unknown Phone Unavailable Care Team Providers Care Variety Performer Name Role Phone Julian Rios MD PCP [...] BCBS BCBS xxxxxxxxxxxx 2011-P CHOICE resent PPO/AN WEAEVR PPO Advance Directives For more information, please contact: [phone] Patient Comber Operator Explanation Type Date Recorded Advance Directives, Living Will and Medical Power of Electronics Technology Instructor
--- OUTSIDE RECORDS SUMMARY | 2019-11-15 08:54 | XMS REPORT ---
Author Author [facility] t Organization [facility] Address [address] [place] [address] Phone Unavailable Care Team Providers Care Burrito Maker Name Role Phone KULWINDER AMBROSE MD PCP KULWINDER AMBROSE Attphys Unavailable Barbra MITCHELL Attphys Unavailable Keshia BRENNER Attphys Unavailable Tina VARGAS Attphys Unavailable Marcelo COE Attphys Unavailable KULWINDER AMBROSE Admphys Unavailable Payers Payer Name Policy Type Policy Number Effective Date Expiration Date Barbra montano [facility] [id number] 2018 00:00:00 [facility] Medicare A & B [id number] 1996 00:00:[address] [facility] [id number] 2011 00:00:00 [facility] Medicare A & B [id number] 1996 00:00:[address] [facility] [id number] 2011 00:00:00 [facility] Medicare A & B [id number] 1996 00:00:[address] [facility] [id number] 2011 00:00:00 [facility] Medicare A & B [id number] 1996 00:00:[address] [facility] [id number] 2011 00:00:00 [facility] Medicare A & B [id number] 1996 00:00:00 C [facility] Problems Condition Name Condition Details Condition Category Status Onset Date Resolution Date Last Treatment Date Treating Clinician Comments Source Primary osteoarthritis of knees, bilateral Primary ost eoarthritis of knees, bilateral Disease Active 2018-10-24 00:00:00 Kyle Ponce DDD (degenerative disc disease), lumbar DDD (degenerative di sc disease), lumbar Disease Active 2018-10-24 00:00:00 Mauricio Ponce Diverticulitis of intestine Diverticulitis Problem Active [facility] Allergies, Adverse Reactions, Alerts Allergy Name Allergy Type Status Severity Reaction(s) Onset Date Inacti ve Date Treating Clinician Comments Source Codeine Propensity to adverse reactions to drug Active GI Intolerance 2018-10-24 00:00:00 nausea Martínez Meth odist Codeine Allergy to Substance Active Mild Nausea 2018-08-28 00:00:00 [facility] codeine DA Active U 2014-03-01 00:00:00 [facility] azithromycin DA Active U 2014-03-01 00:00:00 [facility] Social History Social Habit Start Date Stop Date Quantity Comments Source History SDOH Alcohol Std Drinks Mauricio Ponce History SDOH Alcohol Binge Mauricio Ponce Sex Assigned At [facility] stoilir Ponce Alcohol intake 2018-10-24 00:00:00 2018-10-24 00:00:00 Current non-drinker of alcohol (finding) Mauricio Ponce History SDOH Alcohol Frequency 2018-10-24 00:00:00 2018-10-24 00:00:0 0 1 Mauricio Ponce Smoking Status Start Date Stop Date Source Never smoker Martínez Heidi yoder Medications Ordered Medication Name Filled Medication Name Start Date Stop Da te Current Medication? Ordering Clinician Indication Dosage Frequency Signature (SIG) Comments Components Source Hydrochlorothiazide 25 Mg Tablet Hydrochlorothiazide 25 Mg T ablet 2019-01-27 00:00:00 Yes Allyson Whitehead Do 12.5 Daily [facility] tamsulosin (FLOMAX) 0.4 mg capsule 2018-10-21 00:00:00 Yes TK 1 C PO QD AFTER 30 MINUTES AFTER SUPPER Mauricio Ponce SYMBICORT 80-4.5 mcg/actuation inhaler 2018-10-10 00:00:00 Yes INL 2 PFS PO BID Mauricio Ponce Budesonide/Formoterol Fumarate (Symbicor t 80-4.5 Mcg Inhaler) 10.2 Gm Hfa.aer.ad Budesonide/Formoterol Fumarate (Symbicor t 80-4.5 Mcg Inhaler) 10.2 Gm Hfa.aer.ad Yes [facility] Tamsulosin Hcl (Flomax*) 0.4 Mg Cap Tamsulosin Hcl (Flomax*) 0.4 Mg C ap Yes .4 Daily [facility] Budesonide/Formoterol Fumarate (Symbicor t 160-4.5 Mcg Inhaler) 10.2 Gm Hfa.aer.ad, Inhalation Budesonide/Formoterol Fumarate (Symbicor t 160-4.5 Mcg Inhaler) 10.2 Gm Hfa.aer.ad, Inhalation 2019-07-23 00:00:00 No Daily [facility] Metronidazole (Flagyl) 250 Mg Tablet, 500 Mg Oral Metr onidazole (Flagyl) 250 Mg Tablet, 500 Mg Oral 2019-07-23 00:00:00 No 500 Thre e Times A Day [facility] Ciprofloxacin Hcl (Cipro) 500 Mg Tablet, 500 Mg Oral C iprofloxacin Hcl (Cipro) 500 Mg Tablet, 500 Mg Oral 2018-08-30 00:00:00 No 500 Twice A Day [facility] Tylenol , 1000 Mg Tylenol , 1000 Mg 2017-05-22 00:00:00 No 1000 [facility] Albuterol Sulfate (Proair Hfa Inhaler*) 8.5 Gm Inh, 2 Inh Oral Albuterol Sulfate (Proair Hfa Inhaler*) 8.5 Gm Inh, 2 Inh Oral 2015-04-08 00:00:00 No 2 Every 4 Hours as needed for Wheezing [facility] Hydrocodone Bit/Acetaminophen (Austin 5-325 Tablet) 1 E ach Tablet, 1 Each Oral Hydrocodone Bit/Acetaminophen ([place] 5-325 Tablet) 1 Each Tablet, 1 Each Oral 2015-04-08 00:00:00 No 1 Every 6 Hours [facility] Naproxen Sodium (Aleve) 220 Mg Capsule, 2 Cap Oral Nap roxen Sodium (Aleve) 220 Mg Capsule, 2 Cap Oral 2015-04-08 00:00:00 No 2 Every 6 Hours for Pain [facility] Ondansetron Hcl (Zofran*) 4 Mg Tablet, 4 Mg Oral Ondan setron Hcl (Zofran*) 4 Mg Tablet, 4 Mg Oral 2015-04-08 00:00:00 No 4 Every 6 Hours as needed for Nausea [facility] Pantoprazole Sodium (Protonix Iv) 40 Mg Vial, 40 Mg Or al Pantoprazole Sodium (Protonix Iv) 40 Mg Vial, 40 Mg Oral 2015-04-08 00:00:00 No 40 Twice A Day [facility] Tramadol Hcl (Ultram) 50 Mg Tablet, 50 Mg Oral Tramado l Hcl (Ultram) 50 Mg Tablet, 50 Mg Oral 2015-04-08 00:00:00 No 50 Every 6 Hours as needed for Pain [facility] Hydrocodone Bit/Acetaminophen (Hydrocodo n-Acetaminophen 5-325) 1 Each Tablet, 1 Tab Oral Hydrocodone Bit/Acetaminophen (Hydrocodo n-Acetaminophen 5-325) 1 Each Tablet, 1 Tab Oral 2014-01-21 00:00:00 No 1 Four Times Daily [facility] Aspirin (Aspir-Low) 81 Mg Tablet., 81 Mg Oral Aspiri n (Aspir-Low) 81 Mg Tablet., 81 Mg Oral 2013-01-31 00:00:00 No 81 Da giorgio [facility] Procedures Procedure Date / Time Performed Performing Clinician [facility] X-ray of chest, two views 2019-01-27 00:00:00 ALLYSON WHITEHEAD CH I [facility] Plan of Care Planned Activity Planned Date Details Comments Source Future Scheduled Test 2020-01-26 00:00:00 INFLUENZA VACCINE [code = INFLUENZA VACCINE] [facility] Future Scheduled Test 1996 00:00:00 65+ PNEUMOCOCCAL V ACCINE (1 of 2 - PCV13) [code = 65+ PNEUMOCOCCAL VACCINE (1 of 2 - PCV13)] [facility] Scheduled Test 1981 00:00:00 SHINGLES VACCINES (#1) [code = SHINGLES VACCINES (#1)] [facility] Encounters Start Date/Time End Date/Time Encounter Type Admission Type [facility] Care Department Encounter ID Source 2019-07-23 12:24:00 2019-07-25 18:28:00 Discharged Inpatient (obs) 1 KULWINDER AMBROSE [facility] [id number] [facility] 2019-02-09 14:57:00 2019-02-09 14:57:00 Registered Clinic [facility] [id number] [facility] 2019-01-27 12:33:00 2019-01-27 20:29:00 Departed Emergency Room 1 ALLYSON MITCHELL [facility] [id number] [facility] 2018-08-28 17:39:00 2018-08-30 18:32:00 Discharged Inpatient 1 MONICA BRENNER [facility] [id number] [facility] 2018-07-09 10:15:00 2018-07-09 12:42:00 Departed Emergency Room 1 MONICA BRENNER [facility] [id number] [facility] 2017-07-29 20:15:00 2017-08-01 18:44:[address] ER A[address] VARGAS [facility] [id number] [facility] 2017-05-22 13:39:00 2017-05-22 17:15:00 Departed Emergency Room ER JULIO COE [facility] [id number] [facility] 2017-03-29 10:52:00 2017-04-26 23:59:00 Discharged Recurring [facility] [id number] [facility] 2017-03-01 13:05:00 2017-03-26 23:59:00 Discharged Recurring [facility] [id number] [facility] 2017-02-17 10:46:00 2017-02-24 23:59:00 Discharged Recurring [facility] [id number] [facility] 2017-02-03 16:58:00 2017-02-04 10:36:00 Discharged Inpatient (obs) [facility] [id number] [facility] 2017-01-19 05:59:00 2017-01-19 05:59:00 Registered Surgical Day Care [facility] [id number] [facility] Results Test Description Test Time Test Comments Results Result Comments Source RETROGRADE PYELOGRAM 2019-11-14 12:41:00 [place] [address] Patient Name: JARAD SHERMAN MR #: [id number] : 1930 Age/Sex: 89/M Req #: [id number] Adm Physician: KULWINDER AMBROSE MD Ordered by: ASHOK PURI MD Report #: [id number] Location: PACU V Room/Bed: [facility]- Procedure: DX/RETROGRADE PYELOGRAM Exam Date: 11/14/19 Exam Time: 0817 REPORT STATUS: Signed OR Fluoroscopy: IMPRESSION: Fluoroscopy service provided in the OR. Interpretation not requested. Signed by: Derrick Mckenna MD on 11/14/2019 12:41 PM Dictated By: DERRICK MCKENNA MD [address] scribed By: SIXTO on 11/14/19 1241 COPY TO: ASHOK PURI MD CHEST 2 VIEWS 2019-11-09 16:21:00 [place] [address] Patient Name: JARAD SHERMAN MR #: [id number] : 1930 Age/Sex: 89/M Req #: [id number] Adm Physician: Ordered by: ASHOK PURI MD Report #: [id number] Location: OR Room/Bed: Procedure: DX/CHEST 2 VIEWS Exam Date: 11/09/19 Exam [...] Item Creatine Kinase MB (test code = 12858-1) 1.20 0-5.0 [facility]roponin [id number] 06:12:00* Test Item Value Reference Range Interpretation Comments Troponin I (test code = RME4866) 0.019 0-0.300 [facility] DallasCreatine Iuryke8464-98-24 06:09:00* Test Item Value Reference Range Interpretation Comments Creatine Kinase (test code = 2157-6) 219 30-200 [facility] Gsjsa0130[facility]78-94 05:44:00* Test Item Value Reference Range Interpretation Comments Sodium Level (test code = 2951-2) 130 136-145 [facility] DallasPotassium Ljmoj1709-60-14 05:44:00* Test Item Value Reference Range Interpretation Comments Potassium Level (test code = 2823-3) 3.8 3.5-5.1 [facility] DallasChloride Qclwh3986-69-09 05:44:00* Test Item Value Reference Range Interpretation Comments Chloride Level (test code = 2075-0) 98 98-107 [facility] DallasCarbon Dioxide Qkynd3211-53-05 05:44:00* Test Item Value Reference Range Interpretation Comments Carbon Dioxide Level (test code = 2028-9) 21 22-29 [facility] DallasAnion Ydy9751-76-14 05:44:00* Test Item Value Reference Range Interpretation Comments Anion Gap (test code = 37904-9) 14.8 8-16 [facility] DallasBlood Urea Kkgcxyfr7135-62-56 05:44:00* Test Item Value Reference Range Interpretation Comments Blood Urea Nitrogen (test code = 3094-0) 10 7- [facility] DallasCreatinine2020-01-28 05:44:00* Test Item Value Reference Range Interpretation Comments Creatinine (test code = 2160-0) 0.69 0.72-1.25 [facility] DallasBUN/Creatinine Eaout6599-59-60 05:44:00* Test Item Value Reference Range Interpretation Comments BUN/Creatinine Ratio (test code = 3097-3) 14 6-25 [facility] DallasEstimat Glomerular Filtration Rate 2019-07-24 05:44:00* Test Item Value Reference Range Interpretation Comments Estimat Glomerular Filtration Rate (test code = 435277039) > 60 >60 Ranges were taken from the National Kidney Disease Education Program and the [facility] literature.Reference ranges:60 or greater: Onffop44-22 ( for 3 consecutive months): Chronic kidney disease 15 or less: Kidney failureBaylor Scott & White Heart and Vascular Hospital – DallasGlucose Djrqh5614-00-12 05:44:00* Test Item Value Reference Range Interpretation Comments Glucose Level (test code = KGU1851) 76 74-118 [facility] DallasCalcium Rkupa2085-81-95 05:44:00* Test Item Value Reference Range Interpretation Comments Calcium Level (test code = 84779-9) 8.1 8.4-10.2 [facility] DallasCHEST SINGLE (PORTABLE)2019-07-24 05:38:00 [facility] [address] [place] [address] Patient Name: JARAD SHERMAN MR #: [id number] : 1930 Age/Sex: 89/M Req #: [id number] Adm Physician: KULWINDER AMBROSE MD Ordered by: NATHANIEL PINZON NP Report #: [id number] Location: MED/SURG2 Room/Bed: 214 Procedure: [id number] DX/CHEST SINGLE (PORTABLE) Exam Date: 07/24/19 Exam Time: 0505 REPORT STATUS: Signed EXAMINATION: CHEST SINGLE (PORTABLE) COMPARISON: Chest x-ray 07/23/2019 INDICATION: WEAKNESS [id number] DISCUSSION: Frontal view of the chest obtained [...] TO: NATHANIEL BARGER ACE, NP White Blood Qrkfb5924-89-58 05:28:00* Test Item Value Reference Range Interpretation Comments White Blood Count (test code = 6690-2) 8.54 4.8-10.8 [facility] DallasRed Blood Uvypx0896-84-37 05:28:00* Test Item Value Reference Range Interpretation Comments Red Blood Count (test code = 789-8) 4.28 4.3-5.7 [facility] DallasHemoglobin2020-01-28 05:28:00* Test Item Value Reference Range Interpretation Comments Hemoglobin (test code = 81755-3) 13.3 14.0-18.0 [facility] DallasHematocrit2020-01-28 05:28:00* Test Item Value Reference Range Interpretation Comments Hematocrit (test code = 4544-3) 40.1 38.2-49.6 [facility] DallasMean Corpuscular Kasxhu2497-02-68 05:28:00* Test Item Value Reference Range Interpretation Comments Mean Corpuscular Volume (test code = 787-2) 93.7 81-99 [facility] DallasMean Corpuscular Nytueqmwnr7909-29-06 05:28:00* Test Item Value Reference Range Interpretation Comments Mean Corpuscular Hemoglobin (test code = 785-6) 31.1 28-32 [facility] DallasMean Corpuscular Hemoglobin Concent 2019-07-24 05:28:00* Test Item Value Reference Range Interpretation Comments Mean Corpuscular Hemoglobin Concent (test code = 786-4) 33.2 31-35 [facility] DallasRed Cell Distribution Gnati3258-47-64 05:28:00* Test Item Value Reference Range Interpretation Comments Red Cell Distribution Width (test code = 45289-0) 14.1 11.7 -14.4 [facility] DallasPlatelet Yhfdi8137-39-06 05:28:00* Test Item Value Reference Range Interpretation Comments Platelet Count (test code = 777-3) 170 140-360 [facility] DallasNeutrophils (%) (Auto)2019-07-24 05:28:00 * Test Item Value Reference Range Interpretation Comments Neutrophils (%) (Auto) (test code = 82928-2) 67.7 38.7-80.0 [facility] DallasLymphocytes (%) (Auto)2019-07-24 05:28:00 * Test Item Value Reference Range Interpretation Comments Lymphocytes (%) (Auto) (test code = 736-9) 18.5 18.0-39.1 [facility] DallasMonocytes (%) (Auto)2019-07-24 05:28:00* Test Item Value Reference Range Interpretation Comments Monocytes (%) (Auto) (test code = 5905-5) 12.5 4.4-11.3 [facility] DallasEosinophils (%) (Auto)2019-07-24 05:28:00 * Test Item Value Reference Range Interpretation Comments Eosinophils (%) (Auto) (test code = 713-8) 0.2 0.0-6.0 [facility] DallasBasophils (%) (Auto)2019-07-24 05:28:00* Test Item Value Reference Range Interpretation Comments Basophils (%) (Auto) (test code = 706-2) 0.4 0.0-1.0 [facility] DallasIM GRANULOCYTES %2019-07-24 05:28:00* Test Item Value Reference Range Interpretation Comments IM GRANULOCYTES % (test code = IM GRANULOCYTES %) 0.7 0.0- 1.0 [facility] DallasNeutrophils # (Auto)2019-07-24 05:28:00* Test Item Value Reference Range Interpretation Comments Neutrophils # (Auto) (test code = 751-8) 5.8 2.1-6.9 [facility] DallasLymphocytes # (Auto)2019-07-24 05:28:00* Test Item Value Reference Range Interpretation Comments Lymphocytes # (Auto) (test code = 88706-2) 1.6 1.0-3.2 [facility] DallasMonocytes # (Auto)2019-07-24 05:28:00* Test Item Value Reference Range Interpretation Comments Monocytes # (Auto) (test code = 742-7) 1.1 0.2-0.8 [facility] DallasEosinophils # (Auto)2019-07-24 05:28:00* Test Item Value Reference Range Interpretation Comments Eosinophils # (Auto) (test code = 711-2) 0.0 0.0-0.4 [facility] DallasBasophils # (Auto)2019-07-24 05:28:00* Test Item Value Reference Range Interpretation Comments Basophils # (Auto) (test code = 704-7) 0.0 0.0-0.1 [facility] DallasAbsolute Immature Granulocyte (auto 2019-07-24 05:28:00* Test Item Value Reference Range Interpretation Comments Absolute Immature Granulocyte (auto (jose antonio t code = Absolute Immature Granulocyte (auto) 0.06 0-0.1 [facility] DallasUrine UVI1013-66-07 11:53:00* Test Item Value Reference Range Interpretation Comments Urine WBC (test code = 5821-4) 6-10 0-5 [facility] DallasUrine [id number] 11:53:00* Test Item Value Reference Range Interpretation Comments Urine RBC (test code = 49697-6) 21-50 0-5 [facility] DallasUrine Iaedmiky9798-16-74 11:53:00* Test Item Value Reference Range Interpretation Comments Urine Bacteria (test code = 33428-5) MODERATE NONE [facility] DallasUrine Epithelial Phetr1077-91-18 11:53:00 * Test Item Value Reference Range Interpretation Comments Urine Epithelial Cells (test code = 99360-0) MODERATE NONE [facility] DallasUrine Yppru8038-76-24 11:44:00* Test Item Value Reference Range Interpretation Comments Urine Color (test code = 5778-6) YELLOW YELLOW [facility] DallasUrine Xajuuro4621-22-31 11:44:00* Test Item Value Reference Range Interpretation Comments Urine Clarity (test code = 02716-5) CLEAR CLEAR [facility] DallasUrine Specific Puyzmqo2615-58-84 11:44:00 * Test Item Value Reference Range Interpretation Comments Urine Specific Gilson (test code = 5811-5) 1.025 1.010-1.02 5 [facility] DallasUrine [id number] 11:44:00* Test Item Value Reference Range Interpretation Comments Urine pH (test code = 97365-3) 7.5 5-7 [facility] DallasUrine Leukocyte Uimykqza0048-03-60 11:44:00* Test Item Value Reference Range Interpretation Comments Urine Leukocyte Esterase (test code = 5799-2) TRACE NEGATIVE [facility] DallasUrine Pawnvsm8576-94-48 11:44:00* Test Item Value Reference Range Interpretation Comments Urine Nitrite (test code = 66163-0) NEGATIVE NEGATIVE [facility] DallasUrine Oawmnio7336-85-66 11:44:00* Test Item Value Reference Range Interpretation Comments Urine Protein (test code = 5804-0) NEGATIVE NEGATIVE [facility] DallasUrine Glucose (UA)2019-07-23 11:44:00* Test Item Value Reference Range Interpretation Comments Urine Glucose (UA) (test code = 2349-9) NEGATIVE NEGATIVE [facility] DallasUrine Lkgkbwd4735-98-45 11:44:00* Test Item Value Reference Range Interpretation Comments Urine Ketones (test code = 96523-2) 1+ NEGATIVE [facility] DallasUrine Udcbecbaizkk0625-30-89 11:44:00* Test Item Value Reference Range Interpretation Comments Urine Urobilinogen (test code = 17208-3) 0.2 0.2-1 [facility] DallasUrine Otclmaqky8435-39-59 11:44:00* Test Item Value Reference Range Interpretation Comments Urine Bilirubin (test code = 1978-6) NEGATIVE NEGATIVE [facility] DallasUrine Zrxfy3952-17-05 11:44:00* Test Item Value Reference Range Interpretation Comments Urine Blood (test code = 68455-9) 1+ NEGATIVE [facility] DallasCHEST SINGLE (PORTABLE)2019-07-23 11:21:00 [facility] [address] [place] [address] Patient Name: JARAD SHERMAN MR #: [id number] : 1930 Age/Sex: 89/M Req #: [id number] Adm Physician: Ordered by: NATHANIEL PINZON NP Report #: [id number] Location: ER Room/Bed: Procedure: [id number] DX/CHEST SINGLE (PORTABLE) Exam Date: 07/23/19 Exam [...] on 07/23/19 1124 COPY TO: NATHANIEL PINZON NP Influenza Virus Types A,B Jdxmjmo1644-22-69 11:20:00* Test Item Value Reference Range Interpretation Comments Influenza Virus Types A,B Antigen (test code = 41799-4) POSITIVE FLU A NEGATIVE Results called to MARCELINO CHAVEZ at 1118 on 07/23/19 by Angela Ayoub. RB [place].Resu lts called to JAVI MILLER in infection control at 1118 on 07/23/19 by Angela case.[facility] DallasProthrombin Xyqi2926-54-11 11:08:00 * Test Item Value Reference Range Interpretation Comments Prothrombin Time (test code = 5902-2) 13.1 11.9-14.5 [facility] DallasProthromb Time International Ratio 2019-07-23 11:08:00* Test Item Value Reference Range Interpretation Comments Prothromb Time International Ratio (test code = 6301-6) 0.94 Oral Anticoagulant Therapy INR Values:1. Low Intensity Therapy 1.5 - 2.02 . Moderate Intensity Therapy 2.0 - 3.03. High Intensity Therapy(1) 2.5 - 3. 54. High Intensity Therapy(2) 3.0 - 4.05. Panic Value INR > 5.0 [facility] DallasActivated Partial Thromboplast Time 2019-07-23 11:08:00* Test Item Value Reference Range Interpretation Comments Activated Partial Thromboplast Time (test code = 17955-7) 32.4 23.8-35.5 [facility] DallasTotal Kupqwxhmr9107-76-03 11:08:00* Test Item Value Reference Range Interpretation Comments Total Bilirubin (test code = 1975-2) 0.8 0.2-1.2 [facility] DallasAspartate Amino Transf (AST/SGOT) 2019-07-23 11:08:00* Test Item Value Reference Range Interpretation Comments Aspartate Amino Transf (AST/SGOT) (test code = Aspartate Amino Transf (AST/SGOT)) 24 5-34 [facility] DallasAlanine Aminotransferase (ALT/SGPT) 2019-07-23 11:08:00* Test Item Value Reference Range Interpretation Comments Alanine Aminotransferase (ALT/SGPT) (test code = 1742-6) 19 0-55 [facility] DallasTotal Olgpdza9770-32-40 11:08:00* Test Item Value Reference Range Interpretation Comments Total Protein (test code = 2885-2) 6.7 6.5-8.1 [facility] 11:08:00* Test Item Value Reference Range Interpretation Comments Albumin (test code = 1751-7) 3.6 3.5-5.0 [facility]2020-01-27 11:08:00* Test Item Value Reference Range Interpretation Comments Globulin (test code = 98283-5) 3.1 2.3-3.5 [facility]/Globulin [id number] 11:08:00 * Test Item Value Reference Range Interpretation Comments Albumin/Globulin Ratio (test code = 1759-0) 1.2 0.8-2.0 [facility] DallasAlkaline Ynlfcugoykd5028-97-15 11:08:00* Test Item Value Reference Range Interpretation Comments Alkaline Phosphatase (test code = 6768-6) 66 40-150 [facility] DallasCHEST 2 [id number] 14:40:00 [facility] [address] [facility] [place] [address] Patient Name: JARAD SHERMAN MR #: [id number] : 1930 Age/Sex: 88/M Req #: [id number] Adm Physician: Ordered by: ALLYSON MITCHELL MD Report #: [id number] Location: ER Room/Bed: Procedure: [id number] DX/CHEST 2 VIEWS Exam Date: 01/27/19 Exam [...] 2:42 PM Dictated By: JONATHAN REMY MD 1442 Transcribed By: SIXTO on 01/27/19 1442 COPY TO: ALLYSON MITCHELL MD CT ABDOMEN/PELVIS [id number] 14:27:00 [facility] [address] [place] [id number] Patient Name: JARAD SHERMAN MR #: [id number] : 1930 Age/Sex: 88/M Req #: [id number] Adm Physician: Ordered by: KENNY SUMMERS CONVEYOR BELT OPERATOR Report #: [id number] Location: Room/Bed: Procedure: 0304-[address]/CT ABDOMEN/PELVIS W [...] SP LUMBAR, COMPLETE MIN 4VW 2018-07-09 11:08:00 [place] [address] Patient Name: JARAD SHERMAN MR #: [id number] : 1930 Age/Sex: 87/M Req #: [id number] Adm Physician: Ordered by: JOHN VALDEZ NP Report #: [id number] Location: ER Room/Bed: Procedure: [id number] DX/SP LUMBAR, COMPLETE MIN 4VW Exam Date: [...] on 07/09/18 1111 COPY TO: JOHN VALDEZ NP HIP LEFT 2-3 VW (+/- PELVIS)2018-07-09 11:02:00 [place] [address] Patient Name: JARAD SHERMAN MR #: [id number] : [birth year] Age/Sex: 87/M Req #: [id number] Adm Physician: Ordered by: JOHN VALDEZ NP Report #: [id number] Location: ER Room/Bed: Procedure: [id number] DX/HIP LEFT 2-3 VW (+/- PELVIS) Exam [...] 11:08 AM Dictated By: SOBIA BROWN MD 07 T ranscribed By: SIXTO on 07/09/181107 COPY TO: JOHN VALDEZ CONVEYOR BELT OPERATOR CT ABDOMEN/PELVIS W [place] [address] Patient Name: JARAD SHERMAN MR #: [id number] : 1930 Age/Sex: 87/M Req #: [id number] Adm Physician: Ordered by: SHERIDAN ARELLANO Report #: [id number] Location: ER Room/Bed: Procedure: 1363-8305 CT/CT ABDOMEN/PELVIS W Exam Date: 07/29/17 Exam [...] and sagittal multiplanar reformations were obtained. COMPARISON: [facility], CT, CT ABDOMEN/PELVIS W, 03/22/2014, 18:53. INDICATI [...] Signed By: JESUS BROWN MD on 07/29/17 1615 Transcribed By: ROYA on 07/29/17 1615 COPY TO: SHERIDAN ARELLANO [place] [address] Patient Name: JARAD SHERMAN MR #: [id number] : 1930 Age/Sex: 86/M Req #: [id number] Adm Physician: Ordered by: JULIO COE MD Report #: [id number] Location: ER Room/ Bed: Procedure: [id number] DX/FOOT RIGHT COMPLETE Exa m Date: 05/22/17 Exam Time: 1445 REPORT STATUS: Signed Exam: Right foot 3 views History: Pain Comparison: Non e. Findings: No fracture or malalignment. Joint spaces preserved. Plantar calcaneal spurs. Impression: No acute osseous abnormality Plantar calcaneal spurs. Signed by: Dr. Jonathan Remy M.D. on 05/22/2017 3:04 PM Dictated By: JONATHAN REMY MD Transcribed By: SIXTO on 05/22/171503 COPY T O: JULIO COE MD
[2019-11-15] MEDS: TAMSULOSIN HCL 0.4 MG CAP PO SCH ×2 (09:49→17:03)
--- NOTE | 2019-11-15 10:28 | NUR ---
Pt unavailable at this time. Pt on phone. I will follow up as able. [facility] O: [phone]
[2019-11-15] MEDS ORDERED: ONDANSETRON HCL 4 MG ORAL DISINTEGRATING TAB PO PRN (17:30)
[2019-11-15] MEDS ORDERED: BISACODYL 5 MG TAB EC PO ONE (23:15)
[2019-11-16] VITALS (8 sets, daily range): BP systolic 124–165; BP diastolic 69–90
[2019-11-16] MEDS: BISACODYL 5 MG TAB EC PO SCH ×3 (05:26→18:00)
[2019-11-16 05:29] LABS: BASOPHILS % 0.3 % (0.0-1.0); EOSINOPHILS % 0.1 % (0.0-6.0); HEMATOCRIT 42.6 % (38.2-49.6); LYMPHOCYTES # (AUTO) 2.3 (1.0-3.2); LYMPHOCYTES % 19.1 % (18.0-39.1); MEAN CORPUSCULAR HGB CONC 32.9 g/dL (31-35); MEAN CORPUSCULAR VOLUME 94.5 fL (81-99); MONOCYTES # (AUTO) 1.3 (0.2-0.8); MONOCYTES % 10.8 % (4.4-11.3); NEUTROPHILS # (AUTO) 8.4 (2.1-6.9); NEUTROPHILS % 68.9 % (38.7-80.0); PLATELET COUNT 209 x10e3/uL (140-360); RED BLOOD COUNT 4.51 x10e6/uL (4.3-5.7); RED CELL DISTRIBUTION WIDTH 14.5 % (11.7-14.4)
[2019-11-16 05:59] LABS: ANION GAP 12.7 mmol/L (8-16); BLOOD UREA NITROGEN 11 mg/dL (7-26); BUN/CREATININE RATIO 15 (6-25); CALCIUM 8.4 mg/dL (8.4-10.2); CARBON DIOXIDE 21 mmol/L (22-29); CHLORIDE 106 mmol/L (98-107); CREATININE, SERUM 0.73 mg/dL (0.72-1.25); EST GLOMERULAR FILTRATION RATE > 60 ML/MIN (60-); GLUCOSE 114 mg/dL (74-118); POTASSIUM 3.7 mmol/L (3.5-5.1); SODIUM 136 mmol/L (136-145)
[2019-11-16] MEDS: CEFEPIME 1GM/NS 0.9% 50 ML 50 ML IV SCH ×2 (06:12→18:30)
[2019-11-16] MEDS: TAMSULOSIN HCL 0.4 MG CAP PO SCH ×3 (09:00→22:30)
[2019-11-16] MEDS: PHENAZOPYRIDINE HCL 100 MG TAB PO SCH ×3 (09:00→18:00)
[2019-11-16] MEDS: DOCUSATE SODIUM 100 MG CAP PO SCH ×3 (09:00→22:30)
[2019-11-16] MEDS: D5.45%NS/KCL 20MEQ 1,000 ML IV SCH (10:24)
--- NOTE | 2019-11-16 10:25 | NUR ---
SPOKE WITH MD AMBROSE, MADE AWARE OF NAUSEA AND CRAMPING FROM DULCOLAX, ORDERS NOTED TO RESTART IV TYLENOL
[2019-11-16] MEDS ORDERED: ACETAMINOPHEN 1000 MG/100 ML IV PRN (10:30)
[2019-11-16] MEDS: TRAMADOL HCL 50 MG TAB PO PRN (11:45)
[2019-11-16] MEDS ORDERED: ONDANSETRON HCL INJ 2MG/ML 2ML 2 MG/ML VIAL IV PRN (12:15)
[2019-11-16] MEDS ORDERED: PROMETHAZINE 12.5MG/ NACL 0.9% 12.5 MG/50 ML BAG IV PRN (14:15)
--- NOTE | 2019-11-16 18:26 | NUR ---
PT AWAKENS EASILY TO VOICE , STATES NAUSEA BETTER, BUT "SLEEPY", CALL LIGHT WITHIN REACH
--- NOTE | 2019-11-16 19:34 | NUR ---
Received pt in bed asleep, easily aroused. Denies pain/discomfort/nausea at this time. No s/sx of distress. Personal items and call light within reach. CBI noted with no difficulties. IVF infusing no diff. Will cont to mon.
[2019-11-17 00:23] VITALS: BP 103/67
[2019-11-17 04:00] VITALS: BP 98/64
[2019-11-17] MEDS: D5.45%NS/KCL 20MEQ 1,000 ML IV SCH ×2 (05:03→12:00)
[2019-11-17] MEDS: CEFEPIME 1GM/NS 0.9% 50 ML 50 ML IV SCH (05:49)
[2019-11-17 05:52] LABS: BASOPHILS % 0.3 % (0.0-1.0); HEMATOCRIT 39.5 % (38.2-49.6); HEMOGLOBIN 13.1 g/dL (14.0-18.0); LYMPHOCYTES # (AUTO) 1.9 (1.0-3.2); LYMPHOCYTES % 20.2 % (18.0-39.1); MEAN CORPUSCULAR HEMOGLOBIN 31.3 pg (28-32); MEAN CORPUSCULAR HGB CONC 33.2 g/dL (31-35); MEAN CORPUSCULAR VOLUME 94.3 fL (81-99); NEUTROPHILS # (AUTO) 6.2 (2.1-6.9); NEUTROPHILS % 67.4 % (38.7-80.0); PLATELET COUNT 204 x10e3/uL (140-360); RED BLOOD COUNT 4.19 x10e6/uL (4.3-5.7); RED CELL DISTRIBUTION WIDTH 14.5 % (11.7-14.4)
[2019-11-17 06:23] LABS: ANION GAP 11.6 mmol/L (8-16); BLOOD UREA NITROGEN 10 mg/dL (7-26); BUN/CREATININE RATIO 14 (6-25); CARBON DIOXIDE 21 mmol/L (22-29); CHLORIDE 105 mmol/L (98-107); EST GLOMERULAR FILTRATION RATE > 60 ML/MIN (60-); GLUCOSE 103 mg/dL (74-118); POTASSIUM 3.6 mmol/L (3.5-5.1); SODIUM 134 mmol/L (136-145)
[2019-11-17] MEDS ORDERED: BISACODYL 5 MG TAB EC PO PRN (06:30)
--- NOTE | 2019-11-17 07:52 | Progress Note ---
DATE: SUBJECTIVE: An 89-year-old gentleman, came in with status post TURP. The patient is doing good. Bladder irrigation is being undertaking at this time. The patient has no complaints, can be discharged as per Urology notes. The patient had some constipation issues yesterday, is feeling better. PHYSICAL EXAMINATION: GENERAL: The patient is alert and oriented x3. VITAL SIGNS: Temperature 98.7, afebrile, pulse 67, respirations of 18, blood pressure is 98/64, pulse ox 97% on room air. HEENT: Normocephalic, atraumatic. The patient is easily arousable, sleepy. CVS: S1 and S2 normal. Regular rhythm. LUNGS: Decreased air entry into all lung harris. Fine crackles present. ABDOMEN: Nontender, nondistended. E[place] to gravity present. EXTREMITIES: No clubbing, no cyanosis, no edema. LABORATORY VALUES: White count is being lowered. White count is 12.12 yesterday, hemoglobin of 14, hematocrit 42.6. Chemistry shows sodium 136, potassium of 3.7. BUN of 11, creatinine 0.73. Today's are pending. Serology, coronavirus PCR was negative. 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 ASSESSMENT: Mr. Ortega with status TURP. The patient can go home with leg bag, leukocytosis. Awaiting CBC today, urinary tract infection. Can send home on antibiotics as per Urology recommendation. DISPOSITION: Discharge today if okay with Urology. Further recommendation per course. We will continue to monitor the patient. MD JONNY NguyenJ/MODL /[id number]
[2019-11-17 08:21] VITALS: BP 122/72
[2019-11-17] MEDS: TAMSULOSIN HCL 0.4 MG CAP PO SCH (10:00)
[2019-11-17] MEDS: DOCUSATE SODIUM 100 MG CAP PO SCH (10:00)
[2019-11-17] MEDS: PHENAZOPYRIDINE HCL 100 MG TAB PO SCH ×2 (10:00→13:00)
[2019-11-17 10:19] VITALS: BP 122/72
[2019-11-17] MEDS ORDERED: ULTRAM50 MG PO (10:42)
[2019-11-17] MEDS ORDERED: LEVOFLOXACIN250 MG PO (10:42)
[2019-11-17] MEDS ORDERED: ZOFRAN4 MG PO (10:43)
[2019-11-17 11:42] VITALS: BP 120/66
--- NOTE | 2019-11-17 13:04 | NUR ---
DISCHARGE INSTRUCTIONS REVIEWED WITH PT, DEMONSTRATED HOW TO CHANGE FROM OVERNIGHT BAG TO LEG BAG, PT VERBALIZED UNDERSTANDING, PT AWAITING RIDE
== END 2019-11-17 13:25 | disposition home or self-care (01) | DRG 713 ==
LOC: OR 05:09 → PACU V 10:06 → MED/SURG 15:10
PROVIDERS: ADMIT Internal Medicine; ATTEND Internal Medicine
PROC: 0TBB8ZZ Excision of Bladder, Via Natural or Artificial Opening Endoscopic (ICD-10-PCS; 2019-11-14)
PROC: BT141ZZ Fluoroscopy of Kidneys, Ureters and Bladder using Low Osmolar Contrast (ICD-10-PCS; 2019-11-14)
PROC: 0TCB8ZZ Extirpation of Matter from Bladder, Via Natural or Artificial Opening Endoscopic (ICD-10-PCS; 2019-11-14)
PROC: 0VB08ZZ Excision of Prostate, Via Natural or Artificial Opening Endoscopic (ICD-10-PCS; principal; 2019-11-14 07:00)
PROC: 0T778DZ Dilation of Left Ureter with Intraluminal Device, Via Natural or Artificial Opening Endoscopic (ICD-10-PCS; 2019-11-14 07:00)
DX: N40.1 Benign prostatic hyperplasia with lower urinary tract symptoms (principal); N13.8 Other obstructive and reflux uropathy; N39.0 Urinary tract infection, site not specified; D09.0 Carcinoma in situ of bladder; R33.8 Other retention of urine; M19.90 Unspecified osteoarthritis, unspecified site; J44.9 Chronic obstructive pulmonary disease, unspecified; I10 Essential (primary) hypertension; Z82.49 Family history of ischemic heart disease and other diseases of the circulatory system; N21.0 Calculus in bladder; K59.00 Constipation, unspecified
CPT/HCPCS: 36415; 51700; 71046; 74420; 80048; 83735; 85025; 87635; 88300; 88305; 88307; 93005; 96361; C2617; J0692; J1100; J1580; J1940; J2001; J2175; J2270; J2405; J2550; J3010; J7030; Q0162

== ENCOUNTER → 2020-01-16 | Day surgery (SDC) | payer MEDICARE, BC, OTHER ==
[2020-01-11 14:48] LABS: BASOPHILS # (AUTO) 0.1 (0.0-0.1); BASOPHILS % 0.5 % (0.0-1.0); EOSINOPHILS # (AUTO) 0.2 (0.0-0.4); EOSINOPHILS % 1.6 % (0.0-6.0); HEMATOCRIT 41.4 % (38.2-49.6); HEMOGLOBIN 13.4 g/dL (14.0-18.0); LYMPHOCYTES # (AUTO) 2.7 (1.0-3.2); LYMPHOCYTES % 25.2 % (18.0-39.1); MEAN CORPUSCULAR HEMOGLOBIN 30.4 pg (28-32); MEAN CORPUSCULAR HGB CONC 32.4 g/dL (31-35); MEAN CORPUSCULAR VOLUME 93.9 fL (81-99); MONOCYTES % 9.6 % (4.4-11.3); NEUTROPHILS # (AUTO) 6.6 (2.1-6.9); NEUTROPHILS % 62.6 % (38.7-80.0); PLATELET COUNT 248 x10e3/uL (140-360); RED BLOOD COUNT 4.41 x10e6/uL (4.3-5.7); RED CELL DISTRIBUTION WIDTH 13.9 % (11.7-14.4)
[2020-01-11 15:07] LABS: ALANINE AMINOTRANSFERASE 13 IU/L (0-55); ALBUMIN 3.1 g/dL (3.5-5.0); ALKALINE PHOSPHATASE 68 IU/L (40-150); ANION GAP 9.8 mmol/L (8-16); BLOOD UREA NITROGEN 12 mg/dL (7-26); BUN/CREATININE RATIO 15 (6-25); CALCIUM 8.6 mg/dL (8.4-10.2); CARBON DIOXIDE 23 mmol/L (22-29); CHLORIDE 103 mmol/L (98-107); CREATININE, SERUM 0.79 mg/dL (0.72-1.25); EST GLOMERULAR FILTRATION RATE > 60 ML/MIN (60-); GLUCOSE 119 mg/dL (74-118); POTASSIUM 3.8 mmol/L (3.5-5.1); SODIUM 132 mmol/L (136-145)
[~2020-01-16] MED LIST changes: +ANTIBIOTIC28.4 GM PO; +B&O 60MG R/S 60 MG SUPP PR ONE; +CEFTRIAXONE SOD 1 GM/NS 50 ML 50 ML IV ONE; +EPHEDRINE SULFATE INJ 50 MG/ML VIAL ONE; +FENTANYL CITRATE/PF 100MCG/2 ML INJ ONE; +GENTAMICIN 80MG/NS 100 ML 100 ML IV ONE; +IOPAMIDOL 300MG/ML 50ML INFUS..BTL IV ONE; +LEVOFLOXACIN250 MG PO; +LIDOCAINE HCL 2% LOCAL INJ 5 ML SDV VIAL INJ ONE; +ONDANSETRON HCL INJ 2MG/ML 2ML 2 MG/ML VIAL ONE; +PROPOFOL IV EMULSION 10 MG/ML 20 ML VIAL ONE; +SEVOFLURANE INHAL SOLN 250 ML PEN BTL ONE; +antiobiotic PO
[2020-01-16 12:55] VITALS: BP 149/81
--- NOTE | 2020-01-28 12:03 | Operative Report ---
DATE OF PROCEDURE: 01/16/2020 SURGEON: Ty Gould MD PREOPERATIVE DIAGNOSES: 1. Bladder cancer. 2. Indwelling ureteral stent. POSTOPERATIVE DIAGNOSES: 1. Indwelling ureteral stents. 2. History of bladder cancer. 3. Prior filling defect requiring ureteroscopic evaluation. OPERATIONS PERFORMED: 1. Cystourethroscopy with directed bladder biopsies (separate procedure performed to evaluate the base of the prior bladder cancer). 2. Cystourethroscopy with complicated removal of left indwelling ureteral stent (separate procedure performed for the diagnosis of stent). 3. Left ureteroscopy (separate procedure performed to evaluate the filling defect). 4. Urological services with supervision and interpretation of ureteroscopy. 5. Interpretation of retrograde ureteropyelography. ANESTHESIA: General. COMPLICATIONS: None. CLINICAL SUMMARY: Patel Ortega is an 89-year-old man, who underwent transurethral resection of prostate; at that point in time, we discovered a bladder cancer, which were resected. We had to leave an indwelling ureteral stent because of the location of bladder cancer. The patient is brought to the operating room to evaluate for any residual cancer and remove his stent. He is aware of the risks of bleeding, infection, injury to adjacent structures, need for additional procedures and elected to proceed. OPERATIVE PROCEDURE IN DETAIL: Informed consent was verified. Patel Ortega was properly identified, taken to the operating room, placed on the cystoscopy table in supine position. Anesthesia was uneventfully begun. The patient was then carefully and gently repositioned in dorsal lithotomy position with all pressure points well padded. His genitalia were prepared and draped in usual sterile fashion. The cystoscope sheath with the visual obturator in place was atraumatically inserted into the patient's urethra was guided unremarkably urethra through some probably not significant stricture that was gently and easily passed into the patient's sphincteric region and into the patient's prostate bed, which was significant for being wide open status post transurethral resection, but now nowhere near at the re-epithelialized. We entered the patient's bladder. We identified trabeculations, but no suspicious lesions were found in the region of the prior tumor base was not fully healed. Cold cup biopsy forceps were then utilized to take out specimens in the region of the prior tumor. We then utilized a Bugbee electrode to fulgurate this region as well. A guidewire was then placed in the left ureter and guided to the level of the patient's kidney. The stent was then grasped completely, removed and discarded. Flexible ureteroscope was then brought up over the guidewire and guided at the level of the patient's kidney. Careful panendoscopy of the entire internal collecting system revealed no suspicion mucosal lesions, no tumors and no stones. There was a filling defect that proved to be nothing and may have been an air bubble. We also utilized a ureteral catheter to cannulate the right ureter and retrograde ureteral pyelograms were performed. Interpretation of retrograde ureteropyelography contrast was instilled in retrograde fashion bilaterally. The right side was unremarkable. There were no tumors no stones, and no diverticula. The left side exhibited some fullness, which may be from reflex of stent. Calluses were relatively sharp and delicate. Unobstructed drainage was observed fluoroscopically bilaterally. The patient's bladder was drained. Cystoscope was withdrawn. Belladonna and opium suppository were placed revealing a 15 g prostate that is smooth, nonfluctuant without any nodules. The patient was then uneventfully reversed from anesthesia and taken to recovery room in stable condition. There were no complications during the procedure. He tolerated the procedure well. The patient's bladder is heavily trabeculated and does have small diverticula. This might cause an overactive bladder symptoms now that we have removed his obstructing part of his prostate. MD AIDE Mayes/MODL /[id number]
== END | disposition home or self-care (01) ==
LOC: OR 08:50
PROVIDERS: ATTEND Urology
DX: C67.9 Malignant neoplasm of bladder, unspecified (principal); Z46.6 Encounter for fitting and adjustment of urinary device; N32.89 Other specified disorders of bladder; N32.3 Diverticulum of bladder; J84.10 Pulmonary fibrosis, unspecified; Z88.6 Allergy status to analgesic agent; Z01.812 Encounter for preprocedural laboratory examination; Z11.59 Encounter for screening for other viral diseases
CPT/HCPCS: 36415; 52214; 52351; 74420; 80053; 85025; 88305; 88342; C1758; C1769; J0696; J1580; J2001; J2405; J2704; J3010; Q9967; U0002

== ENCOUNTER 2020-02-24 11:58 | Emergency (ER) | payer MEDICARE, BC ==
[~2020-02-24] VITALS: Ht 177.8 cm; Wt 83.5 kg
[~2020-02-24 11:58] MED LIST changes: -B&O 60MG R/S 60 MG SUPP PR ONE; -CEFTRIAXONE SOD 1 GM/NS 50 ML 50 ML IV ONE; -EPHEDRINE SULFATE INJ 50 MG/ML VIAL ONE; -FENTANYL CITRATE/PF 100MCG/2 ML INJ ONE; -GENTAMICIN 80MG/NS 100 ML 100 ML IV ONE; -IOPAMIDOL 300MG/ML 50ML INFUS..BTL IV ONE; -LIDOCAINE HCL 2% LOCAL INJ 5 ML SDV VIAL INJ ONE; -ONDANSETRON HCL INJ 2MG/ML 2ML 2 MG/ML VIAL ONE; -PROPOFOL IV EMULSION 10 MG/ML 20 ML VIAL ONE; -SEVOFLURANE INHAL SOLN 250 ML PEN BTL ONE
[2020-02-24] MEDS ORDERED: CLONIDINE HCL 0.1 MG TAB PO ONE (12:30)
[2020-02-24] MEDS ORDERED: ACETAMIN/BUTALBITAL/CAFFEINE TAB PO ONE (12:30)
[2020-02-24] MEDS ORDERED: OFEV (12:32)
[2020-02-24] MEDS ORDERED: LISINOPRIL-HCT1 EACH (12:34)
--- OUTSIDE RECORDS SUMMARY | 2020-02-24 13:03 | XMS REPORT | Clinical Summary ---
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
--- OUTSIDE RECORDS SUMMARY | 2020-02-24 13:04 | XMS REPORT | Continuity of Care Document ---
Author Author [facility] t Organization [facility] Address [address] [place] [address] Phone Unavailable Care Team Providers Care Filament Maker Name Role Phone ARNOL ALMAGUER, MD MIRAMONTES PCP KULWINDER AMBROES Attphys Unavailable PAULA, S AMBICA Attphys Unavailable SWEET, A LAIRD Attphys Unavailable VARGAS, Tina TUE Attphys Unavailable HUSBY, T JULIO Attphys Unavailable KULWINDER AMBROSE Admphys Unavailable Payers Payer Name Policy Type Policy Number Effective Date Expiration Date [facility]00 [facility] Medicare A & B NA 1996 00:00:00 C [facility] Cdc Review Covid19 NA [facility] Problems Condition Name Condition Details Condition Category Status Onset Date Resolution Date Last Treatment Date Treating Clinician Comments Source Primary osteoarthritis of knees, bilateral Primary ost eoarthritis of knees, bilateral Disease Active 2018-10-24 00:00:00 Kyle Ponce DDD (degenerative disc disease), lumbar DDD (degenerative di sc disease), lumbar Disease Active 2018-10-24 00:00:00 Mauricio Ponce Diverticulitis of intestine Diverticulitis Problem Active [facility] Allergies, Adverse Reactions, Alerts Allergy Name Allergy Type Status Severity Reaction(s) Onset Date Inacti ve Date Treating Clinician Comments Source Codeine Propensity to adverse reactions to drug Active GI Intolerance 2018-10-24 00:00:00 nausea [place] Jelani odchristin Codeine Allergy to substance Active Mild Nausea 2018-08-28 00:00:00 [facility] codeine DA Active U 2014-03-01 00:00:00 [facility] azithromycin DA Active U 2014-03-01 00:00:00 [facility] Social History Social Habit Start Date Stop Date Quantity Comments Source History SDOH Alcohol Std Drinks [place] Mandaeism History SDOH Alcohol Binge [place] [facility] Sex Assigned At Valentin wilkerson Mandaeism Alcohol intake 2018-10-24 00:00:00 2018-10-24 00:00:00 Current non-drinker of alcohol (finding) Martínez Mandaeism History SDOH Alcohol Frequency 2018-10-24 00:00:00 2018-10-24 00:00:0 0 1 Mauricio Mandaeism Smoking Status Start Date Stop Date Source Never smoker Mauricio yoder Medications Ordered Medication Name Filled Medication Name Start Date Stop Da te Current Medication? Ordering Clinician Indication Dosage Frequency Signature (SIG) Comments Components Source Hydrochlorothiazide Hydrochlorothiazide 2019-01-27 19:30:00 2019-10 00:00:00 No 12.5 Daily [facility] tamsulosin (FLOMAX) 0.4 mg capsule 2018-10-21 00:00:00 Yes TK 1 C PO QD AFTER 30 MINUTES AFTER SUPPER [place] [facility]ae[facility] SYMBICORT 80-4.5 mcg/actuation inhaler 2018-10-10 00:00:00 Yes INL 2 PFS PO BID Mauricio Ponce Alive Mens Gummy Alive Mens Gummy Yes 1 Daily [facility] Allergy Pill Allergy Pill Yes 160 Daily [facility] Budesonide/Formoterol Fumarate (Symbicor t 80-4.5 Mcg Inhaler) 10.2 Gm HFA.AER.AD Budesonide/Formoterol Fumarate (Symbicor t 80-4.5 Mcg Inhaler) 10.2 Gm HFA.AER.AD Yes Twice A Day [facility] Guaifenesin (Mucinex) 600 Mg TABLET.ER Guaifenesin (Mucinex) 600 Mg TABLET.ER Yes 600 Twice A Day [facility] Levofloxacin Levofloxacin Yes 250 Daily [facility] Ondansetron Hcl (Zofran*) 4 Mg TABLET Ondansetron Hcl (Zofran*) 4 M g TABLET Yes 4 Every 4 Hours as needed for Nausea [facility] Tamsulosin Hcl (Flomax*) 0.4 Mg CAP Tamsulosin Hcl (Flomax*) 0.4 Mg C AP Yes .4 Twice A Day [facility] Tramadol Hcl (Ultram) 50 Mg TABLET Tramadol Hcl (Ultram) 50 Mg TABLET Yes 50 Three Times A Day as needed for Mild Pain (1-3) Or Fever>100.8 [facility] Antiobiotic Antiobiotic 2019-11-17 00:00:00 No T wice A Day [facility] Bacitracin Zinc (Antibiotic) 28.4 Gm OINT...G. Bacitra galdino Zinc (Antibiotic) 28.4 Gm OINT...G. 2019-11-14 00:00:00 No Twice A Day [facility] Budesonide/Formoterol Fumarate (Symbicor t 160-4.5 Mcg Inhaler) 10.2 Gm HFA.AER.AD Budesonide/Formoterol Fumarate (Symbicor t 160-4.5 Mcg Inhaler) 10.2 Gm HFA.AER.AD 2019-07-23 00:00:00 No Daily [facility] Metronidazole (Flagyl) 250 Mg TABLET Metronidazole (Flagyl) 250 Mg TABLET 2019-07-23 00:00:00 No 500 Three Times A Day [facility] Ciprofloxacin Hcl (Cipro) 500 Mg TABLET Ciprofloxacin Hcl (C ipro) 500 Mg TABLET 2018-08-30 00:00:00 No 500 Twice A Day [facility] Tylenol Tylenol 2017-05-22 00:00:00 No 1000 [facility] Albuterol Sulfate (Proair Hfa Inhaler*) 8.5 Gm INH Alb uterol Sulfate (Proair Hfa Inhaler*) 8.5 Gm INH 2015-04-08 00:00:00 No 2 Every 4 Hours as needed for Wheezing [facility] Hydrocodone Bit/Acetaminophen ([place] 5-325 Tablet) 1 E ach TABLET Hydrocodone Bit/Acetaminophen ([place] 5-325 Tablet) 1 Each TABLET 2015-04-08 00: 00:00 No 1 Every 6 Hours [facility] Naproxen Sodium (Aleve) 220 Mg CAPSULE Naproxen Sodium (Aleve) 2 20 Mg CAPSULE 2015-04-08 00:00:00 No 2 Every 6 Hours for Pa in [facility] Ondansetron Hcl (Zofran*) 4 Mg TABLET Ondansetron Hcl (Zofran*) 4 Mg TABLET 2015-04-08 00:00:00 No 4 Every 6 Hours as nee ded for Nausea [facility] Pantoprazole Sodium (Protonix Iv) 40 Mg VIAL Pantopraz ole Sodium (Protonix Iv) 40 Mg VIAL 2015-04-08 00:00:00 No 40 Twice A Day [facility] Tramadol Hcl (Ultram) 50 Mg TABLET Tramadol Hcl (Ultram) 50 Mg T ABLET 2015-04-08 00:00:00 No 50 Every 6 Hours as nee ded for Pain [facility] Hydrocodone Bit/Acetaminophen (Hydrocodon-Acetaminophe n 5-325) 1 Each TABLET Hydrocodone Bit/Acetaminophen (Hydrocodon-Acetaminophen 5-325) 1 Each TABLET 2014-01-21 00:00:00 No 1 Four Times Daily [facility] Aspirin (Aspir-Low) 81 Mg TABLET. Aspirin (Aspir-Low) 81 Mg TA BLET. 2013-01-31 00:00:00 No 81 Daily [facility] Vital Signs Vital Name Observation Time Observation Value Comments Source Body Temperature 2019-11-17 11:42:00 98.0 [degF] [facility] Weight 2019-11-15 05:52:00 184.38 [lb_av] [facility] BMI (Body Mass Index) 2019-11-15 05:52:00 25.0 kg/m2 [facility] Procedures Procedure Date / Time Performed Performing Clinician [facility] e X-ray of chest, two views 2019-11-09 00:00:00 CH I [facility] X-ray of chest, two views 2019-01-27 00:00:00 ALLYSON DEAN [facility] Plan of Care Planned Activity Planned Date Details Comments Source Future Scheduled Test 2020-03-27 00:00:00 INFLUENZA VACCINE [code = INFLUENZA VACCINE] [facility] Future Scheduled Test 1996 00:00:00 65+ PNEUMOCOCCAL V ACCINE (1 of 2 - PCV13) [code = 65+ PNEUMOCOCCAL VACCINE (1 of 2 - PCV13)] [facility] Future Scheduled Test 1981 00:00:00 SHINGLES VACCINES (#1) [code = SHINGLES VACCINES (#1)] [facility] Instructions TURP [facility] Encounters Start Date/Time End Date/Time Encounter Type Admission Type Attendi [facility] Care Department Encounter ID Source 2019-11-14 10:06:00 2019-11-17 13:25:00 Discharged Inpatient 3 KULWINDER AMBROSE [facility] [id number] [facility] 2019-10-19 23:15:00 2019-10-20 03:20:00 Departed Emergency Room [facility] [id number] [facility] 2019-07-23 11:24:00 2019-07-25 17:28:00 Discharged Inpatient (obs) 1 KULWINDER AMBROSE [facility] [id number] [facility] 2019-02-09 14:57:00 2019-02-09 14:57:00 Registered Clinic [facility] [id number] [facility] 2019-01-27 12:33:00 2019-01-27 20:29:00 Departed Emergency Room 1 ALLYSON MITCHELL [facility] [id number] [facility] 2018-08-28 17:39:00 2018-08-30 18:32:00 Discharged Inpatient 1 HUBERT BRENNERNICK [facility] [id number] [facility] 2018-07-09 10:15:00 2018-07-09 12:42:00 Departed Emergency Room 1 MONICA BRENNER [facility] [id number] [facility] 2017-07-29 20:15:00 2017-08-01 18:44:[address] VARGAS [facility] [id number] [facility] 2017-05-22 13:39:00 2017-05-22 17:15:00 Departed Emergency Room ER JULIO COE [facility] [id number] [facility] 2017-03-29 10:52:00 2017-04-26 23:59:00 Discharged Recurring [facility] [id number] [facility] 2017-03-01 13:05:00 2017-03-26 23:59:00 Discharged Recurring [facility] [id number] [facility] 2017-02-17 10:46:00 2017-02-24 23:59:00 Discharged Recurring [facility] [id number] [facility] 2017-02-03 16:58:00 2017-02-04 10:36:00 Discharged Inpatient (obs) [facility] [id number] [facility] 2017-01-19 05:59:00 2017-01-19 05:59:00 Registered Surgical Day Care [facility] [id number] [facility] Results Test Description Test Time Test Comments Results Result Comments Source Blood leukocytes automated count (number/volume) 2019-11-17 05:15:00 Test Item White Blood Count (test code = 6690-2) 9.20 4.8-10.8 [facility] erythrocytes automated count (number/volume)2019-11-17 05:15:00* Test Item Value Reference Range Interpretation Comments Red Blood Count (test code = 789-8) 4.19 4.3-5.7 [facility] hemoglobin measurement (moles/volume)2019-11-17 05:15:00* Test Item Value Reference Range Interpretation Comments Hemoglobin (test code = 60861-5) 13.1 14.0-18.0 [facility] DallasAutomated blood hematocrit (volume fraction)2019-11-17 05:15:00* Test Item Value Reference Range Interpretation Comments Hematocrit (test code = 4544-3) 39.5 38.2-49.6 [facility] DallasAutomated erythrocyte mean corpuscular rghgkh9835-88-12 05:15:00* Test Item Value Reference Range Interpretation Comments Mean Corpuscular Volume (test code = 787-2) 94.3 81-99 [facility] DallasAutom[facility] erythrocyte mean corpuscular hemoglobin (mass per erythrocyte)2019-11-17 05:15:00* Test Item Value Reference Range Interpretation Comments Mean Corpuscular Hemoglobin (test code = 785-6) 31.3 28-32 [facility] DallasAutomated erythrocyte mean corpuscular hemoglobin concentration measurement (mass/volume)2019-11-17 05:15:00* Test Item Value Reference Range Interpretation Comments Mean Corpuscular Hemoglobin Concent (test code = 786-4) 33.2 31-35 [facility] DallasRDW MrgXp-[id number] 05:15:00* Test Item Value Reference Range Interpretation Comments Red Cell Distribution Width (test code = 05513-0) 14.5 11.7 -14.4 [facility] DallasAutomated blood platelet count (count/volume)2019-11-17 05:15:00* Test Item Value Reference Range Interpretation Comments Platelet Count (test code = 777-3) 204 140-360 [facility] DallasAutomated blood segmented neutrophil count as percentage of total ldbnmkhugh9846-32-41 05:15:00* Test Item Value Reference Range Interpretation Comments Neutrophils (%) (Auto) (test code = 16016-7) 67.4 38.7-80.0 [facility] DallasAutomated blood lymphocyte count as percentage ot total qobvzhvksc9239-07-24 05:15:00* Test Item Value Reference Range Interpretation Comments Lymphocytes (%) (Auto) (test code = 736-9) 20.2 18.0-39.1 [facility] DallasAutomated blood monocyte count as percentage of total rfxnpeeeud0468-63-91 05:15:00* Test Item Value Reference Range Interpretation Comments Monocytes (%) (Auto) (test code = 5905-5) 11.0 4.4-11.3 [facility] DallasAutomated blood eosinophil count as percentage of total muccdbebcx2415-13-76 05:15:00* Test Item Value Reference Range Interpretation Comments Eosinophils (%) (Auto) (test code = 713-8) 0.0 0.0-6.0 [facility] Dallas[facility]ated blood basophil count as percentage of total mpwnkzcaym2132-96-58 05:15:00* Test Item Value Reference Range Interpretation Comments Basophils (%) (Auto) (test code = 706-2) 0.3 0.0-1.0 [facility] DallasFluoroscopic procedure less than one hour wdvacqgl5870-79-65 05:15:00* Test Item Value Reference Range Interpretation Comments IM GRANULOCYTES % (test code = IM GRANULOCYTES %) 1.1 0.0- 1.0 [facility] Dallas[facility] blood neutrophil count 2019-11-17 05:15:00* Test Item Value Reference Range Interpretation Comments Neutrophils # (Auto) (test code = 751-8) 6.2 2.1-6.9 [facility] DallasBlood lymphocytes count (number/volume) 2019-11-17 05:15:00* Test Item Value Reference Range Interpretation Comments Lymphocytes # (Auto) (test code = 97570-4) 1.9 1.0-3.2 [facility] DallasBlood monocytes automated count (number/volume)2019-11-17 05:15:00* Test Item Value Reference Range Interpretation Comments Monocytes # (Auto) (test code = 742-7) 1.0 0.2-0.8 [facility] Dallas[facility]ated blood eosinophil count 2019-11-17 05:15:00* Test Item Value Reference Range Interpretation Comments Eosinophils # (Auto) (test code = 711-2) 0.0 0.0-0.4 [facility] Dallas[facility]ated blood basophil count (count/volume)2019-11-17 05:15:00* Test Item Value Reference Range Interpretation Comments Basophils # (Auto) (test code = 704-7) 0.0 0.0-0.1 [facility] DallasFluoroscopic procedure less than one hour rdwgmfye1422-51-74 05:15:00* Test Item Value Reference Range Interpretation Comments Absolute Immature Granulocyte (auto (jose antonio t code = Absolute Immature Granulocyte (auto) 0.10 0-0.1 [facility] plasma sodium measurement (moles/volume)2019-11-17 05:15:00* Test Item Value Reference Range Interpretation Comments Sodium Level (test code = 2951-2) 134 136-145 [facility] plasma potassium measurement (moles/volume)2019-11-17 05:15:00* Test Item Value Reference Range Interpretation Comments Potassium Level (test code = 2823-3) 3.6 3.5-5.1 [facility] or plasma chloride measurement (moles/volume)2019-11-17 05:15:00* Test Item Value Reference Range Interpretation Comments Chloride Level (test code = 2075-0) 105 98-107 [facility] or plasma carbon dioxide, total measurement (moles/volume)2019-11-17 05:15:00* Test Item Value Reference Range Interpretation Comments Carbon Dioxide Level (test code = 2028-9) 21 22-29 [facility] or plasma anion [id number] 05:15:00* Test Item Value Reference Range Interpretation Comments Anion Gap (test code = 57597-8) 11.6 8-16 [facility] or plasma urea nitrogen measurement (mass/volume)2019-11-17 05:15:00* Test Item Value Reference Range Interpretation Comments Blood Urea Nitrogen (test code = 3094-0) 10 7-26 [facility] or plasma creatinine measurement (mass/volume)2019-11-17 05:15:00* Test Item Value Reference Range Interpretation Comments Creatinine (test code = 2160-0) 0.70 0.72-1.25 [facility] or plasma urea nitrogen/creatinine mass wcxjy8102-10-26 05:15:00* Test Item Value Reference Range Interpretation Comments BUN/Creatinine Ratio (test code = 3097-3) 14 6-25 [facility] DallasEstimated glomerular filtration rate (GFR) autydydxghvwl4506-89-08 05:15:00* Test Item Value Reference Range Interpretation Comments Estimat Glomerular Filtration Rate (test code = 136044572) > 60 >60 Ranges were taken from the National Kidney Disease Education Program and the [facility] literature.Reference ranges:60 or greater: Ikgtri81-82 ( for 3 consecutive months): Chronic kidney disease 15 or less: Kidney failureTexas Health Presbyterian DallasGlucose jszrpngxuxk8357-91-56 05:15:00* Test Item Value Reference Range Interpretation Comments Glucose Level (test code = GEM8917) 103 74-118 [facility] or plasma calcium measurement (mass/volume)2019-11-17 05:15:00* Test Item Value Reference Range Interpretation Comments Calcium Level (test code = 95591-1) 8.0 8.4-10.2 [facility] DallasRETROGRADE FENUZDHYN6285-23-24 12:41:00 [facility] [address] [address] Patient Name: JARAD SHERMAN MR #: [id number] : 1930 Age/Sex: 89/M Req #: [id number] Adm Physician: KULWINDER AMBROSE MD Ordered by: ASHOK PURI MD Report #: [id number] [facility] Procedure: DX/RETROGRADE PY ELOGRAM Exam Date: 11/14/19 Exam Time: 08 REPORT STATUS: Signed OR Fluoroscopy: IMPRESSION: Fluoroscopy service provided in the OR. Interpretation not requ ested. Signed by: Derrick Mckenna MD on 11/14/2019 12:41 PM Dictated B y: DERRICK MCKENNA MD 124 Transcribed By: SIXTO on 11/14/19 1241 COPY TO: ASHOK PURI MD Serum or plasma magnesium measurement (mass/volume)2019-11-14 10:30:00* Test Item Value Reference Range Interpretation Comments Magnesium Level (test code = 33165-7) 2.0 1.3-2.1 [facility] 2 [id number] 16:21:[address] [address] Patient Name: JARAD SHERMAN MR #: [id number] : 1930 Age/Sex: 89/M Req #: [id number] Adm Physician: Ordered by: ASHOK PURI MD Report #: [id number] Location: OR Room/Bed: Procedure: DX/CHEST 2 VIEWS Exam Date: 11/09/19 Exam Time: 154 REPORT STATUS: Signed EXAMINATION: CHEST 2 VIEWS INDICATION: Pre-operative COMPARISON: Chest radiograph 07/24/2019 FINDINGS: LINES/TUBES:None LUNGS:The lungs are mildly hype rinflated. Biapical pleural parenchymal thickening/scarring. Increased promine ntly peripheral interstitial opacities. No focal consolidation. PLEURA:No pleural effusion or pneumothorax. MEDIASTINUM:The cardiomediastinal silhou ette appears normal in size and shape. BONES/SOFT TISSUES:No acute osseous injury. Cervical spine fusion hardware. ABDOMEN:No free air under the diaph ragm. IMPRESSION: No focal pneumonia or pulmonary edema. Prominently peripheral interstitial opacities likely representing component of chronic int erstitial lung disease. Signed by: Brendan Marcano MD on 11/09/2019 4:22 PM Dictated By: BRENDAN MARCANO MD 21 COPY TO: ASHOK PURI MD Fluoroscopic procedure less than one hour zaicyadu4472-84-03 16:00:00* Test Item Value Reference Range Interpretation Comments Coronavirus (PCR) (test code = Coronavirus (PCR)) NOT DETECTED NOTD ETECTED SARS-COV-2 (COVID19), HIGHRISK, RT-PCRNegative results do not preclude SARS-CoV- 2 infection and should not be used as the sole basis for patient management deci sions. Negative results must be combined with clinical observations, patient his tory, and epidemiological information. Optimum specimen types and timing for pea k viral levels during infections caused by SARS-CoV-2 have not been determined. Collection of multiple specimens ot types of specimens may be necessary to detec t virus. Improper specimen collection and handling, sequence variability under p rimers/probes, or organism present below the limit of detection may lead to fals e negative results. Positive and negative predictive values of testing are highl y dependent on prevalance. False negative test results are more likely when prev alence is high.The expected result is negative (not detected).The SARS-CoV-2 jose antonio t is intended for the qualitative detection of nucleic acid from SARS-CoV-2 in n asopharyngeal and oropharyngeal swab samples from patients who meet COVID-19 cli nical and or epidemiological criteria. For lower respiratory tract specimens, th e assay is submitted for authoriztion by FDA under an Emergency Use Authorizatio n (EUA). Testing methodology is real time RT-PCR. If received as separate collec tion devices, nasopharygeal and oropharyngeal specimens are combined for analysi s. Additional specimens may be split to a separate accession for analysi and rep orting as this test includes a single unit of service.Test results must be corre lated with clinical presentation and evaluated in the context of other laborator y and epidemiologic data. Test performance can be affected because the epidemiol ogy and clinical spectrum of infection caused by SARS-CoV-2 is not fully known. For example, the optimum types of specimens to collect and when during the cours e of infection these specimens are most likely to contain detectable viral RNA m ay not be known.This test has not been Food and Drug Administration (FDA) cleare d or approved and has been authorized by FDA under an Emergency Use Authorizatio n (EUA). The test is only authorized for the duration of the declaration that ci rcumstances exist justifying the authorization of emergency use of in vitro diag nostic tests for detection and/or diagnosis of SARS-CoV-2 under section 564(b) o f the Act, 21 U.S.C. section 360bbb-3(b)(1), unless the authorization is termina dasia or revoked sooner. [facility] are certified under the C linical Laboratory Improvement Amendments of 1988 (CLIA), 42 U.S.C. section 263a , to perform high complexity tests.Testing performed by [facility] [id number] [id number] Director: Jose Villanueva M.D.CLIA # [id number] Health Presbyterian DallasUrine color hputvyaihyfkw6778-57-73 00:50:00* Test Item Value Reference Range Interpretation Comments Urine Color (test code = 5778-6) MATTHEW YELLOW [facility] DallasUrine [id number] 00:50:00* Test Item Value Reference Range Interpretation Comments Urine Clarity (test code = 75476-1) TURBID CLEAR [facility] gravity of Urine by Test strip 2019-10-19 00:50:00* Test Item Value Reference Range Interpretation Comments Urine Specific [place] (test code = 5811-5) 1.020 1.010-1.02 5 [facility] DallasU[facility] pH measurement by automated test [id number] 00:50:00* Test Item Value Reference Range Interpretation Comments Urine pH (test code = 70587-6) 8.5 5-7 [facility] DallasUrine leukocyte esterase detection by icneflwg9615-96-24 00:50:00* Test Item Value Reference Range Interpretation Comments Urine Leukocyte Esterase (test code = 5799-2) SMALL NEGATIVE [facility] DallasUrine nitrite ewlkpgooj2028-41-30 00:50:00* Test Item Value Reference Range Interpretation Comments Urine Nitrite (test code = 01387-6) POSITIVE NEGATIVE [facility] DallasUrine protein measurement by test strip (mass/volume)2019-10-19 00:50:00* Test Item Value Reference Range Interpretation Comments Urine Protein (test code = 5804-0) 1+ NEGATIVE [facility] DallasUrine glucose todrjodvt5525-19-54 00:50:00* Test Item Value Reference Range Interpretation Comments Urine Glucose (UA) (test code = 2349-9) NEGATIVE NEGATIVE [facility] DallasUrine ketones detection by automated test ekmyw5937-52-99 00:50:00* Test Item Value Reference Range Interpretation Comments Urine Ketones (test code = 34155-0) NEGATIVE NEGATIVE [facility] DallasUrine urobilinogen measurement by test strip (mass/volume)2019-10-19 00:50:00* Test Item Value Reference Range Interpretation Comments Urine Urobilinogen (test code = 79894-4) 0.2 0.2-1 [facility] DallasUrine total bilirubin measurement (mass/volume)2019-10-19 00:50:00* Test Item Value Reference Range Interpretation Comments Urine Bilirubin (test code = 1978-6) NEGATIVE NEGATIVE [facility] DallasUrine erythrocytes vvolijayu0095-58-62 00:50:00* Test Item Value Reference Range Interpretation Comments Urine Blood (test code = 65533-3) TRACE NEGATIVE [facility] DallasAutomated urine sediment leukocyte count by microscopy (number/high power field)2019-10-19 00:50:00* Test Item Value Reference Range Interpretation Comments Urine WBC (test code = 5821-4) 21-50 0-5 [facility] DallasErythrocytes detection in urine sediment by light uncoaxxoqv3233-50-24 00:50:00* Test Item Value Reference Range Interpretation Comments Urine RBC (test code = 51854-2) 6-10 0-5 [facility] DallasBacteria detection in urine sediment by light eswouxpzbe8066-58-79 00:50:00* Test Item Value Reference Range Interpretation Comments Urine Bacteria (test code = 63322-1) MANY NONE [facility] DallasEpithelial cells detection in urine sediment by light ziqmoifcfs0479-56-51 00:50:00* Test Item Value Reference Range Interpretation Comments Urine Epithelial Cells (test code = 03308-5) FEW NONE [facility] DallasTriple phosphate crystals detection in urine sediment by light fjoidimfwd2106-33-61 00:50:00* Test Item Value Reference Range Interpretation Comments Urine Triple Phosphate Crystals (test code = 5814-9) MODERATE F EW [facility] DallasBacterial urine fppraga3454-64-55 00:50:00* Test Item Value Reference Range Interpretation Comments Urine Culture (test code = 630-4) PROTEUS VULGARIS [facility] DallasCreatine Kinase VB2490-91-20 06:12:00* Test Item Value Reference Range Interpretation Comments Creatine Kinase MB (test code = 18876-2) 1.20 0-5.0 [facility] DallasTroponin M1645-84-18 06:12:00* Test Item Value Reference Range Interpretation Comments Troponin I (test code = XWN3853) 0.019 0-0.300 [facility] DallasCreatine Qopybc0598-94-76 06:09:00* Test Item Value Reference Range Interpretation Comments Creatine Kinase (test code = 2157-6) 219 30-200 H [facility]odium Wsntw8826-05-84 05:44:00* Test Item Value Reference Range Interpretation Comments Sodium Level (test code = 2951-2) 130 136-145 L [facility] DallasPotassium Cnshz3922-87-05 05:44:00* Test Item Value Reference Range Interpretation Comments Potassium Level (test code = 2823-3) 3.8 3.5-5.1 [facility] DallasChloride Bfqwz8689-99-60 05:44:00* Test Item Value Reference Range Interpretation Comments Chloride Level (test code = 2075-0) 98 98-107 [facility] DallasCarbon Dioxide Fjghk8263-83-96 05:44:00* Test Item Value Reference Range Interpretation Comments Carbon Dioxide Level (test code = 2028-9) 21 22-29 L [facility] DallasAnion Yrs2620-05-71 05:44:00* Test Item Value Reference Range Interpretation Comments Anion Gap (test code = 89553-6) 14.8 8-16 [facility] DallasBlood Urea Xifqveee4982-38-39 05:44:00* Test Item Value Reference Range Interpretation Comments Blood Urea Nitrogen (test code = 3094-0) 10 7-26 [facility] DallasCreatinine2020-01-28 05:44:00* Test Item Value Reference Range Interpretation Comments Creatinine (test code = 2160-0) 0.69 0.72-1.25 L [facility] DallasBUN/Creatinine Kexwn5784-22-51 05:44:00* Test Item Value Reference Range Interpretation Comments BUN/Creatinine Ratio (test code = 3097-3) 14 6-25 [facility] DallasEstimat Glomerular Filtration Rate 2019-07-24 05:44:00* Test Item Value Reference Range Interpretation Comments Estimat Glomerular Filtration Rate (test code = 438391423) > 60 >60 Ranges were taken from the National Kidney Disease Education Program and the [facility] literature.Reference ranges:60 or greater: Zefoyo72-09 ( for 3 consecutive months): Chronic kidney disease 15 or less: Kidney failureTexas Health Presbyterian DallasGlucose Swufh8721-49-20 05:44:00* Test Item Value Reference Range Interpretation Comments Glucose Level (test code = KZY3586) 76 74-118 [facility] DallasCalcium Vzblb1748-01-14 05:44:00* Test Item Value Reference Range Interpretation Comments Calcium Level (test code = 82884-3) 8.1 8.4-10.2 L [facility] DallasCHEST SINGLE (PORTABLE)2019-07-24 05:38:00 [facility] [address] [place] [place], [place] [address] Patient Name: JARAD SHERMAN MR #: [id number] : 1930 Age/Sex: 89/M Req #: [id number] Adm Physician: KULWINDER AMBROSE MD Ordered by: NATHANIEL PINZON NP Report #: [id number] Location: MED/SURG2 Room/Bed: [facility] Procedure: [id number] DX/CHEST SINGLE (PORTABLE) Exam Date: 07/24/19 Exam Time: 0505 REPORT STATUS: Signed EXAMINATION: CHEST SINGLE (PORTABLE) COMPARISON: Chest x-ray 07/23/2019 INDICATION: WEAKNESS [id number] DISCUSSION: Frontal view of the chest [...] TO: NATHANIEL BARGER ACE, NP White Blood Ouwif3646-43-78 05:28:00* Test Item Value Reference Range Interpretation Comments White Blood Count (test code = 6690-2) 8.54 4.8-10.8 [facility] DallasRed Blood Szswo3636-40-29 05:28:00* Test Item Value Reference Range Interpretation Comments Red Blood Count (test code = 789-8) 4.28 4.3-5.7 L [facility] DallasHemoglobin2020-01-28 05:28:00* Test Item Value Reference Range Interpretation Comments Hemoglobin (test code = 95132-3) 13.3 14.0-18.0 L [facility] DallasHematocrit2020-01-28 05:28:00* Test Item Value Reference Range Interpretation Comments Hematocrit (test code = 4544-3) 40.1 38.2-49.6 [facility] DallasMean Corpuscular Dokhdd7450-61-11 05:28:00* Test Item Value Reference Range Interpretation Comments Mean Corpuscular Volume (test code = 787-2) 93.7 81-99 [facility] DallasMean Corpuscular Vziixcgzwx5898-84-78 05:28:00* Test Item Value Reference Range Interpretation Comments Mean Corpuscular Hemoglobin (test code = 785-6) 31.1 28-32 [facility] DallasMean Corpuscular Hemoglobin Concent 2019-07-24 05:28:00* Test Item Value Reference Range Interpretation Comments Mean Corpuscular Hemoglobin Concent (test code = 786-4) 33.2 31-35 [facility] DallasRed Cell Distribution Vuljp4995-76-12 05:28:00* Test Item Value Reference Range Interpretation Comments Red Cell Distribution Width (test code = 53924-2) 14.1 11.7 -14.4 [facility] DallasPlatelet Dgjdz6554-12-29 05:28:00* Test Item Value Reference Range Interpretation Comments Platelet Count (test code = 777-3) 170 140-360 [facility] DallasNeutrophils (%) (Auto)2019-07-24 05:28:00 * Test Item Value Reference Range Interpretation Comments Neutrophils (%) (Auto) (test code = 32532-1) 67.7 38.7-80.0 [facility] DallasLymphocytes (%) (Auto)2019-07-24 05:28:00 * Test Item Value Reference Range Interpretation Comments Lymphocytes (%) (Auto) (test code = 736-9) 18.5 18.0-39.1 [facility] DallasMonocytes (%) (Auto)2019-07-24 05:28:00* Test Item Value Reference Range Interpretation Comments Monocytes (%) (Auto) (test code = 5905-5) 12.5 4.4-11.3 H [facility] DallasEosinophils (%) (Auto)2019-07-24 05:28:00 * Test Item Value Reference Range Interpretation Comments Eosinophils (%) (Auto) (test code = 713-8) 0.2 0.0-6.0 [facility] DallasBasophils (%) (Auto)2019-07-24 05:28:00* Test Item Value Reference Range Interpretation Comments Basophils (%) (Auto) (test code = 706-2) 0.4 0.0-1.0 [facility] DallasIM GRANULOCYTES %2019-07-24 05:28:00* Test Item Value Reference Range Interpretation Comments IM GRANULOCYTES % (test code = IM GRANULOCYTES %) 0.7 0.0- 1.0 [facility] DallasNeutrophils # (Auto)2019-07-24 05:28:00* Test Item Value Reference Range Interpretation Comments Neutrophils # (Auto) (test code = 751-8) 5.8 2.1-6.9 [facility] DallasLymphocytes # (Auto)2019-07-24 05:28:00* Test Item Value Reference Range Interpretation Comments Lymphocytes # (Auto) (test code = 34480-6) 1.6 1.0-3.2 [facility] DallasMonocytes # (Auto)2019-07-24 05:28:00* Test Item Value Reference Range Interpretation Comments Monocytes # (Auto) (test code = 742-7) 1.1 0.2-0.8 H [facility] DallasEosinophils # (Auto)2019-07-24 05:28:00* Test Item Value Reference Range Interpretation Comments Eosinophils # (Auto) (test code = 711-2) 0.0 0.0-0.4 [facility] DallasBasophils # (Auto)2019-07-24 05:28:00* Test Item Value Reference Range Interpretation Comments Basophils # (Auto) (test code = 704-7) 0.0 0.0-0.1 [facility] DallasAbsolute Immature Granulocyte (auto 2019-07-24 05:28:00* Test Item Value Reference Range Interpretation Comments Absolute Immature Granulocyte (auto (jose antonio t code = Absolute Immature Granulocyte (auto) 0.06 0-0.1 [facility]roeerum or plasma creatine kinase measurement (enzymatic activity/volume)2019-07-24 04:05:00* Test Item Value Reference Range Interpretation Comments Creatine Kinase (test code = 2157-6) 219 30-200 [facility]roeerum or plasma creatine kinase MB measurement (mass/volume)2019-07-24 04:05:00* Test Item Value Reference Range Interpretation Comments Creatine Kinase MB (test code = 78286-8) 1.20 0-5.0 [facility] DallasTroponin I measurement by highly sensitive enzyme apyekbxcfcq4766-03-84 04:05:00* Test Item Value Reference Range Interpretation Comments Troponin I (test code = 50944-7) 0.019 0-0.300 [facility] DallasUrine DYI5027-93-31 11:53:00* Test Item Value Reference Range Interpretation Comments Urine WBC (test code = 5821-4) 6-10 0-5 H [facility] DallasUrine BIW9416-12-21 11:53:00* Test Item Value Reference Range Interpretation Comments Urine RBC (test code = 15178-7) 21-50 0-5 H [facility] DallasUrine Gryookzd1124-19-93 11:53:00* Test Item Value Reference Range Interpretation Comments Urine Bacteria (test code = 93413-3) MODERATE NONE H [facility] DallasUrine Epithelial Eodup0957-90-76 11:53:00 * Test Item Value Reference Range Interpretation Comments Urine Epithelial Cells (test code = 38487-4) MODERATE NONE [facility] DallasUrine Kwqaz4321-76-45 11:44:00* Test Item Value Reference Range Interpretation Comments Urine Color (test code = 5778-6) YELLOW YELLOW [facility] DallasUrine Vvjxdbk8206-77-98 11:44:00* Test Item Value Reference Range Interpretation Comments Urine Clarity (test code = 48637-3) CLEAR CLEAR [facility] Specific Eixvvxy0434-02-34 11:44:00 * Test Item Value Reference Range Interpretation Comments Urine Specific [place] (test code = 5811-5) 1.025 1.010-1.02 5 [facility] DallasUrine wS3440-96-05 11:44:00* Test Item Value Reference Range Interpretation Comments Urine pH (test code = 49313-7) 7.5 5-7 [facility] Leukocyte Waxsoqec4482-49-84 11:44:00* Test Item Value Reference Range Interpretation Comments Urine Leukocyte Esterase (test code = 5799-2) TRACE NEGATIVE H [facility] Gicazvi9830-94-90 11:44:00* Test Item Value Reference Range Interpretation Comments Urine Nitrite (test code = 60274-4) NEGATIVE NEGATIVE [facility] DallasUrine Vcrmdrt2401-50-09 11:44:00* Test Item Value Reference Range Interpretation Comments Urine Protein (test code = 5804-0) NEGATIVE NEGATIVE [facility] Glucose (UA)2019-07-23 11:44:00* Test Item Value Reference Range Interpretation Comments Urine Glucose (UA) (test code = 2349-9) NEGATIVE NEGATIVE [facility] DallasUrine Lwkdfve5567-09-79 11:44:00* Test Item Value Reference Range Interpretation Comments Urine Ketones (test code = 02541-7) 1+ NEGATIVE H [facility] Bvqbnsfujkza9984-03-62 11:44:00* Test Item Value Reference Range Interpretation Comments Urine Urobilinogen (test code = 84962-4) 0.2 0.2-1 [facility] DallasUrine Vqagjtlfn3371-80-77 11:44:00* Test Item Value Reference Range Interpretation Comments Urine Bilirubin (test code = 1978-6) NEGATIVE NEGATIVE [facility] DallasUrine Xhrzi0919-45-63 11:44:00* Test Item Value Reference Range Interpretation Comments Urine Blood (test code = 78404-9) 1+ NEGATIVE H [facility] SINGLE (PORTABLE)2019-07-23 11:21:00 [facility] [address] [address] Patient Name: JARAD SHERMAN MR #: [id number] : 1930 Age/Sex: 89/M Req #: [id number] Adm Physician: Ordered by: NATHANIEL PINZON NP Report #: [id number] Location: ER Room/Bed: Procedure: [id number] DX/CHEST SINGLE (PORTABLE) Exam Date: 07/23/19 Exam [...] on 07/23/19 1124 COPY TO: NATHANIEL PINZON [employer] Influenza Virus Types A,B Knpssbi8055-29-84 11:20:00* Test Item Value Reference Range Interpretation Comments Influenza Virus Types A,B Antigen (test code = 20893-8) POSITIVE FLU A NEGATIVE H Results called to MARCELINO CHAVEZ at 1118 on 07/23/19 by Angela Ayoub. RB [place].Resu lts called to JAVI MILLER in infection control at 1118 on 07/23/19 by Angela case.[facility] DallasProthrombin Zmdy2762-32-76 11:08:00 * Test Item Value Reference Range Interpretation Comments Prothrombin Time (test code = 5902-2) 13.1 11.9-14.5 [facility] DallasProthromb Time International Ratio 2019-07-23 11:08:00* Test Item Value Reference Range Interpretation Comments Prothromb Time International Ratio (test code = 6301-6) 0.94 Oral Anticoagulant Therapy INR Values:1. Low Intensity Therapy 1.5 - 2.02 . Moderate Intensity Therapy 2.0 - 3.03. High Intensity Therapy(1) 2.5 - 3. 54. High Intensity Therapy(2) 3.0 - 4.05. Panic Value INR > 5.0 [facility] DallasActivated Partial Thromboplast Time 2019-07-23 11:08:00* Test Item Value Reference Range Interpretation Comments Activated Partial Thromboplast Time (test code = 92352-7) 32.4 23.8-35.5 [facility] DallasTotal Wlsnexiqz7746-44-39 11:08:00* Test Item Value Reference Range Interpretation Comments Total Bilirubin (test code = 1975-2) 0.8 0.2-1.2 [facility] DallasAspartate Amino Transf (AST/SGOT) 2019-07-23 11:08:00* Test Item Value Reference Range Interpretation Comments Aspartate Amino Transf (AST/SGOT) (test code = Aspartate Amino Transf (AST/SGOT)) 24 5-34 [facility] DallasAlanine Aminotransferase (ALT/SGPT) 2019-07-23 11:08:00* Test Item Value Reference Range Interpretation Comments Alanine Aminotransferase (ALT/SGPT) (test code = 1742-6) 19 0-55 [facility] DallasTotal Gwrsogm0647-58-60 11:08:00* Test Item Value Reference Range Interpretation Comments Total Protein (test code = 2885-2) 6.7 6.5-8.1 [facility] DallasAlbumin2020-01-27 11:08:00* Test Item Value Reference Range Interpretation Comments Albumin (test code = 1751-7) 3.6 3.5-5.0 [facility] DallasGlobulin2020-01-27 11:08:00* Test Item Value Reference Range Interpretation Comments Globulin (test code = 98090-9) 3.1 2.3-3.5 [facility] DallasAlbumin/Globulin Hfpyk3843-77-01 11:08:00 * Test Item Value Reference Range Interpretation Comments Albumin/Globulin Ratio (test code = 1759-0) 1.2 0.8-2.0 [facility] DallasAlkaline Rfamnzdgtyf7005-45-53 11:08:00* Test Item Value Reference Range Interpretation Comments Alkaline Phosphatase (test code = 6768-6) 66 40-150 [facility] DallasProthrombin time (PT) in platelet poor plasma by coagulation honnk7827-94-65 09:45:00* Test Item Value Reference Range Interpretation Comments Prothrombin Time (test code = 5902-2) 13.1 11.9-14.5 [facility] DallasINR in Platelet poor plasma by Coagulation qqsht7585-80-74 09:45:00* Test Item Value Reference Range Interpretation Comments Prothromb Time International Ratio (test code = 6301-6) 0.94 Oral Anticoagulant Therapy INR Values:1. Low Intensity Therapy 1.5 - 2.02 . Moderate Intensity Therapy 2.0 - 3.03. High Intensity Therapy(1) 2.5 - 3. 54. High Intensity Therapy(2) 3.0 - 4.05. Panic Value INR > 5.0 [facility] DallasActivated partial thromboplastin time (aPTT) in platelet poor plasma by coagulation oqivv3934-54-92 09:45:00* Test Item Value Reference Range Interpretation Comments Activated Partial Thromboplast Time (test code = 54540-4) 32.4 23.8-35.5 [facility] DallasInfluenza virus A and B antigen identification by fwoptywixgumvvvstl0288-89-65 09:45:00* Test Item Value Reference Range Interpretation Comments Influenza Virus Types A,B Antigen (test code = 20176-7) POSITIVE FLU A NEGATIVE Results called to MARCELINO CHAVEZ at 1118 on 07/23/19 by Angela Ayoub. RB [place].Resu lts called to JAVI MILLER in infection control at 1118 on 07/23/19 by Angela case.[facility]roeerum or plasma total bilirubin measurement (mass/volume)2019-07-23 09:45:00* Test Item Value Reference Range Interpretation Comments Total Bilirubin (test code = 1975-2) 0.8 0.2-1.2 [facility] DallasFluoroscopic procedure less than one hour vuiogbip8903-33-44 09:45:00* Test Item Value Reference Range Interpretation Comments Aspartate Amino Transf (AST/SGOT) (test code = Aspartate Amino Transf (AST/SGOT)) 24 5-34 [facility]roeerum or plasma alanine aminotransferase measurement (enzymatic activity/volume)2019-07-23 09:45:00* Test Item Value Reference Range Interpretation Comments Alanine Aminotransferase (ALT/SGPT) (test code = 1742-6) 19 0-55 [facility]roeerum or plasma protein measurement (mass/volume)2019-07-23 09:45:00* Test Item Value Reference Range Interpretation Comments Total Protein (test code = 2885-2) 6.7 6.5-8.1 [facility]roeerum or plasma albumin measurement (mass/volume)2019-07-23 09:45:00* Test Item Value Reference Range Interpretation Comments Albumin (test code = 1751-7) 3.6 3.5-5.0 [facility] DallasPlasma globulin measurement (mass/volume) 2019-07-23 09:45:00* Test Item Value Reference Range Interpretation Comments Globulin (test code = 80593-9) 3.1 2.3-3.5 [facility]roeerum or plasma albumin/globulin mass rwzzn8341-60-88 09:45:00* Test Item Value Reference Range Interpretation Comments Albumin/Globulin Ratio (test code = 1759-0) 1.2 0.8-2.0 [facility]erum or plasma alkaline phosphatase measurement (enzymatic activity/volume)2019-07-23 09:45:00* Test Item Value Reference Range Interpretation Comments Alkaline Phosphatase (test code = 6768-6) 66 40-150 [facility] DallasCreatine Pvfyhm4877-04-54 17:10:00* Test Item Value Reference Range Interpretation Comments Creatine Kinase (test code = 2157-6) 93 30-200 [facility] DallasCreatine Kinase LK7576-55-67 17:10:00* Test Item Value Reference Range Interpretation Comments Creatine Kinase MB (test code = 21380-5) 2.00 0-5.0 [facility] DallasTroponin T4187-45-08 17:10:00* Test Item Value Reference Range Interpretation Comments Troponin I (test code = BIJ2584) 0.010 0-0.300 [facility] DallasCHEST 2 FQTPF8718-03-83 14:40:00 [facility] [address] [place] [address] Patient Name: JARAD SHERMAN MR #: [id number] : 1930 Age/Sex: 88/M Req #: [id number] Adm Physician: Ordered by: ALLYSON MITCHELL MD Report #: [id number] Location: ER Room/Bed: Procedure: [id number] DX/CHEST 2 VIEWS Exam Date: 01/27/19 Exam [...] 01/27/19 1442 COPY TO: ALLYSON MITCHELL MD Sodium Mcjlk8624-85-17 14:13:00* Test Item Value Reference Range Interpretation Comments Sodium Level (test code = 2951-2) 137 136-145 [facility] DallasPotassium Sncqw0780-29-05 14:13:00* Test Item Value Reference Range Interpretation Comments Potassium Level (test code = 2823-3) 3.8 3.5-5.1 [facility] DallasChloride Qktpz5657-50-90 14:13:00* Test Item Value Reference Range Interpretation Comments Chloride Level (test code = 2075-0) 101 98-107 [facility] DallasCarbon Dioxide Laybc1403-55-68 14:13:00* Test Item Value Reference Range Interpretation Comments Carbon Dioxide Level (test code = 2028-9) 24 22-29 [facility] DallasAnion Qvd0808-11-62 14:13:00* Test Item Value Reference Range Interpretation Comments Anion Gap (test code = 33877-4) 15.8 8-16 [facility] DallasBlood Urea Zkbmhaio8878-45-39 14:13:00* Test Item Value Reference Range Interpretation Comments Blood Urea Nitrogen (test code = 3094-0) 11 7-26 [facility] DallasCreatinine2019-08-03 14:13:00* Test Item Value Reference Range Interpretation Comments Creatinine (test code = 2160-0) 0.82 0.72-1.25 [facility] DallasBUN/Creatinine Nmfmu0950-31-32 14:13:00* Test Item Value Reference Range Interpretation Comments BUN/Creatinine Ratio (test code = 3097-3) 13 6-25 [facility] DallasEstimat Glomerular Filtration Rate 2019-01-27 14:13:00* Test Item Value Reference Range Interpretation Comments Estimat Glomerular Filtration Rate (test code = 917928091) > 60 >60 Ranges were taken from the National Kidney Disease Education Program and the [facility] Kidney Foundation literature.Reference ranges:60 or greater: Guvagp50-69 ( for 3 consecutive months): Chronic kidney disease 15 or less: Kidney failureTexas Health Presbyterian DallasGlucose Pihuh5654-91-88 14:13:00* Test Item Value Reference Range Interpretation Comments Glucose Level (test code = HQT7943) 94 74-118 [facility] DallasCalcium Pxfwb8673-79-24 14:13:00* Test Item Value Reference Range Interpretation Comments Calcium Level (test code = 70152-1) 9.3 8.4-10.2 [facility] DallasTotal Wjzvedgkt2134-22-83 14:13:00* Test Item Value Reference Range Interpretation Comments Total Bilirubin (test code = 1975-2) 0.6 0.2-1.2 [facility] DallasAspartate Amino Transf (AST/SGOT) 2019-01-27 14:13:00* Test Item Value Reference Range Interpretation Comments Aspartate Amino Transf (AST/SGOT) (test code = Aspartate Amino Transf (AST/SGOT)) 21 5-34 [facility] DallasAlanine Aminotransferase (ALT/SGPT) 2019-01-27 14:13:00* Test Item Value Reference Range Interpretation Comments Alanine Aminotransferase (ALT/SGPT) (test code = 1742-6) 21 0-55 [facility] DallasTotal Lmkubpa8259-36-38 14:13:00* Test Item Value Reference Range Interpretation Comments Total Protein (test code = 2885-2) 7.0 6.5-8.1 [facility] DallasAlbumin2019-08-03 14:13:00* Test Item Value Reference Range Interpretation Comments Albumin (test code = 1751-7) 3.6 3.5-5.0 [facility] DallasGlobulin2019-08-03 14:13:00* Test Item Value Reference Range Interpretation Comments Globulin (test code = 58094-2) 3.4 2.3-3.5 [facility] DallasAlbumin/Globulin Lugfg6704-88-56 14:13:00 * Test Item Value Reference Range Interpretation Comments Albumin/Globulin Ratio (test code = 1759-0) 1.1 0.8-2.0 [facility] DallasAlkaline Iydxcsupbtd2043-81-63 14:13:00* Test Item Value Reference Range Interpretation Comments Alkaline Phosphatase (test code = 6768-6) 71 40-150 [facility] DallasWhite Blood Fxmvs5003-04-66 13:42:00* Test Item Value Reference Range Interpretation Comments White Blood Count (test code = 6690-2) 13.37 4.8-10.8 H [facility] DallasRed Blood Xvijr3632-10-88 13:42:00* Test Item Value Reference Range Interpretation Comments Red Blood Count (test code = 789-8) 4.84 4.3-5.7 [facility] DallasHemoglobin2019-08-03 13:42:00* Test Item Value Reference Range Interpretation Comments Hemoglobin (test code = 18789-5) 15.1 14.0-18.0 [facility] DallasHematocrit2019-08-03 13:42:00* Test Item Value Reference Range Interpretation Comments Hematocrit (test code = 4544-3) 45.1 38.2-49.6 [facility] DallasMean Corpuscular Avecza7401-95-16 13:42:00* Test Item Value Reference Range Interpretation Comments Mean Corpuscular Volume (test code = 787-2) 93.2 81-99 [facility] DallasMean Corpuscular Vrrybtxopp0687-70-69 13:42:00* Test Item Value Reference Range Interpretation Comments Mean Corpuscular Hemoglobin (test code = 785-6) 31.2 28-32 [facility] DallasMean Corpuscular Hemoglobin Concent 2019-01-27 13:42:00* Test Item Value Reference Range Interpretation Comments Mean Corpuscular Hemoglobin Concent (test code = 786-4) 33.5 31-35 [facility]Red Cell Distribution Maxwl3163-27-00 13:42:00* Test Item Value Reference Range Interpretation Comments Red Cell Distribution Width (test code = 00905-3) 14.5 11.7 -14.4 H [facility] DallasPlatelet Jrsgr9796-75-14 13:42:00* Test Item Value Reference Range Interpretation Comments Platelet Count (test code = 777-3) 244 140-360 [facility] DallasNeutrophils (%) (Auto)2019-01-27 13:42:00 * Test Item Value Reference Range Interpretation Comments Neutrophils (%) (Auto) (test code = 94224-3) 71.8 38.7-80.0 [facility] DallasLymphocytes (%) (Auto)2019-01-27 13:42:00 * Test Item Value Reference Range Interpretation Comments Lymphocytes (%) (Auto) (test code = 736-9) 18.5 18.0-39.1 [facility] DallasMonocytes (%) (Auto)2019-01-27 13:42:00* Test Item Value Reference Range Interpretation Comments Monocytes (%) (Auto) (test code = 5905-5) 8.3 4.4-11.3 [facility] DallasEosinophils (%) (Auto)2019-01-27 13:42:00 * Test Item Value Reference Range Interpretation Comments Eosinophils (%) (Auto) (test code = 713-8) 0.4 0.0-6.0 [facility] DallasBasophils (%) (Auto)2019-01-27 13:42:00* Test Item Value Reference Range Interpretation Comments Basophils (%) (Auto) (test code = 706-2) 0.3 0.0-1.0 [facility] DallasIM GRANULOCYTES %2019-01-27 13:42:00* Test Item Value Reference Range Interpretation Comments IM GRANULOCYTES % (test code = IM GRANULOCYTES %) 0.7 0.0- 1.0 [facility] DallasNeutrophils # (Auto)2019-01-27 13:42:00* Test Item Value Reference Range Interpretation Comments Neutrophils # (Auto) (test code = 751-8) 9.6 2.1-6.9 H [facility] DallasLymphocytes # (Auto)2019-01-27 13:42:00* Test Item Value Reference Range Interpretation Comments Lymphocytes # (Auto) (test code = 92053-0) 2.5 1.0-3.2 [facility] DallasMonocytes # (Auto)2019-01-27 13:42:00* Test Item Value Reference Range Interpretation Comments Monocytes # (Auto) (test code = 742-7) 1.1 0.2-0.8 H [facility] DallasEosinophils # (Auto)2019-01-27 13:42:00* Test Item Value Reference Range Interpretation Comments Eosinophils # (Auto) (test code = 711-2) 0.1 0.0-0.4 [facility] DallasBasophils # (Auto)2019-01-27 13:42:00* Test Item Value Reference Range Interpretation Comments Basophils # (Auto) (test code = 704-7) 0.0 0.0-0.1 [facility] DallasAbsolute Immature Granulocyte (auto 2019-01-27 13:42:00* Test Item Value Reference Range Interpretation Comments Absolute Immature Granulocyte (auto (jose antonio t code = Absolute Immature Granulocyte (auto) 0.10 0-0.1 [facility] DallasMagnesium Wrwbb9523-71-00 06:53:00* Test Item Value Reference Range Interpretation Comments Magnesium Level (test code = 92375-2) 2.0 1.3-2.1 [facility] DallasMagnesium Ogomf8188-89-09 06:53:00* Test Item Value Reference Range Interpretation Comments Magnesium Level (test code = 94703-3) 2.0 1.3-2.1 [facility]odium Rxrds8003-90-60 06:18:00* Test Item Value Reference Range Interpretation Comments Sodium Level (test code = 2951-2) 136 136-145 [facility] DallasPotassium Xdpyg5543-44-63 06:18:00* Test Item Value Reference Range Interpretation Comments Potassium Level (test code = 2823-3) 3.7 3.5-5.1 [facility] DallasChloride Vdofm7582-21-85 06:18:00* Test Item Value Reference Range Interpretation Comments Chloride Level (test code = 2075-0) 104 98-107 [facility] DallasCarbon Dioxide Thkie2656-72-97 06:18:00* Test Item Value Reference Range Interpretation Comments Carbon Dioxide Level (test code = 2028-9) 24 22-29 [facility] DallasAnion Ytj7446-79-49 06:18:00* Test Item Value Reference Range Interpretation Comments Anion Gap (test code = 38947-6) 11.7 8-16 [facility] DallasBlood Urea Nhdohgxt9713-03-28 06:18:00* Test Item Value Reference Range Interpretation Comments Blood Urea Nitrogen (test code = 3094-0) 10 7-26 [facility] DallasCreatinine2019-03-05 06:18:00* Test Item Value Reference Range Interpretation Comments Creatinine (test code = 2160-0) 0.79 0.72-1.25 [facility] DallasBUN/Creatinine Dpzzt1758-01-63 06:18:00* Test Item Value Reference Range Interpretation Comments BUN/Creatinine Ratio (test code = 3097-3) 13 6-25 [facility] DallasEstimat Glomerular Filtration Rate 2018-08-29 06:18:00* Test Item Value Reference Range Interpretation Comments Estimat Glomerular Filtration Rate (test code = 145438923) > 60 >60 Ranges were taken from the National Kidney Disease Education Program and the [facility] literature.Reference ranges:60 or greater: Rrcvfc84-49 ( for 3 consecutive months): Chronic kidney disease 15 or less: Kidney failureTexas Health Presbyterian DallasGlucose Bfutp6795-42-49 06:18:00* Test Item Value Reference Range Interpretation Comments Glucose Level (test code = IJY3836) 104 74-118 [facility] DallasCalcium Ddwsw2700-38-85 06:18:00* Test Item Value Reference Range Interpretation Comments Calcium Level (test code = 78747-3) 8.3 8.4-10.2 L [facility] DallasTotal Nlxqlkacs7630-60-67 06:18:00* Test Item Value Reference Range Interpretation Comments Total Bilirubin (test code = 1975-2) 1.1 0.2-1.2 [facility] DallasAspartate Amino Transf (AST/SGOT) 2018-08-29 06:18:00* Test Item Value Reference Range Interpretation Comments Aspartate Amino Transf (AST/SGOT) (test code = Aspartate Amino Transf (AST/SGOT)) 16 5-34 [facility] DallasAlanine Aminotransferase (ALT/SGPT) 2018-08-29 06:18:00* Test Item Value Reference Range Interpretation Comments Alanine Aminotransferase (ALT/SGPT) (test code = 1742-6) 14 0-55 [facility] DallasTotal Xzlphwu3433-06-15 06:18:00* Test Item Value Reference Range Interpretation Comments Total Protein (test code = 2885-2) 5.6 6.5-8.1 L [facility] DallasAlbumin2019-03-05 06:18:00* Test Item Value Reference Range Interpretation Comments Albumin (test code = 1751-7) 2.8 3.5-5.0 L [facility] DallasGlobulin2019-03-05 06:18:00* Test Item Value Reference Range Interpretation Comments Globulin (test code = 22538-4) 2.8 2.3-3.5 [facility] DallasAlbumin/Globulin Cbxkd8407-36-11 06:18:00 * Test Item Value Reference Range Interpretation Comments Albumin/Globulin Ratio (test code = 1759-0) 1.0 0.8-2.0 [facility] DallasAlkaline Bpugfdozphr2581-10-43 06:18:00* Test Item Value Reference Range Interpretation Comments Alkaline Phosphatase (test code = 6768-6) 55 40-150 [facility] DallasWhite Blood Mneou1224-35-28 05:57:00* Test Item Value Reference Range Interpretation Comments White Blood Count (test code = 6690-2) 10.87 4.8-10.8 H [facility] DallasRed Blood Ekssr7590-58-85 05:57:00* Test Item Value Reference Range Interpretation Comments Red Blood Count (test code = 789-8) 4.23 4.3-5.7 L [facility] DallasHemoglobin2019-03-05 05:57:00* Test Item Value Reference Range Interpretation Comments Hemoglobin (test code = 14700-0) 12.9 14.0-18.0 L [facility] DallasHematocrit2019-03-05 05:57:00* Test Item Value Reference Range Interpretation Comments Hematocrit (test code = 4544-3) 39.1 38.2-49.6 [facility] DallasMean Corpuscular Ankixh2787-14-42 05:57:00* Test Item Value Reference Range Interpretation Comments Mean Corpuscular Volume (test code = 787-2) 92.4 81-99 [facility] DallasMean Corpuscular Lbivgbqbgo4766-37-09 05:57:00* Test Item Value Reference Range Interpretation Comments Mean Corpuscular Hemoglobin (test code = 785-6) 30.5 28-32 [facility] DallasMean Corpuscular Hemoglobin Concent 2018-08-29 05:57:00* Test Item Value Reference Range Interpretation Comments Mean Corpuscular Hemoglobin Concent (test code = 786-4) 33.0 31-35 [facility] DallasRed Cell Distribution Jpebj7476-88-58 05:57:00* Test Item Value Reference Range Interpretation Comments Red Cell Distribution Width (test code = 59281-0) 14.1 11.7 -14.4 [facility] DallasPlatelet Jchsx2291-65-21 05:57:00* Test Item Value Reference Range Interpretation Comments Platelet Count (test code = 777-3) 206 140-360 [facility] DallasNeutrophils (%) (Auto)2018-08-29 05:57:00 * Test Item Value Reference Range Interpretation Comments Neutrophils (%) (Auto) (test code = 47222-7) 76.6 38.7-80.0 [facility] DallasLymphocytes (%) (Auto)2018-08-29 05:57:00 * Test Item Value Reference Range Interpretation Comments Lymphocytes (%) (Auto) (test code = 736-9) 13.3 18.0-39.1 L [facility] DallasMonocytes (%) (Auto)2018-08-29 05:57:00* Test Item Value Reference Range Interpretation Comments Monocytes (%) (Auto) (test code = 5905-5) 8.3 4.4-11.3 [facility] DallasEosinophils (%) (Auto)2018-08-29 05:57:00 * Test Item Value Reference Range Interpretation Comments Eosinophils (%) (Auto) (test code = 713-8) 1.0 0.0-6.0 [facility] DallasBasophils (%) (Auto)2018-08-29 05:57:00* Test Item Value Reference Range Interpretation Comments Basophils (%) (Auto) (test code = 706-2) 0.3 0.0-1.0 [facility] DallasIM GRANULOCYTES %2018-08-29 05:57:00* Test Item Value Reference Range Interpretation Comments IM GRANULOCYTES % (test code = IM GRANULOCYTES %) 0.5 0.0- 1.0 [facility] DallasNeutrophils # (Auto)2018-08-29 05:57:00* Test Item Value Reference Range Interpretation Comments Neutrophils # (Auto) (test code = 751-8) 8.3 2.1-6.9 H [facility] DallasLymphocytes # (Auto)2018-08-29 05:57:00* Test Item Value Reference Range Interpretation Comments Lymphocytes # (Auto) (test code = 53396-1) 1.5 1.0-3.2 [facility] DallasMonocytes # (Auto)2018-08-29 05:57:00* Test Item Value Reference Range Interpretation Comments Monocytes # (Auto) (test code = 742-7) 0.9 0.2-0.8 H [facility] DallasEosinophils # (Auto)2018-08-29 05:57:00* Test Item Value Reference Range Interpretation Comments Eosinophils # (Auto) (test code = 711-2) 0.1 0.0-0.4 [facility] DallasBasophils # (Auto)2018-08-29 05:57:00* Test Item Value Reference Range Interpretation Comments Basophils # (Auto) (test code = 704-7) 0.0 0.0-0.1 [facility] DallasAbsolute Immature Granulocyte (auto 2018-08-29 05:57:00* Test Item Value Reference Range Interpretation Comments Absolute Immature Granulocyte (auto (jose antonio t code = Absolute Immature Granulocyte (auto) 0.05 0-0.1 [facility] DallasCT ABDOMEN/PELVIS I9837-79-67 14:27:00 [place] [address] Patient Name: JARAD SHERMAN MR #: [id number] : 1930 Age/Sex: 88/M Req #: [id number] Adm Physician: Ordered by: KENNY SUMMERS NP Report #: [id number] Location: ER Room/Bed: Procedure: [id number]/CT [...] By: SIXTO on 9 1436 COPY TO: KRISTOPHER,KENNY [employer]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 Differential Total Cells Zhwadsg9070-64-45 13:09:00* Test Item Value Reference Range Interpretation Comments Differential Total Cells Counted (test code = Differen tial Total Cells Counted) 100 [facility] DallasNeutrophils % (Manual)2018-08-28 13:09:00 * Test Item Value Reference Range Interpretation Comments Neutrophils % (Manual) (test code = 57569-9) 86 40-74 H [facility] DallasLymphocytes % (Manual)2018-08-28 13:09:00 * Test Item Value Reference Range Interpretation Comments Lymphocytes % (Manual) (test code = 737-7) 3 19-48 L [facility] DallasMonocytes % (Manual)2018-08-28 13:09:00* Test Item Value Reference Range Interpretation Comments Monocytes % (Manual) (test code = 744-3) 11 3.4-9.0 H [facility] DallasPlatelet Hzeibcbq4754-26-76 13:09:00* Test Item Value Reference Range Interpretation Comments Platelet Estimate (test code = 77953-5) ADEQUATE [facility] DallasPlatelet Morphology Bcrkmpt3410-03-21 13:09:00* Test Item Value Reference Range Interpretation Comments Platelet Morphology Comment (test code = 78434-7) NORMAL [facility] DallasRed Cell Morphology Fymjtqu5477-05-10 13:09:00* Test Item Value Reference Range Interpretation Comments Red Cell Morphology Comment (test code = 6742-1) NORMAL [facility] DallasDifferential Total Cells Counted 2018-08-28 13:09:00* Test Item Value Reference Range Interpretation Comments Differential Total Cells Counted (test code = Differen tial Total Cells Counted) 100 [facility] DallasNeutrophils % (Manual)2018-08-28 13:09:00 * Test Item Value Reference Range Interpretation Comments Neutrophils % (Manual) (test code = 56203-0) 86 40-74 H [facility] DallasLymphocytes % (Manual)2018-08-28 13:09:00 * Test Item Value Reference Range Interpretation Comments Lymphocytes % (Manual) (test code = 737-7) 3 19-48 L [facility] DallasMonocytes % (Manual)2018-08-28 13:09:00* Test Item Value Reference Range Interpretation Comments Monocytes % (Manual) (test code = 744-3) 11 3.4-9.0 H [facility] DallasPlatelet Zzhkvyww0559-23-97 13:09:00* Test Item Value Reference Range Interpretation Comments Platelet Estimate (test code = 49266-0) ADEQUATE [facility] DallasPlatelet Morphology Pydzsdf8530-97-81 13:09:00* Test Item Value Reference Range Interpretation Comments Platelet Morphology Comment (test code = 58573-4) NORMAL [facility] DallasRed Cell Morphology Bndlepc5549-75-68 13:09:00* Test Item Value Reference Range Interpretation Comments Red Cell Morphology Comment (test code = 6742-1) NORMAL [facility] DallasUrine Coarse Granular Rbutz3079-64-18 12:51:00* Test Item Value Reference Range Interpretation Comments Urine Coarse Granular Casts (test code = 48565-1) 1-5 >0 H [facility] DallasUrine Zxxwu3504-26-33 12:51:00* Test Item Value Reference Range Interpretation Comments Urine Mucus (test code = 8247-9) FEW RARE H [facility] DallasUrine Coarse Granular Ueelf8905-26-58 12:51:00* Test Item Value Reference Range Interpretation Comments Urine Coarse Granular Casts (test code = 43974-4) 1-5 >0 H [facility] DallasUrine Svbel9746-87-28 12:51:00* Test Item Value Reference Range Interpretation Comments Urine Mucus (test code = 8247-9) FEW RARE H [facility] DallasUrine Nvvvo6989-10-19 12:50:00* Test Item Value Reference Range Interpretation Comments Urine Color (test code = 5778-6) YELLOW YELLOW [facility] DallasUrine Lvqwaty8293-90-87 12:50:00* Test Item Value Reference Range Interpretation Comments Urine Clarity (test code = 88624-7) HAZY CLEAR [facility] DallasUrine Specific Hikrzqo3484-48-22 12:50:00 * Test Item Value Reference Range Interpretation Comments Urine Specific [place] (test code = 5811-5) 1.015 1.010-1.02 5 [facility] DallasUrine kJ3003-60-21 12:50:00* Test Item Value Reference Range Interpretation Comments Urine pH (test code = 15297-5) 6 5-7 [facility] DallasUrine Leukocyte Fslqxnsv0680-06-42 12:50:00* Test Item Value Reference Range Interpretation Comments Urine Leukocyte Esterase (test code = 5799-2) NEGATIVE NEGATIVE [facility] DallasUrine Bogwpny0082-24-84 12:50:00* Test Item Value Reference Range Interpretation Comments Urine Nitrite (test code = 90493-7) NEGATIVE NEGATIVE [facility] DallasUrine Ewlndsn4546-11-93 12:50:00* Test Item Value Reference Range Interpretation Comments Urine Protein (test code = 5804-0) NEGATIVE NEGATIVE [facility] Glucose (UA)2018-08-28 12:50:00* Test Item Value Reference Range Interpretation Comments Urine Glucose (UA) (test code = 2349-9) NEGATIVE NEGATIVE [facility] DallasUrine Hmchhnm8048-75-83 12:50:00* Test Item Value Reference Range Interpretation Comments Urine Ketones (test code = 85076-1) 1+ NEGATIVE H [facility] Jfnrmmxwzcfy9215-96-78 12:50:00* Test Item Value Reference Range Interpretation Comments Urine Urobilinogen (test code = 21325-1) 0.2 0.2-1 [facility] DallasUrine Kpzmlydvf3288-36-04 12:50:00* Test Item Value Reference Range Interpretation Comments Urine Bilirubin (test code = 1978-6) NEGATIVE NEGATIVE [facility] DallasUrine Undfz3215-18-38 12:50:00* Test Item Value Reference Range Interpretation Comments Urine Blood (test code = 57886-9) TRACE NEGATIVE H [facility] DallasUrine ZPP8572-94-88 12:50:00* Test Item Value Reference Range Interpretation Comments Urine WBC (test code = 5821-4) 0-5 0-5 [facility] DallasU[facility] HEZ1734-07-49 12:50:00* Test Item Value Reference Range Interpretation Comments Urine RBC (test code = 64529-8) 0-5 0-5 [facility] DallasUrine Plxdllle1997-89-91 12:50:00* Test Item Value Reference Range Interpretation Comments Urine Bacteria (test code = 74735-5) FEW NONE [facility] DallasU[facility] Epithelial Pbkba3513-92-83 12:50:00 * Test Item Value Reference Range Interpretation Comments Urine Epithelial Cells (test code = 59643-8) FEW NONE [facility] DallasUrine Ofbal5581-65-97 12:50:00* Test Item Value Reference Range Interpretation Comments Urine Color (test code = 5778-6) YELLOW YELLOW [facility] DallasUrine Asvojqp1039-08-50 12:50:00* Test Item Value Reference Range Interpretation Comments Urine Clarity (test code = 76573-4) HAZY CLEAR [facility] Specific Prgwmis2302-58-46 12:50:00 * Test Item Value Reference Range Interpretation Comments Urine Specific [place] (test code = 5811-5) 1.015 1.010-1.02 5 [facility] DallasUrine aM3302-42-25 12:50:00* Test Item Value Reference Range Interpretation Comments Urine pH (test code = 51988-9) 6 5-7 [facility] DallasU[facility] Leukocyte Wajpnool8373-61-54 12:50:00* Test Item Value Reference Range Interpretation Comments Urine Leukocyte Esterase (test code = 5799-2) NEGATIVE NEGATIVE [facility] DallasUrine Unapfsn5796-81-95 12:50:00* Test Item Value Reference Range Interpretation Comments Urine Nitrite (test code = 22685-1) NEGATIVE NEGATIVE [facility] DallasUrine Nywoyrc7400-59-84 12:50:00* Test Item Value Reference Range Interpretation Comments Urine Protein (test code = 5804-0) NEGATIVE NEGATIVE [facility] DallasUrine Glucose (UA)2018-08-28 12:50:00* Test Item Value Reference Range Interpretation Comments Urine Glucose (UA) (test code = 2349-9) NEGATIVE NEGATIVE [facility] DallasUrine Gtazuea1003-64-69 12:50:00* Test Item Value Reference Range Interpretation Comments Urine Ketones (test code = 98181-0) 1+ NEGATIVE H [facility] DallasUrine Raklvcrszint0780-42-64 12:50:00* Test Item Value Reference Range Interpretation Comments Urine Urobilinogen (test code = 69139-0) 0.2 0.2-1 [facility] DallasUrine Ybuzdjfwk7719-75-97 12:50:00* Test Item Value Reference Range Interpretation Comments Urine Bilirubin (test code = 1978-6) NEGATIVE NEGATIVE [facility] DallasUrine Wfvsi5507-64-20 12:50:00* Test Item Value Reference Range Interpretation Comments Urine Blood (test code = 14799-2) TRACE NEGATIVE H [facility] DallasUrine FFH5994-88-99 12:50:00* Test Item Value Reference Range Interpretation Comments Urine WBC (test code = 5821-4) 0-5 0-5 [facility] DallasUrine TJN2232-70-01 12:50:00* Test Item Value Reference Range Interpretation Comments Urine RBC (test code = 26445-6) 0-5 0-5 [facility] DallasUrine Jrffpvlv3828-82-16 12:50:00* Test Item Value Reference Range Interpretation Comments Urine Bacteria (test code = 37077-1) FEW NONE [facility] DallasUrine Epithelial Pdaiv9485-56-00 12:50:00 * Test Item Value Reference Range Interpretation Comments Urine Epithelial Cells (test code = 34212-9) FEW NONE [facility] DallasAmylase Twgeh2628-91-30 12:33:00* Test Item Value Reference Range Interpretation Comments Amylase Level (test code = 1798-8) 24 25-125 L [facility] DallasLipase2019-03-04 12:33:00* Test Item Value Reference Range Interpretation Comments Lipase (test code = 3040-3) < 4 8-78 L [facility] DallasAmylase Qhmbr4364-90-86 12:33:00* Test Item Value Reference Range Interpretation Comments Amylase Level (test code = 1798-8) 24 25-125 L [facility] DallasLipase2019-03-04 12:33:00* Test Item Value Reference Range Interpretation Comments Lipase (test code = 3040-3) < 4 8-78 [facility] 8ZA8391-31-16 11:08:00 [facility] [address] [place] [address] Patient Name: JARAD SHERMAN MR #: [id number] : 1930 Age/Sex: 87/M Req #: [id number] Adm Physician: Ordered by: JOHN VALDEZ [employer] Report #: [id number] Location: ER Room/Bed: Procedure: [id number] DX/SP LUMBAR, COMPLETE MIN 4VW Exam Date: [...] HIP LEFT 2-3 VW (+/- PELVIS)2018-07-09 11:02:00 [place] [address] Patient Name: JARAD SHERMAN MR #: [id number] : [birth year] Age/Sex: 87/M Req #: [id number] Adm Physician: Ordered by: JOHN VALDEZ NP Report #: [id number] Location: ER Room/Bed: Procedure: [id number] DX/HIP LEFT 2-3 VW (+/- PELVIS) Exam [...] on 07/09/18 1108 COPY TO: JOHN VALDEZ [employer] WORKER Sodium Xfqgh4763-51-35 07:36:00* Test Item Value Reference Range Interpretation Comments Sodium Level (test code = 2951-2) 136 136-145 [facility] DallasPotassium Bzsak4639-81-93 07:36:00* Test Item Value Reference Range Interpretation Comments Potassium Level (test code = 2823-3) 3.9 3.5-5.1 [facility] DallasChloride Dbwzt2396-36-05 07:36:00* Test Item Value Reference Range Interpretation Comments Chloride Level (test code = 2075-0) 103 98-107 [facility] DallasCarbon Dioxide Kiixe9165-83-54 07:36:00* Test Item Value Reference Range Interpretation Comments Carbon Dioxide Level (test code = 2028-9) 25 22-29 [facility] DallasAnion Qcp2943-77-27 07:36:00* Test Item Value Reference Range Interpretation Comments Anion Gap (test code = 71775-6) 11.9 8-16 [facility] DallasBlood Urea Jgqpfmou2439-54-70 07:36:00* Test Item Value Reference Range Interpretation Comments Blood Urea Nitrogen (test code = 3094-0) 10 7-26 [facility] DallasCreatinine2018-02-05 07:36:00* Test Item Value Reference Range Interpretation Comments Creatinine (test code = 2160-0) 0.80 0.72-1.25 [facility] DallasBUN/Creatinine Lpwpr3092-51-42 07:36:00* Test Item Value Reference Range Interpretation Comments BUN/Creatinine Ratio (test code = 3097-3) 13 6-25 [facility] DallasEstimat Glomerular Filtration Rate 2017-08-01 07:36:00* Test Item Value Reference Range Interpretation Comments Estimat Glomerular Filtration Rate (test code = 66235-0) 60- >60 Ranges were taken from the National Kidney Disease Education Program and the [facility] literature.Reference ranges:60 or greater: Qrgkym08-36 ( for 3 consecutive months): Chronic kidney disease 15 or less: Kidney failureTexas Health Presbyterian DallasGlucose Olffk2465-32-45 07:36:00* Test Item Value Reference Range Interpretation Comments Glucose Level (test code = KAI9805) 96 74-118 [facility] DallasCalcium Gfugn7607-32-89 07:36:00* Test Item Value Reference Range Interpretation Comments Calcium Level (test code = 08882-4) 8.6 8.4-10.2 [facility] DallasWhite Blood Ptist0563-38-37 07:18:00* Test Item Value Reference Range Interpretation Comments White Blood Count (test code = 6690-2) 10.56 4.8-10.8 [facility] DallasRed Blood Tqeim6731-01-07 07:18:00* Test Item Value Reference Range Interpretation Comments Red Blood Count (test code = 789-8) 4.16 4.3-5.7 L [facility] DallasHemoglobin2018-02-05 07:18:00* Test Item Value Reference Range Interpretation Comments Hemoglobin (test code = 44276-2) 12.5 14.0-18.0 L [facility]ematocrit2018-[facility] 07:18:00* Test Item Value Reference Range Interpretation Comments Hematocrit (test code = 4544-3) 39.1 38.2-49.6 [facility] DallasMean Corpuscular [id number] 07:18:00* Test Item Value Reference Range Interpretation Comments Mean Corpuscular Volume (test code = 787-2) 94.0 81-99 [facility]Mean Corpuscular Adwsiwyiva5823-85-95 07:18:00* Test Item Value Reference Range Interpretation Comments Mean Corpuscular Hemoglobin (test code = 785-6) 30.0 28-32 [facility] DallasMean Corpuscular Hemoglobin Concent 2017-08-01 07:18:00* Test Item Value Reference Range Interpretation Comments Mean Corpuscular Hemoglobin Concent (test code = 786-4) 32.0 31-35 [facility] DallasRed Cell Distribution [id number] 07:18:00* Test Item Value Reference Range Interpretation Comments Red Cell Distribution Width (test code = 65102-1) 14.6 11.7 -14.4 H [facility] DallasPlatelet Stjik6338-70-00 07:18:00* Test Item Value Reference Range Interpretation Comments Platelet Count (test code = 777-3) 243 140-360 [facility] DallasNeutrophils (%) (Auto)2017-08-01 07:18:00 * Test Item Value Reference Range Interpretation Comments Neutrophils (%) (Auto) (test code = 89053-1) 68.7 38.7-80.0 [facility] DallasLymphocytes (%) (Auto)2017-08-01 07:18:00 * Test Item Value Reference Range Interpretation Comments Lymphocytes (%) (Auto) (test code = 736-9) 18.2 18.0-39.1 [facility] DallasMonocytes (%) (Auto)2017-08-01 07:18:00* Test Item Value Reference Range Interpretation Comments Monocytes (%) (Auto) (test code = 5905-5) 11.0 4.4-11.3 [facility] DallasEosinophils (%) (Auto)2017-08-01 07:18:00 * Test Item Value Reference Range Interpretation Comments Eosinophils (%) (Auto) (test code = 713-8) 1.0 0.0-6.0 [facility] DallasBasophils (%) (Auto)2017-08-01 07:18:00* Test Item Value Reference Range Interpretation Comments Basophils (%) (Auto) (test code = 706-2) 0.5 0.0-1.0 [facility] DallasIM GRANULOCYTES %2017-08-01 07:18:00* Test Item Value Reference Range Interpretation Comments IM GRANULOCYTES % (test code = IM GRANULOCYTES %) 0.6 0.0- 1.0 [facility] DallasNeutrophils # (Auto)2017-08-01 07:18:00* Test Item Value Reference Range Interpretation Comments Neutrophils # (Auto) (test code = 751-8) 7.3 2.1-6.9 H [facility] DallasLymphocytes # (Auto)2017-08-01 07:18:00* Test Item Value Reference Range Interpretation Comments Lymphocytes # (Auto) (test code = 50936-7) 1.9 1.0-3.2 [facility] DallasMonocytes # (Auto)2017-08-01 07:18:00* Test Item Value Reference Range Interpretation Comments Monocytes # (Auto) (test code = 742-7) 1.2 0.2-0.8 H [facility] DallasEosinophils # (Auto)2017-08-01 07:18:00* Test Item Value Reference Range Interpretation Comments Eosinophils # (Auto) (test code = 711-2) 0.1 0.0-0.4 [facility] DallasBasophils # (Auto)2017-08-01 07:18:00* Test Item Value Reference Range Interpretation Comments Basophils # (Auto) (test code = 704-7) 0.1 0.0-0.1 [facility] DallasAbsolute Immature Granulocyte (auto 2017-08-01 07:18:00* Test Item Value Reference Range Interpretation Comments Absolute Immature Granulocyte (auto (jose antonio t code = Absolute Immature Granulocyte (auto) 0.06 0-0.1 [facility] DallasBlood Dltahve0503-63-12 19:43:00* Test Item Value Reference Range Interpretation Comments Blood Culture (test code = 33666031) NO GROWTH AFTER 48 HOURS [facility] DallasUrine [id number] 15:33:00* Test Item Value Reference Range Interpretation Comments Urine WBC (test code = 5821-4) NONE 0-5 [facility] DallasUrine [id number] 15:33:00* Test Item Value Reference Range Interpretation Comments Urine RBC (test code = 60726-6) NONE 0-5 [facility] DallasUrine Sivgplyg0722-70-92 15:33:00* Test Item Value Reference Range Interpretation Comments Urine Bacteria (test code = 74545-0) NONE NONE [facility] DallasUrine Epithelial Iqwsb3364-94-41 15:33:00 * Test Item Value Reference Range Interpretation Comments Urine Epithelial Cells (test code = 51482-4) NONE NONE [facility] DallasMagnesium Shgew8935-07-75 15:16:00* Test Item Value Reference Range Interpretation Comments Magnesium Level (test code = 77981-6) 2.1 1.3-2.1 [facility] DallasTotal Buhnyaxmt2822-45-07 15:16:00* Test Item Value Reference Range Interpretation Comments Total Bilirubin (test code = 1975-2) 0.7 0.2-1.2 [facility] DallasAspartate Amino Transf (AST/SGOT) 2017-07-29 15:16:00* Test Item Value Reference Range Interpretation Comments Aspartate Amino Transf (AST/SGOT) (test code = Aspartate Amino Transf (AST/SGOT)) 24 5-34 [facility] DallasAlanine Aminotransferase (ALT/SGPT) 2017-07-29 15:16:00* Test Item Value Reference Range Interpretation Comments Alanine Aminotransferase (ALT/SGPT) (test code = 1742-6) 16 0-55 [facility] DallasTotal Rcisqlx7083-39-13 15:16:00* Test Item Value Reference Range Interpretation Comments Total Protein (test code = 2885-2) 7.2 6.5-8.1 [facility] DallasAlbumin2018-02-02 15:16:00* Test Item Value Reference Range Interpretation Comments Albumin (test code = 1751-7) 3.6 3.5-5.0 [facility] DallasGlobulin2018-02-02 15:16:00* Test Item Value Reference Range Interpretation Comments Globulin (test code = 79108-7) 3.6 2.3-3.5 H [facility] DallasAlbumin/Globulin Jdltn6524-14-78 15:16:00 * Test Item Value Reference Range Interpretation Comments Albumin/Globulin Ratio (test code = 1759-0) 1.0 0.8-2.0 [facility] DallasAlkaline Txozkyqzswa9603-91-91 15:16:00* Test Item Value Reference Range Interpretation Comments Alkaline Phosphatase (test code = 6768-6) 70 40-150 [facility] DallasAmylase Twyuk8307-23-81 15:16:00* Test Item Value Reference Range Interpretation Comments Amylase Level (test code = 1798-8) 25 25-125 [facility] DallasLipase2018-02-02 15:16:00* Test Item Value Reference Range Interpretation Comments Lipase (test code = 3040-3) -4 8-78 L [facility] DallasUrine Ztmjf8037-36-11 15:14:00* Test Item Value Reference Range Interpretation Comments Urine Color (test code = 5778-6) YELLOW YELLOW [facility] DallasUrine Pftyive8990-22-55 15:14:00* Test Item Value Reference Range Interpretation Comments Urine Clarity (test code = 67644-6) SL CLOUDY CLEAR H [facility] DallasUrine Specific Eqrmlpu7754-64-11 15:14:00 * Test Item Value Reference Range Interpretation Comments Urine Specific [place] (test code = 5811-5) 1.015 1.010-1.02 5 [facility] DallasUrine [id number] 15:14:00* Test Item Value Reference Range Interpretation Comments Urine pH (test code = 84376-6) 7 5-7 [facility] DallasU[facility] Leukocyte Dyqbzmfr4494-75-30 15:14:00* Test Item Value Reference Range Interpretation Comments Urine Leukocyte Esterase (test code = 5799-2) NEGATIVE NEGATIVE [facility] DallasUrine Hgyahdg6066-97-09 15:14:00* Test Item Value Reference Range Interpretation Comments Urine Nitrite (test code = 61524-0) NEGATIVE NEGATIVE [facility] DallasUrine Xcjzmcz1250-41-92 15:14:00* Test Item Value Reference Range Interpretation Comments Urine Protein (test code = 5804-0) NEGATIVE NEGATIVE [facility] DallasUrine Glucose (UA)2017-07-29 15:14:00* Test Item Value Reference Range Interpretation Comments Urine Glucose (UA) (test code = 2349-9) NEGATIVE NEGATIVE [facility] DallasUrine Aklpdlr9692-58-18 15:14:00* Test Item Value Reference Range Interpretation Comments Urine Ketones (test code = 92452-8) NEGATIVE NEGATIVE [facility] DallasUrine Wzthxshrbabj1787-32-01 15:14:00* Test Item Value Reference Range Interpretation Comments Urine Urobilinogen (test code = 81765-7) 0.2 0.2-1 [facility] DallasUrine Ngsngrasl6502-03-29 15:14:00* Test Item Value Reference Range Interpretation Comments Urine Bilirubin (test code = 1978-6) NEGATIVE NEGATIVE [facility] DallasUrine [id number] 15:14:00* Test Item Value Reference Range Interpretation Comments Urine Blood (test code = 71028-5) TRACE NEGATIVE H [facility] DallasProthrombin [id number] 16:18:00* Test Item Value Reference Range Interpretation Comments Prothrombin Time (test code = 5902-2) 12.6 11.9-14.5 [facility] DallasProthromb Time International Ratio 2017-02-01 16:18:00* Test Item Value Reference Range Interpretation Comments Prothromb Time International Ratio (test code = 6301-6) 0.90 Oral Anticoagulant Therapy INR Values:1. Low Intensity Therapy 1.5 - 2.02 . Moderate Intensity Therapy 2.0 - 3.03. High Intensity Therapy(1) 2.5 - 3. 54. High Intensity Therapy(2) 3.0 - 4.05. Panic Value INR > 5.0 [facility] DallasActivated Partial Thromboplast Time 2017-02-01 16:18:00* Test Item Value Reference Range Interpretation Comments Activated Partial Thromboplast Time (test code = 17583-6) 28.5 23.8-35.5 [facility] DallasCT [facility]BDOM[facility]PELVIS W [facility] [address] [address] Patient Name: JARAD SHERMAN MR #: [id number] : 1930 Age/Sex: 87/M Req #: [id number] Adm Physician: Ordered by: SHERIDAN ARELLANO Report #: [id number] Location: ER Room/Bed: Procedure: [id number] CT/CT ABDOMEN/PELVIS W Exam Date: 07/29/17 Exam [...] and sagittal multiplanar reformations were obtained. COMPARISON: [facility], CT, CT ABDOMEN/PELVIS W, 03/22/2014, 18:53. INDICATI [...] nically Signed By: JESUS BROWN MD on 07/29/171614 Transcribed By: ROYA on 07/29/17 161 COPY TO: SHERIDAN ARELLANO PA FOOT RIGHT [place] [address] Patient Name: JARAD SHERMAN MR #: [id number] : 1930 Age/Sex: 86/M Req #: [id number] Adm Physician: Ordered by: JULIO COE MD Report #: [id number] Location: ER Room/ Bed: Procedure: [id number] DX/FOOT RIGHT COMPLETE Exa m Date: 05/22/17 Exam Time: 1445 REPORT STATUS: Signed Exam: Right foot 3 views History: Pain Comparison: Non e. Findings: No fracture or malalignment. Joint spaces preserved. Plantar calcaneal spurs. Impression: No acute osseous abnormality Plantar calcaneal spurs. Signed by: Dr. Jonathan Remy M.D. on 05/22/2017 3:04 PM Dictated By: JONATHAN REMY MD 1504 Transcribed By: SIXTO on 05/22/17 150 COPY T O: JULIO COE MD
--- NOTE | 2020-02-24 13:23 | Emergency Department Note ---
History of Present Illnes History of Present Illness Chief Complaint: Hypertension History of Present Illness This is a 89 year old male arrived to the ED with concerns of high b lood pressure, pt states he was reading that his pulmonary fibrosis medication may cause his blood pressure to go up so he only took 1/2 the dose today but then noticed his blood pressure was high. Pt denies any complaints but just wants his blood pressure to go down. Historian: Patient Arrival Mode: Car Onset (how long ago): day(s) Severity: mild Duration (how long): day(s) Timing of current episode: intermittent Progression: waxing and waning Chronicity: recurrent Relieving factors: none Exacerbating factors: none Associated symptoms: Reports denies other symptoms; Denies chest pain, Denies nausea/vomiting Past Medical/Family History Physician Review I have reviewed the patient's past medical and family history. Any updates have been documented here. Past Medical History Recent Fever: No Clinical Suspicion of Infectio: No New/Unexplained Change in Ment: No Past Medical History: None Other Medical History: PULMONARY FIBROSIS BPH HEMMORROIDS Past Surgical History: Back Surgery Other Surgery: INGUINAL HERNIA BACK SX NECK SX Social History Physically hurt or threatened: No Other Last Tetanus: UTD Review of Systems Review of Systems Constitutional: Reports no symptoms EENTM: Reports no symptoms Cardiovascular: Reports no symptoms Respiratory: Reports no symptoms Gastrointestinal: Reports no symptoms Genitourinary: Reports no symptoms Musculoskeletal: Reports no symptoms Integumentary: Reports no symptoms Neurological: Reports no symptoms Psychological: Reports no symptoms Endocrine: Reports no symptoms Hematological/Lymphatic: Reports no symptoms Physical Exam Related Data Allergies: Coded Allergies: codeine (Verified Allergy, Mild, Nausea, 08/28/18) Triage Vital Signs Vital Signs Date Time Temp Pulse Resp B/P (MAP) Pulse Ox O2 Delivery O2 Flow Rate FiO2 02/24/20 12:12 98.3 69 15 159/82 98 Room Air Vital signs reviewed: Yes Physical Exam CONSTITUTIONAL Constitutional: Present well-developed, Present well-nourished HENT HENT: Present normocephalic, Present atraumatic, Present oropharynx clear/moist, Present nose normal HENT L/R: Present left ext ear normal, Present right ext ear normal EYES Eyes: Reports PERRL, Reports conjunctivae normal NECK Neck: Present ROM normal PULMONARY Pulmonary: Present effort normal, Present breath sounds normal CARDIOVASCULAR Cardiovascular: Present regular rhythm, Present heart sounds normal, Present capillary refill normal, Present normal rate GASTROINTESTINAL Abdominal: Present soft, Present nontender, Present bowel sounds normal GENITOURINARY Genitourinary: Present exam deferred SKIN Skin: Present warm, Present dry MUSCULOSKELETAL Musculoskeletal: Present ROM normal NEUROLOGICAL Neurological: Present alert, Present oriented x 3, Present no gross motor or sensory deficits PSYCHOLOGICAL Psychological: Present mood/affect normal, Present judgement normal Assessment & Plan Medical Decision Making MDM 89 yo M arrived to the ED with complaints of high blood pressure, denies any complaints. BP improved with clonidine, encouraged pt to take complete tablet of GEE/HCTZ combination for tighter BP control. Assessment & Plan Final Impression: (1) Hypertension Depart Disposition: HOME, SELF-CARE Last Vital Signs Date Time Temp Pulse Resp B/P (MAP) Pulse Ox O2 Delivery O2 Flow Rate FiO2 02/24/20 12:28 142/87 02/24/20 12:12 98.3 69 15 98 Room Air Home Meds Reported Medications Lisinopril/Hydrochlorothiazide (LISINOPRIL-HCTZ 20-12.5 MG TAB) 1 Each Tablet 02/24/20 [ofev] No Conflict Check 02/24/20 Tramadol Hcl (ULTRAM) 50 Mg Tablet, 50 MG PO TID PRN for Mild Pain (1-3) or Fever>100.8, #30 TAB 11/17/19 [Allergy Pill ] No Conflict Check, 160 MG PO DAILY 11/07/19 Guaifenesin (MUCINEX) 600 Mg Tablet.er, 600 MG PO HS, TAB 11/07/19 [Alive Mens Gummy] No Conflict Check, 1 TAB PO DAILY 11/07/19 Tamsulosin Hcl* (FLOMAX*) 0.4 Mg Cap, 0.4 MG PO DAILY, #30 CAP 02/18/14 Medications in the ED Acetaminophen/ Butalbital/ Caffeine 1 ea ONCE ONCE PO Last administered on 02/24/20at 12:30; Admin Dose 1 EA; Start 02/24/20 at 12:30; Stop 02/24/20 at 12:36; Status DC Clonidine HCl 0.1 mg ONCE ONCE PO Last administered on 02/24/20at 12:28; Admin Dose 0.1 MG; Start 02/24/20 at 12:30; Stop 02/24/20 at 12:36; Status DC ALLYSON DEAN, Feb 24, 2020 13:22
[2020-02-24 14:03] VITALS: BP 150/73
--- NOTE | 2020-02-24 14:09 | NUR ---
Discussed pts discharge instructions with Omar Ortega (SON) regarding medication management.
== END 2020-02-24 14:35 | disposition home or self-care (01) ==
LOC: ER 12:59
DX: I10 Essential (primary) hypertension (principal); J84.10 Pulmonary fibrosis, unspecified
CPT/HCPCS: 99284

== ENCOUNTER 2020-03-16 11:32 | Emergency (ER) | payer MEDICARE, BC ==
[~2020-03-16] VITALS: Ht 182.9 cm; Wt 81.6 kg
[~2020-03-16 11:32] MED LIST changes: +LISINOPRIL-HCT1 EACH; +OFEV
[2020-03-16] MEDS ORDERED: CEFTRIAXONE SOD 1 GM/NS 50 ML 50 ML IV SCH (11:45)
[2020-03-16 12:08] LABS: BASOPHILS % 0.3 % (0.0-1.0); EOSINOPHILS % 0.4 % (0.0-6.0); HEMATOCRIT 43.5 % (38.2-49.6); HEMOGLOBIN 14.3 g/dL (14.0-18.0); LYMPHOCYTES # (AUTO) 3.3 (1.0-3.2); LYMPHOCYTES % 31.1 % (18.0-39.1); MEAN CORPUSCULAR HEMOGLOBIN 31.4 pg (28-32); MEAN CORPUSCULAR HGB CONC 32.9 g/dL (31-35); MEAN CORPUSCULAR VOLUME 95.4 fL (81-99); MONOCYTES # (AUTO) 0.8 (0.2-0.8); MONOCYTES % 7.4 % (4.4-11.3); NEUTROPHILS # (AUTO) 6.4 (2.1-6.9); NEUTROPHILS % 60.3 % (38.7-80.0); PLATELET COUNT 241 x10e3/uL (140-360); RED BLOOD COUNT 4.56 x10e6/uL (4.3-5.7); RED CELL DISTRIBUTION WIDTH 16.4 % (11.7-14.4)
[2020-03-16 12:23] LABS: INR 0.99; PARTIAL THROMBOPLASTIN TIME 28.3 seconds (23.8-35.5); PROTHROMBIN TIME 13.6 seconds (11.9-14.5)
[2020-03-16] MEDS ORDERED: AZITHROMYCIN 500MG/NS 250 ML 250 ML IV SCH (12:30)
[2020-03-16 12:34] LABS: ALANINE AMINOTRANSFERASE 16 IU/L (0-55); ALBUMIN 4.1 g/dL (3.5-5.0); ALBUMIN/GLOBULIN RATIO 1.5 (0.8-2.0); ALKALINE PHOSPHATASE 56 IU/L (40-150); ANION GAP 15.8 mmol/L (8-16); BLOOD UREA NITROGEN 16 mg/dL (7-26); BUN/CREATININE RATIO 19 (6-25); CALCIUM 8.9 mg/dL (8.4-10.2); CARBON DIOXIDE 25 mmol/L (22-29); CHLORIDE 99 mmol/L (98-107); CREATINE KINASE 35 IU/L (30-200); CREATININE, SERUM 0.84 mg/dL (0.72-1.25); EST GLOMERULAR FILTRATION RATE > 60 ML/MIN (60-); GLUCOSE 115 mg/dL (74-118); POTASSIUM 3.8 mmol/L (3.5-5.1); SODIUM 136 mmol/L (136-145)
--- NOTE | 2020-03-16 12:55 | Diagnostic Imaging Report ---
EXAMINATION: CHEST SINGLE (PORTABLE) INDICATION: CP/SOB COMPARISON: Multiple prior chest x-ray examinations most recent dated 11/09/2019. FINDINGS: AP view TUBES and LINES: None. . LUNGS/PLEURA: Chronic interstitial changes are unchanged. There are new bibasilar opacities which could be due to combination of effusion or atelectasis. There is no pleural effusion or pneumothorax. HEART AND MEDIASTINUM: The cardiomediastinal silhouette is unremarkable. BONES AND SOFT TISSUES: No acute osseous lesion. Soft tissues are unremarkable. UPPER ABDOMEN: No free air under the diaphragm. IMPRESSION: Chronic interstitial changes are unchanged. New bibasilar opacities which could be due to combination of effusion or atelectasis. Superimposed pneumonia could be considered in the appropriate clinical setting. Signed by: Eddy Turner MD on 03/16/2020 12:52 PM
--- NOTE | 2020-03-16 13:33 | Emergency Department Note ---
History of Present Illnes History of Present Illness Chief Complaint: Respiratory History of Present Illness This is a 89 year old male PT CAME IN POV WITH C/O SHORTNESS OF BREATH, PT STATES THAT HE HAS PULMONARY FIBROSIS AND HE TOLD RN HE'S BEEN FEELING SOB FOR 3 DAYS, TELLS ME "THE TRUTH IS...WITH THE STORM COMING I JUST WANTED TO GET CHECKED OUT IN CASE I COULDN'T GET OUT FOR A FEW DAYS", INITIAL O2 SAT ON ROOM AIR AT 100%. Historian: Patient Arrival Mode: Car Patch Driller Required: No Onset (how long ago): year(s) Radiation: Reports non-radiation Severity: mild Onset quality: gradual Timing of current episode: constant Chronicity: chronic Relieving factors: none Exacerbating factors: none Associated symptoms: Reports cough (MILD NON-PRODUCTIVE) Past Medical/Family History Physician Review I have reviewed the patient's past medical and family history. Any updates have been documented here. Past Medical History Recent Fever: No Clinical Suspicion of Infectio: No New/Unexplained Change in Ment: No Past Medical History: Hypertension Other Medical History: BPH, PULMONARY FIBROSIS Past Surgical History: Back Surgery Other Surgery: PROSTATE SURGERY 1 MONTH AGO Social History Smoking Cessation: Never Smoker Counseling Performed: No Alcohol Use: None Any Illegal Drug Use: No TB Exposure/Symptoms: No Physically hurt or threatened: No Family History Family history of heart diseas: No Other Last Tetanus: UTD Any Pre-Existing Lines (PICC,: No Review of Systems Review of Systems Constitutional: Reports no symptoms EENTM: Reports no symptoms Cardiovascular: Reports no symptoms; Denies chest pain Respiratory: Reports as per HPI Gastrointestinal: Reports no symptoms Genitourinary: Reports no symptoms Musculoskeletal: Reports no symptoms Integumentary: Reports no symptoms Neurological: Reports no symptoms Psychological: Reports no symptoms Endocrine: Reports no symptoms Hematological/Lymphatic: Reports no symptoms Physical Exam Related Data Allergies: Coded Allergies: codeine (Verified Allergy, Mild, Nausea, 08/28/18) Triage Vital Signs Vital Signs Date Time Temp Pulse Resp B/P (MAP) Pulse Ox O2 Delivery O2 Flow Rate FiO2 03/16/20 11:36 97.8 83 17 171/85 100 Room Air Vital signs reviewed: Yes Physical Exam CONSTITUTIONAL Constitutional: Present well-developed, Present well-nourished HENT HENT: Present normocephalic, Present atraumatic, Present oropharynx clear/moist, Present nose normal HENT L/R: Present left ext ear normal, Present right ext ear normal EYES Eyes: Reports PERRL, Reports conjunctivae normal NECK Neck: Present ROM normal PULMONARY Pulmonary: Present effort normal, Present other (DIFFUSE DRY CRACKLES 1/2 WAY UP BILAT); Absent respiratory distress, Absent rhonchi CARDIOVASCULAR Cardiovascular: Present regular rhythm, Present heart sounds normal, Present capillary refill normal, Present normal rate GASTROINTESTINAL Abdominal: Present soft, Present nontender, Present bowel sounds normal GENITOURINARY Genitourinary: Present exam deferred SKIN Skin: Present warm, Present dry MUSCULOSKELETAL Musculoskeletal: Present ROM normal NEUROLOGICAL Neurological: Present alert, Present oriented x 3, Present no gross motor or sensory deficits PSYCHOLOGICAL Psychological: Present mood/affect normal, Present judgement normal Results Laboratory Result Diagram: 03/16/20 1141 03/16/20 1141 Laboratory Laboratory Tests Test 03/16/20 12:10 03/16/20 11:41 White Blood Count 10.64 x10e3/uL (4.8-10.8) Red Blood Count 4.56 x10e6/uL (4.3-5.7) Hemoglobin 14.3 g/dL (14.0-18.0) Hematocrit 43.5 % (38.2-49.6) Mean Corpuscular Volume 95.4 fL (81-99) Mean Corpuscular Hemoglobin 31.4 pg (28-32) Mean Corpuscular Hemoglobin Concent 32.9 g/dL (31-35) Red Cell Distribution Width 16.4 % (11.7-14.4) Platelet Count 241 x10e3/uL (140-360) Neutrophils (%) (Auto) 60.3 % (38.7-80.0) Lymphocytes (%) (Auto) 31.1 % (18.0-39.1) Monocytes (%) (Auto) 7.4 % (4.4-11.3) Eosinophils (%) (Auto) 0.4 % (0.0-6.0) Basophils (%) (Auto) 0.3 % (0.0-1.0) Neutrophils # (Auto) 6.4 (2.1-6.9) Lymphocytes # (Auto) 3.3 (1.0-3.2) Monocytes # (Auto) 0.8 (0.2-0.8) Eosinophils # (Auto) 0.0 (0.0-0.4) Basophils # (Auto) 0.0 (0.0-0.1) Absolute Immature Granulocyte (auto 0.05 x10e3/uL (0-0.1) Prothrombin Time 13.6 seconds (11.9-14.5) Prothromb Time International Ratio 0.99 Activated Partial Thromboplast Time 28.3 seconds (23.8-35.5) Sodium Level 136 mmol/L (136-145) Potassium Level 3.8 mmol/L (3.5-5.1) Chloride Level 99 mmol/L (98-107) Carbon Dioxide Level 25 mmol/L (22-29) Anion Gap 15.8 mmol/L (8-16) Blood Urea Nitrogen 16 mg/dL (7-26) Creatinine 0.84 mg/dL (0.72-1.25) Estimat Glomerular Filtration Rate > 60 ML/MIN (60-) BUN/Creatinine Ratio 19 (6-25) Glucose Level 115 mg/dL (74-118) Calcium Level 8.9 mg/dL (8.4-10.2) Total Bilirubin 0.6 mg/dL (0.2-1.2) Aspartate Amino Transf (AST/SGOT) 19 IU/L (5-34) Alanine Aminotransferase (ALT/SGPT) 16 IU/L (0-55) Alkaline Phosphatase 56 IU/L (40-150) Creatine Kinase 35 IU/L (30-200) Creatine Kinase MB 1.70 ng/mL (0-5.0) Troponin I 0.008 ng/mL (0-0.300) B-Type Natriuretic Peptide 32.3 pg/mL (0-100) Total Protein 6.8 g/dL (6.5-8.1) Albumin 4.1 g/dL (3.5-5.0) Globulin 2.7 g/dL (2.3-3.5) Albumin/Globulin Ratio 1.5 (0.8-2.0) Lab results reviewed: Yes Imaging Imaging results reviewed: Yes Imaging Comments I REVIEW XRAY AND PRIORS - NO EVID FOR PNEUMONIA Procedures 12 Lead ECG Interpretation ECG Interpretation : ECG: ECG 1 Patch Driller: Interpreted by ED physician Date: Mar 16, 2020 Time: 11:38 Rhythm: sinus rhythm Ectopy: atrial premature contractions Rate: normal (78) QRS axis: normal ST segments normal: Yes T waves normal: Yes Clinical Impression: normal ECG Assessment & Plan Medical Decision Making MDM CBC, CHEM, CARDIACS, ECG, CXR - R/O STEMI/NSTEMI, CHF, RENAL INSUFF, PNEUMONIA/BRONCHITIS Reassessment Reassessment DC HOME, YOLETTE, F/U PCP Assessment & Plan Final Impression: (1) Bronchitis (2) Pulmonary fibrosis Depart Disposition: HOME, SELF-CARE Last Vital Signs Date Time Temp Pulse Resp B/P (MAP) Pulse Ox O2 Delivery O2 Flow Rate FiO2 03/16/20 12:34 98.1 65 16 151/97 99 Room Air Home Meds Reported Medications Lisinopril/Hydrochlorothiazide (LISINOPRIL-HCTZ 20-12.5 MG TAB) 1 Each Tablet 02/24/20 [ofev] No Conflict Check 02/24/20 Tramadol Hcl (ULTRAM) 50 Mg Tablet, 50 MG PO TID PRN for Mild Pain (1-3) or Fever>100.8, #30 TAB 11/17/19 [Allergy Pill ] No Conflict Check, 160 MG PO DAILY 11/07/19 Guaifenesin (MUCINEX) 600 Mg Tablet.er, 600 MG PO HS, TAB 11/07/19 [Alive Mens Gummy] No Conflict Check, 1 TAB PO DAILY 11/07/19 Tamsulosin Hcl* (FLOMAX*) 0.4 Mg Cap, 0.4 MG PO DAILY, #30 CAP 02/18/14 Medications in the ED Ceftriaxone Sodium 50 ml @ 100 mls/hr Q24H IV Last administered on 03/16/20at 12:15; Admin Dose 100 MLS/HR; Start 03/16/20 at 11:45; Stop 03/23/20 at 11:44 Azithromycin 250 ml @ 200 mls/hr Q24H IV Last administered on 03/16/20at 12:33; Admin Dose 200 MLS/HR; Start 03/16/20 at 12:30; Stop 03/23/20 at 12:29 MONICA BRENNER MD Mar 16, 2020 13:33
== END 2020-03-16 14:04 | disposition home or self-care (01) ==
LOC: ER 11:52
DX: R06.02 Shortness of breath (principal); J40 Bronchitis, not specified as acute or chronic; J84.10 Pulmonary fibrosis, unspecified
CPT/HCPCS: 36415; 71045; 80053; 82550; 82553; 83880; 84484; 85025; 85610; 85730; 87040; 93005; 99284; J0456; J0696; U0002

== ENCOUNTER 2021-01-27 08:11 | Emergency (ER) | payer MEDICARE, BC ==
[~2021-01-27] VITALS: Ht 182.9 cm; Wt 86.2 kg
[2021-01-27] MEDS ORDERED: PROBIOTIC & AC1 EACH PO (08:39)
[2021-01-27] MEDS ORDERED: FLOMAX0.4 MG PO (08:39)
[2021-01-27] MEDS ORDERED: CEFDINIR300 MG PO (08:39)
[2021-01-27 09:00] VITALS: BP 114/78
== END 2021-01-27 09:00 | disposition home or self-care (01) ==
LOC: FSED 08:19
DX: R33.9 Retention of urine, unspecified (principal); N30.91 Cystitis, unspecified with hematuria; N41.0 Acute prostatitis; I10 Essential (primary) hypertension; Z87.09 Personal history of other diseases of the respiratory system
CPT/HCPCS: 51700; 81003; 87086; 99283

== ENCOUNTER 2021-01-28 15:13 | Emergency (ER) | payer MEDICARE, BC ==
[~2021-01-28] VITALS: Ht 208.3 cm; Wt 81.6 kg
[~2021-01-28 15:13] MED LIST changes: +CEFDINIR300 MG PO; +PROBIOTIC & AC1 EACH PO
== END 2021-01-28 16:05 | disposition home or self-care (01) ==
LOC: FSED 15:52
DX: R33.9 Retention of urine, unspecified (principal); N30.91 Cystitis, unspecified with hematuria; N40.1 Benign prostatic hyperplasia with lower urinary tract symptoms; I10 Essential (primary) hypertension; J44.9 Chronic obstructive pulmonary disease, unspecified
CPT/HCPCS: 51700; 99283

== ENCOUNTER 2021-02-25 07:43 | Inpatient (IN) | payer MEDICARE, BC ==
[2021-02-23 13:58] LABS: BASOPHILS % 0.3 % (0.0-1.0); EOSINOPHILS % 0.1 % (0.0-6.0); HEMATOCRIT 45.9 % (38.2-49.6); HEMOGLOBIN 14.9 g/dL (14.0-18.0); LYMPHOCYTES # (AUTO) 1.7 (1.0-3.2); LYMPHOCYTES % 12.1 % (18.0-39.1); MEAN CORPUSCULAR HEMOGLOBIN 31.6 pg (28-32); MEAN CORPUSCULAR HGB CONC 32.5 g/dL (31-35); MEAN CORPUSCULAR VOLUME 97.2 fL (81-99); MONOCYTES # (AUTO) 1.1 (0.2-0.8); MONOCYTES % 7.7 % (4.4-11.3); NEUTROPHILS % 78.7 % (38.7-80.0); PLATELET COUNT 211 x10e3/uL (140-360); RED BLOOD COUNT 4.72 x10e6/uL (4.3-5.7); RED CELL DISTRIBUTION WIDTH 14.6 % (11.7-14.4)
[2021-02-23 14:13] LABS: ANION GAP 17.3 mmol/L (8-16); CREATININE, SERUM 0.76 mg/dL (0.72-1.25); POTASSIUM 4.3 mmol/L (3.5-5.1)
[~2021-02-25] VITALS: Ht 182.9 cm; Wt 87.1 kg
[~2021-02-25 07:43] MED LIST changes: +ALBUTEROL0.63 MG/3 NEB; +BREO ELLIPTA 11 EACH INH; +CEFTRIAXONE 1 GM VIAL ONE; +GENTAMICIN 80MG/NS 100 ML 200 ML IV ONE; +NAC600 MG PO; +SODIUM CHLORIDE 0.9% 50ML 50 ML ONE; +SUCRALFATE1 GM PO
[2021-02-25] MEDS ORDERED: ACETAMINOPHEN 1000 MG/100 ML IV PRN (10:15)
[2021-02-25] MEDS ORDERED: B&O 60MG R/S 60 MG SUPP PR PRN (10:15)
[2021-02-25] MEDS ORDERED: PHENAZOPYRIDINE HCL 100 MG TAB PO PRN (10:15)
[2021-02-25] MEDS ORDERED: DIPHENHYDRAMINE HCL 25 MG CAP PO PRN (10:15)
[2021-02-25] MEDS ORDERED: ONDANSETRON HCL INJ 2MG/ML 2ML 2 MG/ML VIAL IV PRN (10:15)
[2021-02-25] MEDS ORDERED: FENTANYL CITRATE/PF 100MCG/2 ML INJ ONE (10:29)
[2021-02-25 10:44] LABS: BASOPHILS # (AUTO) 0.1 (0.0-0.1); BASOPHILS % 0.4 % (0.0-1.0); EOSINOPHILS % 0.1 % (0.0-6.0); HEMATOCRIT 43.1 % (38.2-49.6); HEMOGLOBIN 13.8 g/dL (14.0-18.0); LYMPHOCYTES # (AUTO) 1.9 (1.0-3.2); MEAN CORPUSCULAR HEMOGLOBIN 31.5 pg (28-32); MEAN CORPUSCULAR VOLUME 98.4 fL (81-99); MONOCYTES # (AUTO) 0.7 (0.2-0.8); MONOCYTES % 5.4 % (4.4-11.3); NEUTROPHILS # (AUTO) 10.6 (2.1-6.9); NEUTROPHILS % 78.3 % (38.7-80.0); PLATELET COUNT 157 x10e3/uL (140-360); RED BLOOD COUNT 4.38 x10e6/uL (4.3-5.7); RED CELL DISTRIBUTION WIDTH 14.6 % (11.7-14.4)
[2021-02-25] MEDS: SODIUM CHLORIDE 0.9% 1000ML 1,000 ML IV SCH (11:19)
[2021-02-25 11:49] VITALS: BP 145/88
[2021-02-25 12:04] LABS: ANION GAP 19.3 mmol/L (8-16); CALCIUM 8.1 mg/dL (8.4-10.2); CREATININE, SERUM 0.73 mg/dL (0.72-1.25); POTASSIUM 3.3 mmol/L (3.5-5.1)
[2021-02-25] MEDS: TRAMADOL HCL 50 MG TAB PO PRN ×2 (12:58→20:38)
[2021-02-25] MEDS ORDERED: TAMSULOSIN HCL 0.4 MG CAP PO SCH (13:00)
[2021-02-25] MEDS: ALBUTEROL SULF 0.083% NEB SOLN 3 ML NEB NEB PRN (13:48)
[2021-02-25] MEDS ORDERED: CEPACOL SORE THROAT LOZENGES PO PRN (15:15)
[2021-02-25 15:32] VITALS: BP 142/79
[2021-02-25] MEDS: SUCRALFATE 1 GM TAB PO SCH (16:50)
[2021-02-25] MEDS ORDERED: DOCUSATE SODIUM 100 MG CAP PO SCH (17:00)
[2021-02-25 20:00] VITALS: BP 149/82
[2021-02-25 20:06] VITALS: BP 149/82
[2021-02-25] MEDS: DOCUSATE SODIUM 100 MG CAP PO SCH (20:34)
[2021-02-25] MEDS: TAMSULOSIN HCL 0.4 MG CAP PO SCH (20:36)
[2021-02-25] MEDS: GUAIFENESIN 600 MG TAB PO SCH (20:36)
[2021-02-26] VITALS (8 sets, daily range): BP systolic 117–179; BP diastolic 63–99
[2021-02-26] MEDS: SODIUM CHLORIDE 0.9% 1000ML 1,000 ML IV SCH (04:21)
[2021-02-26] MEDS ORDERED: HYDRALAZINE HCL 20 MG/ML VIAL IV PRN (05:15)
[2021-02-26 06:15] LABS: BASOPHILS % 0.1 % (0.0-1.0); HEMATOCRIT 41.3 % (38.2-49.6); HEMOGLOBIN 13.8 g/dL (14.0-18.0); LYMPHOCYTES # (AUTO) 1.6 (1.0-3.2); LYMPHOCYTES % 11.4 % (18.0-39.1); MEAN CORPUSCULAR HGB CONC 33.4 g/dL (31-35); MEAN CORPUSCULAR VOLUME 95.8 fL (81-99); MONOCYTES % 7.2 % (4.4-11.3); NEUTROPHILS # (AUTO) 11.3 (2.1-6.9); NEUTROPHILS % 79.9 % (38.7-80.0); PLATELET COUNT 206 x10e3/uL (140-360); RED BLOOD COUNT 4.31 x10e6/uL (4.3-5.7); RED CELL DISTRIBUTION WIDTH 14.5 % (11.7-14.4)
[2021-02-26] MEDS: ALBUTEROL SULF 0.083% NEB SOLN 3 ML NEB NEB PRN (06:55)
[2021-02-26 07:09] LABS: ALBUMIN 2.8 g/dL (3.5-5.0); ALBUMIN/GLOBULIN RATIO 1.1 (0.8-2.0); ANION GAP 13.1 mmol/L (8-16); CALCIUM 7.7 mg/dL (8.4-10.2); CREATININE, SERUM 0.7 mg/dL (0.72-1.25); MAGNESIUM 1.9 MG/DL (1.3-2.1); POTASSIUM 4.1 mmol/L (3.5-5.1)
[2021-02-26] MEDS: SUCRALFATE 1 GM TAB PO SCH ×2 (09:00→17:04)
[2021-02-26] MEDS: ACETYLCYSTEINE 1000 MG PO SCH (09:00)
[2021-02-26] MEDS: GUAIFENESIN 600 MG TAB PO SCH ×2 (09:00→20:47)
[2021-02-26] MEDS: NON-FORMULARY MEDICATION (Fluticasone/Vilanterol (Breo Ellipta 100-25 Mcg INH) 1 INH) INH SCH (09:00)
[2021-02-26] MEDS: TAMSULOSIN HCL 0.4 MG CAP PO SCH ×2 (09:00→20:47)
[2021-02-26] MEDS: DOCUSATE SODIUM 100 MG CAP PO SCH ×2 (09:00→20:43)
[2021-02-26] MEDS ORDERED: CEFTRIAXONE 1 GM in SODIUM CHLORIDE 0.9% 50ML 50 ML IV SCH (09:00)
[2021-02-26] MEDS ORDERED: NEOMYCIN/POLYMYX/BACITR OINT 0.9 GM PKT TOP PRN (10:00)
[2021-02-26] MEDS: CEFTRIAXONE 1 GM in SODIUM CHLORIDE 0.9% 50ML 50 ML IV SCH (10:00)
[2021-02-26] MEDS: TRAMADOL HCL 50 MG TAB PO PRN (12:56)
[2021-02-27] VITALS: BP 154/79
[2021-02-27] MEDS: SODIUM CHLORIDE 0.9% 1000ML 1,000 ML IV SCH (01:56)
[2021-02-27 04:00] VITALS: BP 172/95
[2021-02-27 06:28] LABS: BASOPHILS # (AUTO) 0.1 (0.0-0.1); BASOPHILS % 0.4 % (0.0-1.0); EOSINOPHILS % 0.2 % (0.0-6.0); HEMATOCRIT 43.1 % (38.2-49.6); HEMOGLOBIN 13.9 g/dL (14.0-18.0); LYMPHOCYTES # (AUTO) 1.6 (1.0-3.2); LYMPHOCYTES % 12.5 % (18.0-39.1); MEAN CORPUSCULAR HEMOGLOBIN 31.1 pg (28-32); MEAN CORPUSCULAR HGB CONC 32.3 g/dL (31-35); MEAN CORPUSCULAR VOLUME 96.4 fL (81-99); MONOCYTES # (AUTO) 1.1 (0.2-0.8); MONOCYTES % 8.3 % (4.4-11.3); NEUTROPHILS # (AUTO) 9.9 (2.1-6.9); PLATELET COUNT 141 x10e3/uL (140-360); RED BLOOD COUNT 4.47 x10e6/uL (4.3-5.7); RED CELL DISTRIBUTION WIDTH 14.6 % (11.7-14.4)
[2021-02-27 07:05] LABS: ALBUMIN 2.7 g/dL (3.5-5.0); ALBUMIN/GLOBULIN RATIO 1.1 (0.8-2.0); ANION GAP 13.1 mmol/L (8-16); CALCIUM 7.7 mg/dL (8.4-10.2); CREATININE, SERUM 0.65 mg/dL (0.72-1.25); POTASSIUM 3.1 mmol/L (3.5-5.1)
[2021-02-27 08:06] VITALS: BP 128/78
[2021-02-27] MEDS: NON-FORMULARY MEDICATION (Fluticasone/Vilanterol (Breo Ellipta 100-25 Mcg INH) 1 INH) INH SCH (08:28)
[2021-02-27] MEDS: SUCRALFATE 1 GM TAB PO SCH ×2 (08:29→16:30)
[2021-02-27] MEDS: ACETYLCYSTEINE 1000 MG PO SCH (08:29)
[2021-02-27] MEDS: CEFTRIAXONE 1 GM in SODIUM CHLORIDE 0.9% 50ML 50 ML IV SCH (08:29)
[2021-02-27] MEDS: TAMSULOSIN HCL 0.4 MG CAP PO SCH (08:29)
[2021-02-27] MEDS: DOCUSATE SODIUM 100 MG CAP PO SCH (08:29)
[2021-02-27] MEDS: GUAIFENESIN 600 MG TAB PO SCH (08:29)
[2021-02-27] MEDS ORDERED: ONDANSETRON HCL 4 MG ORAL DISINTEGRATING TAB PO PRN (11:00)
[2021-02-27 11:33] VITALS: BP 138/84
[2021-02-27] MEDS ORDERED: CEFUROXIME250 MG PO (15:48)
[2021-02-27 16:11] VITALS: BP 129/94
== END 2021-02-27 17:25 | disposition home or self-care (01) | DRG 713 ==
LOC: OR 07:43 → PACU V 10:20 → MED/SURG 11:05
PROVIDERS: ADMIT Internal Medicine; ATTEND Internal Medicine
PROC: BT14YZZ Fluoroscopy of Kidneys, Ureters and Bladder using Other Contrast (ICD-10-PCS; 2021-02-25)
PROC: 0T788ZZ Dilation of Bilateral Ureters, Via Natural or Artificial Opening Endoscopic (ICD-10-PCS; principal; 2021-02-25 09:00)
PROC: 0VB08ZZ Excision of Prostate, Via Natural or Artificial Opening Endoscopic (ICD-10-PCS; 2021-02-25 09:00)
DX: N40.1 Benign prostatic hyperplasia with lower urinary tract symptoms (principal); N13.8 Other obstructive and reflux uropathy; E87.6 Hypokalemia; I10 Essential (primary) hypertension; J44.9 Chronic obstructive pulmonary disease, unspecified; Z85.46 Personal history of malignant neoplasm of prostate; Z85.51 Personal history of malignant neoplasm of bladder; Z20.822 Contact with and (suspected) exposure to COVID-19
CPT/HCPCS: 36415; 71046; 74420; 80048; 80053; 83735; 85025; 93005; C1758; J0696; J1580; J3010; J7030; U0002